=== PATIENT | female | born 1955 | race Caucasian/White ===

== ENCOUNTER 2017-07-13 14:01 | Emergency (ER) | payer MEDICARE, OTHER ==
[~2017-07-13] VITALS: Ht 157.5 cm; Wt 54.4 kg
[~2017-07-13 14:01] MED LIST: ALDACTAZIDE 251 EACH PO; AMITRIPTYLINE H10 MG PO; BUSPIRONE HCL15 MG PO; CLONAZEPAM0.25 MG PO; DIVALPROEX SOD250 MG PO; EVENING PRIMRO500 M1 PO; FISH OIL 1,2001 EACH PO; LANOXIN125 MCG PO; METHOCARBAMOL500 MG PO; MIRALAX119 GM PO; MIRALAX17 GM PO; MULTI VITAMIN1 EACH PO; NEURONTIN300 MG PO; NORCO 5-325 TA1 EACH PO; OMEPRAZOLE40 MG PO; PAXIL40 MG PO; POTASSIUM CHLO10 ME1 PO; PROMETHAZINE-COD5 ML PO; RITALIN5 MG PO; TIZANIDINE HCL4 M1 PO; TOVIAZ8 MG PO; TYSABRI300 MG/15 IV; ZOCOR40 MG PO; ZYRTEC10 MG PO
--- NOTE | 2017-07-13 17:22 | EKG ---
[facility] [address] [facility] [place] [address] Signed Normal sinus rhythm Normal ECG No previous ECGs available Confirmed by NELIA BEYER MD ([id number]) on 07/13/2017 5:22:38 PM Electronically Signed By: NELIA BEYER MD 07/13/17 1722 PATIENT NAME: KEEGAN CURRY Electrocardiogram DATE OF : 55 PHYSICIAN: NELIA BEYER MD REPORT #: [id number] REPORT IS CONFIDENTIAL AND NOT TO BE RELEASED WITHOUT AUTHORIZATION
== END 2017-07-13 17:12 | disposition home or self-care (01) ==
LOC: ED 14:01
DX: R00.2 Palpitations (principal); R07.9 Chest pain, unspecified; R79.89 Other specified abnormal findings of blood chemistry; G35 Multiple sclerosis; I48.91 Unspecified atrial fibrillation; Z90.710 Acquired absence of both cervix and uterus; Z90.6 Acquired absence of other parts of urinary tract; Z88.1 Allergy status to other antibiotic agents; Z88.8 Allergy status to other drugs, medicaments and biological substances; Z79.899 Other long term (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
CPT/HCPCS: 71010; 80053; 80162; 84484; 85025; 93005; 93010; 99284

== ENCOUNTER 2021-01-06 14:30 | Emergency (ER) | payer MEDICARE, OTHER ==
[~2021-01-06] VITALS: Ht 157.5 cm; Wt 56.7 kg
--- OUTSIDE RECORDS SUMMARY | 2021-01-06 14:32 | XMS ---
PreManage Notification: KEEGAN CURRY Security Complaint Manager Events No recent Security Events currently on file CRITERIA MET - [facility] CARE PROVIDERS There are no care providers on record at this time. Xiao has no Care Guidelines for this patient. Birgit VISIT COUNT (12 MO.) 1 [facility] TOTAL 1 NOTE: Visits indicate total known visits. ED/C VISIT TRACKING (12 MO.) 01/06/2021 14:30 [facility] [place] TYPE: Emergency COMPLAINT: - HEADACHE, SORE THROAT, FATIGUE INPATIENT VISIT TRACKING (12 MO.) No inpatient visits to display in this time frame [id number]
[2021-01-06] MEDS ORDERED: GABAPENTIN300 MG PO (15:02)
[2021-01-06] MEDS ORDERED: SUDOGEST30 MG PO (15:03)
[2021-01-06] MEDS ORDERED: DILTIAZEM ER120 MG PO (15:13)
[2021-01-06] MEDS ORDERED: TROSPIUM CHLORI20 MG PO (15:14)
[2021-01-06] MEDS ORDERED: ALLERGY RELIEF10 M1 PO (15:16)
[2021-01-06] MEDS ORDERED: CO Q-10200 MG PO (15:17)
[2021-01-06] MEDS ORDERED: COLACE100 MG PO (15:18)
[2021-01-06] MEDS ORDERED: TYSABRI300 MG/15 IV (15:21)
[2021-01-06] MEDS ORDERED: XALATAN2.5 ML OPTH (15:21)
[2021-01-06] MEDS ORDERED: ACETAMINOPHEN500 MG PO (15:22)
[2021-01-06] MEDS ORDERED: ACETAMINOPHEN-1 EAC1 PO (19:11)
[2021-01-06] MEDS ORDERED: AUGMENTIN 875-1 EACH PO (19:11)
== END 2021-01-06 19:22 | disposition home or self-care (01) ==
LOC: ED 14:30
DX: J32.1 Chronic frontal sinusitis (principal); J32.2 Chronic ethmoidal sinusitis; I48.91 Unspecified atrial fibrillation; Z88.8 Allergy status to other drugs, medicaments and biological substances; Z88.1 Allergy status to other antibiotic agents; Z79.899 Other long term (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
CPT/HCPCS: 70450; 80053; 81001; 85025; 96361; 96374; 99284-25; J1885; J7030

== ENCOUNTER → 2021-06-23 | Emergency (ER) | payer MEDICARE, OTHER ==
[~2021-06-23] VITALS: Ht 157.5 cm; Wt 56.7 kg
[~2021-06-23] MED LIST changes: +ACETAMINOPHEN-1 EAC1 PO; +ACETAMINOPHEN500 MG PO; +ALLERGY RELIEF10 M1 PO; +AUGMENTIN 875-1 EACH PO; +CO Q-10200 MG PO; +COLACE100 MG PO; +DILTIAZEM ER120 MG PO; +GABAPENTIN300 MG PO; +HYDROCODON-ACE1 EA10 PO; +KLONOPIN0.5 MG PO; +LIPITOR80 MG GT; +PROBIOTIC1 EAC1 PO; +SUDOGEST30 MG PO; +TROSPIUM CHLORI20 MG PO; +VITAMIN D350 MCG PO; +XALATAN2.5 ML OPTH
== END ==
LOC: ED 09:01
DX: S22.32XA Fracture of one rib, left side, initial encounter for closed fracture (principal); W18.39XA Other fall on same level, initial encounter; I48.91 Unspecified atrial fibrillation; Z88.8 Allergy status to other drugs, medicaments and biological substances; Z88.1 Allergy status to other antibiotic agents; Z88.5 Allergy status to narcotic agent; Z79.899 Other long term (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
CPT/HCPCS: 71101; 99283-25

== ENCOUNTER 2021-07-05 12:10 | Emergency (ER) | payer MEDICARE, OTHER ==
[~2021-07-05] VITALS: Ht 157.5 cm; Wt 56.7 kg
--- OUTSIDE RECORDS SUMMARY | 2021-07-05 12:14 | XMS ---
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 Birgit VISIT COUNT (12 MO.) [address] [place] [address] TOTAL 3 NOTE: Visits indicate total known visits. ED/UCC VISIT TRACKING (12 MO.) 07/05/2021 12:12 [facility] [place] TYPE: Emergency COMPLAINT: - FALL 06/23/2021 09:01 [facility] [place] TYPE: Emergency COMPLAINT: - FALL DIAGNOSES: - Allergy status to narcotic agent - Allergy status to other drugs, medicaments and biological substances - Pleurodynia - Allergy status to other antibiotic agents - Fracture of one rib, left side, initial encounter for closed fracture - Other iphone developer (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 - Unspecified atrial fibrillation - Other fall on same level, initial encounter 01/06/2021 14:30 [facility] [place] TYPE: Emergency COMPLAINT: - HEADACHE, SORE THROAT, FATIGUE DIAGNOSES: - Unspecified atrial fibrillation - Allergy status to other drugs, medicaments and biological substances - Chronic ethmoidal sinusitis - Chronic frontal sinusitis - Other senior care (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 - Allergy status to other antibiotic agents - Headache, unspecified INPATIENT VISIT TRACKING (12 MO.) No inpatient visits to display in this time frame [id number]
[2021-07-05] MEDS ORDERED: HYDROCODON-ACE1 EA10 PO (15:39)
== END 2021-07-05 15:50 | disposition home or self-care (01) ==
LOC: ED 12:10
DX: S22.31XA Fracture of one rib, right side, initial encounter for closed fracture (principal); W18.30XA Fall on same level, unspecified, initial encounter; I48.91 Unspecified atrial fibrillation; Z88.8 Allergy status to other drugs, medicaments and biological substances; Z88.5 Allergy status to narcotic agent; Z88.1 Allergy status to other antibiotic agents; Z79.899 Other long term (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
CPT/HCPCS: 71101; 99283-25

== ENCOUNTER 2021-09-21 11:32 | Emergency (ER) | payer MEDICARE, OTHER ==
[~2021-09-21] VITALS: Ht 157.5 cm; Wt 56.7 kg
--- OUTSIDE RECORDS SUMMARY | 2021-09-21 11:34 | XMS ---
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 EAylin VISIT COUNT (12 MO.) 4 [facility] Russell TOTAL 4 NOTE: Visits indicate total known visits. ED/UCC VISIT TRACKING (12 MO.) 09/21/2021 11:33 [facility] [place] TYPE: Emergency COMPLAINT: - FALL,BACK PAIN 07/05/2021 12:12 [facility] [place] TYPE: Emergency COMPLAINT: - FALL DIAGNOSES: - Fall on same level, unspecified, initial encounter - Allergy status to other drugs, medicaments and biological substances - Fracture of one rib, right side, initial encounter for closed fracture - Unspecified atrial fibrillation - Allergy status to narcotic agent - Allergy status to other antibiotic agents - Other [place] 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 - Other chest pain 06/23/2021 09:01 [facility] [place] TYPE: Emergency COMPLAINT: - FALL DIAGNOSES: - Allergy status to narcotic agent - Allergy status to other drugs, medicaments and biological substances - Pleurodynia - Allergy status to other antibiotic agents - Fracture of one rib, left side, initial encounter for closed fracture - Other [place] [facility] (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 - Unspecified atrial fibrillation - Other fall on same level, initial encounter 01/06/2021 14:[address] [facility] [place] TYPE: Emergency COMPLAINT: - HEADACHE, SORE THROAT, FATIGUE DIAGNOSES: - Unspecified atrial fibrillation - Allergy status to other drugs, medicaments and biological substances - Chronic ethmoidal sinusitis - Chronic frontal sinusitis - Other terminal operations manager (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 - Allergy status to other antibiotic agents - Headache, unspecified INPATIENT VISIT TRACKING (12 MO.) No inpatient visits to display in this time frame [id number]
== END 2021-09-21 13:10 | disposition home or self-care (01) ==
LOC: ED 11:32
DX: S20.222A Contusion of left back wall of thorax, initial encounter (principal); S20.219A Contusion of unspecified front wall of thorax, initial encounter; W18.30XA Fall on same level, unspecified, initial encounter; I48.91 Unspecified atrial fibrillation; Z88.8 Allergy status to other drugs, medicaments and biological substances; Z88.5 Allergy status to narcotic agent; Z88.1 Allergy status to other antibiotic agents; Z79.899 Other long term (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
CPT/HCPCS: 71046; 72100; 99283-25

== ENCOUNTER 2021-12-10 15:19 | Emergency (ER) | payer OTHER, MEDICARE ==
[~2021-12-10] VITALS: Ht 157.5 cm; Wt 59.0 kg
--- OUTSIDE RECORDS SUMMARY | 2021-12-10 15:22 | XMS ---
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 EAylin VISIT COUNT (12 MO.) 5 [facility] Russell TOTAL 5 NOTE: Visits indicate total known visits. ED/UCC VISIT TRACKING (12 MO.) 12/10/2021 15:19 [facility] [place] TYPE: Emergency COMPLAINT: - FALL 09/21/2021 11:33 [facility] [place] TYPE: Emergency COMPLAINT: - FALL,BACK PAIN DIAGNOSES: - Allergy status to other antibiotic agents - Contusion of left back wall of thorax, initial encounter - Unspecified atrial fibrillation - Other terminal supervisor (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 - LOW BACK PAIN, UNSPECIFIED - Allergy status to narcotic agent - Fall on same level, unspecified, initial encounter - Contusion of unspecified front wall of thorax, initial encounter - Allergy status to other drugs, medicaments and biological substances 07/05/2021 12:12 [facility] [place] TYPE: Emergency COMPLAINT: - FALL DIAGNOSES: - Fall on same level, unspecified, initial encounter - Allergy status to other drugs, medicaments and biological substances - Fracture of one rib, right side, initial encounter for closed fracture - Unspecified atrial fibrillation - Allergy status to narcotic agent - Allergy status to other antibiotic agents - Other [facility] (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 - Other chest pain 06/23/2021 09:01 [facility] [place] TYPE: Emergency COMPLAINT: - FALL DIAGNOSES: - Allergy status to narcotic agent - Allergy status to other drugs, medicaments and biological substances - Pleurodynia - Allergy status to other antibiotic agents - Fracture of one rib, left side, initial encounter for closed fracture - Other terminal supervisor (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 - Unspecified atrial fibrillation - Other fall on same level, initial encounter 01/06/2021 14:30 [facility] [place] TYPE: Emergency COMPLAINT: - HEADACHE, SORE THROAT, FATIGUE DIAGNOSES: - Unspecified atrial fibrillation - Allergy status to other drugs, medicaments and biological substances - Chronic ethmoidal sinusitis - Chronic frontal sinusitis - Other terminal supervisor (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 - Allergy status to other antibiotic agents - Headache, unspecified INPATIENT VISIT TRACKING (12 MO.) No inpatient visits to display in this time frame [id number]
[2021-12-10] MEDS ORDERED: NAPROSYN500 MG PO (15:51)
== END 2021-12-10 16:20 | disposition home or self-care (01) ==
LOC: ED 15:19
DX: S93.402A Sprain of unspecified ligament of left ankle, initial encounter (principal); G35 Multiple sclerosis; I48.91 Unspecified atrial fibrillation; Z88.5 Allergy status to narcotic agent; Z88.8 Allergy status to other drugs, medicaments and biological substances; Z88.1 Allergy status to other antibiotic agents; Z79.899 Other long term (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; W18.30XA Fall on same level, unspecified, initial encounter
CPT/HCPCS: 73610; 99283-25

== ENCOUNTER 2022-01-21 12:10 | Emergency (ER) | payer MEDICARE, OTHER ==
[~2022-01-21] VITALS: Ht 157.5 cm; Wt 59.0 kg
[~2022-01-21 12:10] MED LIST changes: +NAPROSYN500 MG PO
--- OUTSIDE RECORDS SUMMARY | 2022-01-21 12:12 | XMS ---
PreManage Notification: KEEGAN CURRY Security Feather Stitcher Events No recent Security Events currently on file CRITERIA MET - [facility] - 2 Visits in 30 Days CARE PROVIDERS GLORIA NEAL [facility] 01/07/2021-Current PHONE: [phone] Xiao has no Care Guidelines for this patient. Birgit VISIT COUNT (12 MO.) [address] [place] [address] TOTAL 6 NOTE: Visits indicate total known visits. 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 (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 - Allergy status to other antibiotic agents - Unspecified atrial fibrillation - Retention of urine, unspecified - Allergy status to narcotic agent - Multiple sclerosis - Allergy status to other drugs, medicaments and biological substances 12/10/2021 15:19 [facility] [place] TYPE: Emergency COMPLAINT: - FALL DIAGNOSES: - Other detention (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 - Pain in left ankle and joints of left foot - Sprain of unspecified ligament of left ankle, initial encounter - Allergy status to other drugs, medicaments and biological substances - Fall on same level, unspecified, initial encounter - Multiple sclerosis - Allergy status to other antibiotic agents - Allergy status to narcotic agent - Unspecified atrial fibrillation 09/21/2021 11:33 [facility] [place] TYPE: Emergency COMPLAINT: - FALL,BACK PAIN DIAGNOSES: - Allergy status to other antibiotic agents - Contusion of left back wall of thorax, initial encounter - Unspecified atrial fibrillation - Other dedicated intermodal truck driver (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 - LOW BACK PAIN, [...] status to other antibiotic agents - Other dedicated intermodal truck driver (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 - Other chest pain 06/23/2021 09:[address] [facility] [place] TYPE: Emergency COMPLAINT: - FALL DIAGNOSES: - Allergy status to narcotic agent - Allergy status to other drugs, medicaments and biological substances - Pleurodynia - Allergy status to other antibiotic agents - Fracture of one rib, left side, initial encounter for closed fracture - Other dedicated intermodal truck driver (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 - Unspecified atrial fibrillation - Other fall on same level, initial encounter INPATIENT VISIT TRACKING (12 MO.) No inpatient visits to display in this time frame [id number]
== END 2022-01-21 16:16 | disposition home or self-care (01) ==
LOC: ED 12:10
DX: R41.0 Disorientation, unspecified (principal); G35 Multiple sclerosis; I48.91 Unspecified atrial fibrillation; Z88.8 Allergy status to other drugs, medicaments and biological substances; Z88.5 Allergy status to narcotic agent; Z88.1 Allergy status to other antibiotic agents; Z79.899 Other long term (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
CPT/HCPCS: 36415; 80053; 80164; 81001; 85025; 99285

== ENCOUNTER 2022-05-02 17:35 | Emergency (ER) | payer MEDICARE, OTHER ==
[~2022-05-02] VITALS: Ht 157.5 cm; Wt 55.7 kg
--- OUTSIDE RECORDS SUMMARY | 2022-05-02 17:38 | XMS ---
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 EAylin VISIT COUNT (12 MO.) 8 [facility] Russell TOTAL 8 NOTE: Visits indicate total known visits. ED/UCC VISIT TRACKING (12 MO.) 05/02/2022 17:35 [facility] [place] TYPE: Emergency COMPLAINT: - FALL,HEAD INJ 02/06/2022 14:[address] [facility] [place] TYPE: Emergency COMPLAINT: - CATHETER REPLACEMENT 01/21/2022 12:[address] [facility] [place] TYPE: Emergency COMPLAINT: - POSS UTI DIAGNOSES: - Allergy status to other antibiotic agents - Allergy status to narcotic agent - Other terminal carman (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 - Disorientation, unspecified - Multiple sclerosis - Allergy status to other drugs, medicaments and biological substances - Unspecified atrial fibrillation 01/12/2022 14:29 [facility] [place] TYPE: Emergency COMPLAINT: - URINE PROBLEM DIAGNOSES: - Other longterm (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 - Allergy status to other antibiotic agents - Unspecified atrial fibrillation - Retention of urine, unspecified - Allergy status to narcotic agent - Multiple sclerosis - Allergy status to other drugs, medicaments and biological substances 12/10/2021 15:19 [facility] [place] TYPE: Emergency COMPLAINT: - FALL DIAGNOSES: - Other terminal carman (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 - Pain in left [...] Allergy status to other antibiotic agents - Low back pain, unspecified - Contusion of left back wall of thorax, initial encounter - Unspecified atrial fibrillation - Other terminal carman (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 - LOW BACK PAIN, [...] status to other antibiotic agents - Other longterm (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 - Other chest pain 06/23/2021 09:01 [facility] [place] TYPE: Emergency COMPLAINT: - FALL DIAGNOSES: - Allergy status to narcotic agent - Allergy status to other drugs, medicaments and biological substances - Pleurodynia - Allergy status to other antibiotic agents - Fracture of one rib, left side, initial encounter for closed fracture - Other terminal carman (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 - Unspecified atrial fibrillation - Other fall on same level, initial encounter INPATIENT VISIT TRACKING (12 MO.) No inpatient visits to display in this time frame [id number]
== END 2022-05-02 21:54 | disposition home or self-care (01) ==
LOC: ED 17:35
DX: S01.111A Laceration without foreign body of right eyelid and periocular area, initial encounter (principal); S16.1XXA Strain of muscle, fascia and tendon at neck level, initial encounter; S40.011A Contusion of right shoulder, initial encounter; W05.0XXA Fall from non-moving wheelchair, initial encounter; Z23 Encounter for immunization; I48.91 Unspecified atrial fibrillation; Z88.8 Allergy status to other drugs, medicaments and biological substances; Z88.5 Allergy status to narcotic agent; Z88.1 Allergy status to other antibiotic agents; Z79.899 Other long term (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
CPT/HCPCS: 12011; 70450; 72125; 73030; 90471; 90714; 99284-25; A9270

== ENCOUNTER 2022-05-15 05:45 | Day surgery (SDC) | payer MEDICARE, OTHER ==
[~2022-05-15] VITALS: Ht 157.5 cm; Wt 53.6 kg
[~2022-05-15 05:45] MED LIST changes: +MELATONIN5 M2 PO
--- NOTE | 2022-05-15 07:38 | NUR ---
PATIENT STATES SHE FELL WHILE PULLING WEEDS AND SPLIT HER UPPER RIGHT EYELID. SHE CURRENTLY HAS IT COVERED WITH STERI STRIPS. HER WHOLE RIGHT EYELID IS BRUISED.
--- NOTE | 2022-05-15 08:17 | NUR ---
05/15/22 0817 Tomasa Proctor 0805-PT TO PACU IN LL POSITION. REACTIVIE TO TACTILE AND VERBAL STIMULI BUT DOES NOT FOLLOW COMMANDS. BREATHING EASY AND UNLABORED. ORAL AIRWAY IN PLACE. SPO2 >95% ON 10L O2 VIA SIMPLE MASK. 0809-PT RESPOND TO VERBAL AND TACTILE SIMULI. DROWSY BUT FOLLOWS COMMANDS. ORAL AIRWAY REMOVED. PT ENCORUAGED TO COUGH AND TAKE DEEP BREATHS. COPIOUS ORAL SECRETIONS. PT SUCTIONED. O2 TITRATED DOWN TO 4 LPM VIA NC. 0815- PT DROWSY BUT AWAKE. VERBALIZING NEEDS OF TISSUE AND ABDOMINAL CRAMPING. PT ENCOURAGED TO PASS GAS. BREATHING EASY AND UNLABORED. SPO2 >95% O2 TITRATED DOWN TO 2LPM VIA NC.
--- NOTE | 2022-05-15 10:56 | OR ---
[facility] [address] [place], [place] [address] Signed DATE OF OPERATION: 05/15/2022 SURGEON: Evelia Vanegas MD PREOPERATIVE DIAGNOSES: 1. History of melanosis coli. 2. History of ischemic colon. 3. History of gastritis. 4. Progressing multiple sclerosis with proximal esophageal dysphagia. 5. Epigastric pain. 6. Melena. 7. Weight loss. 8. Gastroesophageal reflux disease. 9. History of GI bleeds, previously on NSAIDs. POSTOPERATIVE DIAGNOSES: 1. Mild diffuse gastritis. 2. 4 mm polyp proximal hepatic flexure. 3. 7 mm polyp proximal transverse colon (snare). 4. 3 mm polyps x2 at 8 cm. 5. Minimal internal hemorrhoid tissue. PROCEDURES: 1. EGD with CLOtest and biopsy of the antrum. 2. Colonoscopy with snare polypectomy and hot biopsy. ESTIMATED BLOOD LOSS: None. INDICATIONS: Valdez is a 66-year-old female, who unfortunately has progressive multiple sclerosis with proximal esophageal dysphagia. She is now in a wheelchair and had come to the office for upper and lower endoscopy. I helped her with colonoscopy in 2005. She had melanosis coli at that time. I helped with upper lower endoscopy in 2007. She had some gastritis with a negative CLOtest. The colonoscopy was negative at that time. She had done well with Versed and fentanyl but had significant postoperative nausea and vomiting. She went to our [facility] in 2016 and underwent colonoscopy with Dr. Brooke for significant ischemic colitis. This did not require surgery. Her anal sphincter tone continues to decrease as the multiple sclerosis has been advancing. Her swallowing has become progressively more difficult. She is losing weight and having Electronically Signed By: EVELIA VANEGAS MD 05/15/22 1056 PATIENT NAME: VALDEZ CURRY OPERATIVE REPORT DATE OF : 55 REPORT #: [id number] PHYSICIAN: EVELIA VANEGAS MD PCP: CHRISS NEAL MD REPORT IS CONFIDENTIAL AND NOT TO BE RELEASED WITHOUT AUTHORIZATION [facility] [address] [place], [place] [address] Signed epigastric abdominal pain. There is some concern about melena. However, her stool guaiac has been negative. Apparently, she has acid reflux in the past. She changed her and apparently the melanosis coli had resolved as well. In the office, I gave Valdez and her family pamphlets on both upper and lower endoscopy. We had reviewed the nature of the two tests. There is risk including, but not limited to gas bloating, crampy abdominal pain, bleeding, perforation requiring surgery, and missed diagnosis. In addition, because of her advancing multiple sclerosis and her very frail nature, we asked for monitored anesthesia care with propofol infusion. She had expressed understanding and wished to proceed. PROCEDURE NOTE: Valdez was taken into our endoscopy suite and placed in a supine semi-recumbent position. She has resolving ecchymoses around her right eye and some on the left eye which she fell out of her chair while she was trying to pull weeds outside. She is legally blind. The posterior oropharynx was anesthetized with lidocaine spray. A bite block was utilized for the case. She was given monitored anesthesia care with propofol per our nurse hall monitor. The adult gastroscope was introduced and advanced out the third portion of the duodenum without difficulty. The duodenum and pyloric channel were unremarkable. The stomach is the same. Very mild diffuse erythematous changes throughout the stomach. We took a biopsy from the antrum for CLOtest as well as pathologic review. Upon retroflexion of scope, she has the typical multiple benign-appearing polyps from using her proton pump inhibitor over the years. There was no evidence of hiatal hernia. The scope was withdrawn up through the area of the GE junction, which was compliant without stricture. There was no gastric or esophageal varices. Little or no disruption to the Z-line. There was no Stout's mucosa. There was no distal esophagitis. The middle and upper esophagus were unremarkable. What I can see around the vocal cords and her arytenoids, it is all fine as well. After this, the gas was suctioned out and the gastroscope removed. Valdez was rotated into the left lateral decubitus position. She was maintained on IV propofol per our nurse hall monitor. A digital rectal exam was performed and this was unremarkable. The adult colonoscope had been introduced and advanced under direct visualization of the camera. She has essentially no muscle mass in the muscle tone. We could easily see the scope has passed through the through her colon including the light underneath the right ribcage. With all due care and mild abdominal compression, we were able to advance the scope into the cecum itself. Her prep was good. We could easily see the appendiceal orifice and ileocecal valve. The scope was then slowly withdrawn. We removed the above mentioned polyps with the help of hot biopsy forceps. We did use the snare on the proximal transverse colon. That polyp had been suctioned through the scope. There was no diverticulosis. Once in the rectum, the scope had been retroflexed and she has very minimal internal hemorrhoid tissue. This tissue was not irritated whatsoever. After this, the gas was suctioned out and the colonoscope removed. Valdez Electronically Signed By: EVELIA VANEGAS MD 05/15/22 1056 PATIENT NAME: VALDEZ CURRY OPERATIVE REPORT DATE OF : 55 REPORT #: [id number] PHYSICIAN: EVELIA VANEGAS MD PCP: CHRISS NEAL MD REPORT IS CONFIDENTIAL AND NOT TO BE RELEASED WITHOUT AUTHORIZATION [address] [place], [place] [address] Signed tolerated the procedure quite well. RECOMMENDATIONS: Valdez will follow up in my office in 7 to 14 days to review her results. Unfortunately, it looks like her MS continues to progress. Evelia Vanegas MD ALB/MODL /[id number] cc: MD Dr. Chriss Contreras Copies: EVELIA VANEGAS MD ~ Electronically Signed By: EVELIA VANEGAS MD 05/15/22 1056 PATIENT NAME: VALDEZ CURRY OPERATIVE REPORT DATE OF : 55 REPORT #: [id number] PHYSICIAN: EVELIA VANEGAS MD PCP: CHRISS NEAL MD REPORT IS CONFIDENTIAL AND NOT TO BE RELEASED WITHOUT AUTHORIZATION
--- NOTE | 2022-05-18 10:26 | PATH ---
[facility] [address] [place], [place] [address] Signed SPECIMEN(S): A ANTRUM/PYLORUS BIOPSY SPECIMEN(S): B DISTAL HEPATIC FLEXURE COLON POLYP SPECIMEN(S): C PROXIMAL TRANSVERSE COLON POLYP SPECIMEN(S): D RECTAL POLYP AT 8 CM SPECIMEN SOURCE: A. ANTRUM/PYLORUS BIOPSY B. DISTAL HEPATIC FLEXURE COLON POLYP C. PROXIMAL TRANSVERSE COLON POLYP D. RECTAL POLYP AT 8 CM CLINICAL HISTORY: Esophagogastroduodenoscopy/colonoscopy. Epigastric pain, GERD, melena, MS. Postop: Gastritis, colon and rectal polyps. FINAL PATHOLOGIC DIAGNOSIS: A. Stomach, antrum/pylorus, biopsy: - Antral mucosa with reactive gastropathy. - Negative for Helicobacter organisms on HE stain. - Negative for dysplasia or malignancy. B. Colon, distal hepatic flexure, polyp, polypectomy: - Fragments of tubular adenoma. - Negative for high-grade dysplasia or malignancy. C. Colon, proximal transverse, polyp, polypectomy: - Fragments of tubular adenoma. - Negative for high-grade dysplasia or malignancy. D. Rectum, polyp, polypectomy: - Hyperplastic polyp. - Negative for dysplasia or malignancy. NAL:cml:C2NR MICROSCOPIC EXAMINATION: Histologic sections of all submitted blocks are examined by light microscopy. These findings, together with the gross examination, support the pathologic diagnosis. GROSS DESCRIPTION: Four specimens are received in four containers labeled with "LD." A. The specimen, labeled "LD, 1," and designated on the requisition "antrum/pylorus biopsy," is received in formalin and consists of one fragment of pink-brambila tissue (0.3 cm in greatest dimension). PATIENT NAME: KEEGAN CURRY PATHOLOGY DATE OF : 55 REPORT #: [id number] PHYSICIAN: BERNARDO CAPPS PCP: GLORIA NEAL MD REPORT IS CONFIDENTIAL AND NOT TO BE RELEASED WITHOUT AUTHORIZATION [facility] [address] [place], [place] [address] Signed The specimen is submitted entirely in cassette (A1). B. The specimen, labeled "LD, 2," and designated on the requisition "distal hepatic flexure polypectomy," is received in formalin and consists of two fragments of pink-brambila tissue (0.3 cm in greatest dimension). The specimen is submitted entirely in cassette (B1). C. The specimen, labeled "LD, 3," and designated on the requisition "proximal transverse polypectomy," is received in formalin and consists of four fragments of pink-brambila tissue (0.2-0.7 cm in greatest dimension). The specimen is submitted entirely in cassette (C1). D. The specimen, labeled "LD, 4," and designated on the requisition "8 cm rectum polypectomy," is received in formalin and consists of four fragments of pink-brambila tissue (0.2 cm in greatest dimension). The specimen is submitted entirely in cassette (D1). AC (under the direct supervision of a pathologist) The Gross Description was prepared using a voice recognition system. The report was reviewed for accuracy; however, sound-alike word errors, addition and/or deletions may occur. If there is any question about this report, please contact Client Services. PERFORMING LABORATORY: The technical component was performed by [facility], [address] [place] [id number] (CLIA# [id number]). Professional interpretation was performed by [facility], [facility], [address] [address] (CLIA# [id number]). Diagnostician: Lisa Ellis MD Pathologist Electronically Signed 05/18/2022 Copies: ~ PATIENT NAME: KEEGAN CURRY PATHOLOGY DATE OF : 55 REPORT #: [id number] PHYSICIAN: BERNARDO PATHOLOGY PCP: GLORIA NEAL MD REPORT IS CONFIDENTIAL AND NOT TO BE RELEASED WITHOUT AUTHORIZATION
== END 2022-05-15 09:00 | disposition home or self-care (01) ==
LOC: OPS 05:45 → DS 05:45 → OPS 06:00 → DS 08:15 → OPS 09:00
PROVIDERS: ATTEND Colon & Rectal Surgery
PROC: 0DBP8ZX Excision of Rectum, Via Natural or Artificial Opening Endoscopic, Diagnostic (ICD-10-PCS; 2022-05-15)
PROC: 0DBL8ZX Excision of Transverse Colon, Via Natural or Artificial Opening Endoscopic, Diagnostic (ICD-10-PCS; 2022-05-15)
PROC: 0DB78ZX Excision of Stomach, Pylorus, Via Natural or Artificial Opening Endoscopic, Diagnostic (ICD-10-PCS; principal; 2022-05-15 07:00)
PROC: 0DBL8ZX Excision of Transverse Colon, Via Natural or Artificial Opening Endoscopic, Diagnostic (ICD-10-PCS; 2022-05-15 07:00)
DX: K31.9 Disease of stomach and duodenum, unspecified (principal); D12.3 Benign neoplasm of transverse colon; K62.1 Rectal polyp; K29.70 Gastritis, unspecified, without bleeding; K64.8 Other hemorrhoids; G35 Multiple sclerosis; R13.14 Dysphagia, pharyngoesophageal phase; K21.9 Gastro-esophageal reflux disease without esophagitis; H54.8 Legal blindness, as defined in USA; M81.0 Age-related osteoporosis without current pathological fracture; E78.5 Hyperlipidemia, unspecified; I10 Essential (primary) hypertension; Z88.6 Allergy status to analgesic agent; Z88.5 Allergy status to narcotic agent; Z88.8 Allergy status to other drugs, medicaments and biological substances
CPT/HCPCS: 36415; 87077; J0690; J2704

== ENCOUNTER 2022-07-18 10:15 | Emergency (ER) | payer MEDICARE, OTHER ==
[~2022-07-18] VITALS: Ht 157.5 cm; Wt 53.9 kg
--- OUTSIDE RECORDS SUMMARY | 2022-07-18 10:18 | XMS ---
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 EAylin VISIT COUNT (12 MO.) 7 [facility] TOTAL 7 NOTE: Visits indicate total known visits. 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 - Allergy status to other drugs, medicaments and biological substances - Encounter for immunization - Laceration without foreign body of right eyelid and periocular area, initial encounter - Unspecified atrial fibrillation - Allergy status to narcotic agent - Allergy status to other antibiotic agents - Fall from non-moving wheelchair, initial encounter - Strain of muscle, fascia and tendon at neck level, initial encounter 02/06/2022 14:20 [facility] [place] TYPE: Emergency COMPLAINT: - CATHETER REPLACEMENT 01/21/2022 12:11 [facility] [place] TYPE: Emergency COMPLAINT: - POSS UTI DIAGNOSES: - Multiple sclerosis - Other long 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 care social worker (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 - Allergy status to other antibiotic agents - Allergy status to other drugs, medicaments and biological substances - Disorientation, unspecified - Allergy status to narcotic agent - Unspecified atrial fibrillation 01/12/2022 14:29 [facility] [place] TYPE: Emergency COMPLAINT: - URINE PROBLEM DIAGNOSES: - Allergy status to narcotic agent - Unspecified atrial fibrillation - Other long term care social worker (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 - Multiple sclerosis - Retention of urine, unspecified - Allergy status to other antibiotic agents - Allergy status to other drugs, medicaments and biological substances 12/10/2021 15:19 [facility] [place] TYPE: Emergency COMPLAINT: - FALL DIAGNOSES: - Fall on same level, unspecified, initial encounter - Sprain of unspecified ligament of left ankle, initial encounter - Other snf (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 - Allergy status to narcotic agent - Multiple sclerosis - Allergy status to other drugs, medicaments and biological substances - Pain in left ankle and joints of left foot - Unspecified atrial fibrillation - Allergy status to other antibiotic agents 09/21/2021 11:[address] [facility] [place] TYPE: Emergency COMPLAINT: - FALL,BACK PAIN DIAGNOSES: - Other long term care social worker (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 - Contusion of left back wall of thorax, initial encounter - Allergy status to other drugs, medicaments and biological substances - Allergy status to other antibiotic agents - Fall on same level, unspecified, initial encounter - LOW BACK PAIN, UNSPECIFIED - Unspecified atrial fibrillation - Low back pain, unspecified - Contusion of unspecified front wall of thorax, initial encounter - Allergy status to narcotic agent INPATIENT VISIT TRACKING (12 MO.) No inpatient visits to display in this time frame [email or web address]
[2022-07-18] MEDS ORDERED: HYDROCODON-ACE1 EA10 PO (15:50)
--- NOTE | 2022-07-19 16:21 | EKG ---
[facility] [address] [place] [address] Signed Normal sinus rhythm Normal ECG When compared with ECG of 13-MAY-2022 15:49, Nonspecific T wave abnormality has replaced inverted T waves in Inferior leads Confirmed by NELIA BEYER MD ([id number]) on 07/19/2022 4:21:41 PM Electronically Signed By: NELIA BEYER MD 07/19/22 1621 PATIENT NAME: LUIS CURRYINDIRA RICHTER Electrocardiogram DATE OF : 55 PHYSICIAN: NELIA BEYER MD REPORT #: [id number] REPORT IS CONFIDENTIAL AND NOT TO BE RELEASED WITHOUT AUTHORIZATION
== END 2022-07-18 16:33 | disposition home or self-care (01) ==
LOC: ED 10:15
DX: R07.89 Other chest pain (principal); I48.91 Unspecified atrial fibrillation; R00.0 Tachycardia, unspecified; Z88.6 Allergy status to analgesic agent; Z88.1 Allergy status to other antibiotic agents; Z88.5 Allergy status to narcotic agent; Z88.8 Allergy status to other drugs, medicaments and biological substances; Z79.899 Other long term (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
CPT/HCPCS: 36415; 71045; 71260; 80053; 83690; 84484; 85025; 85379; 93005; 93010; 96374; 96375; 99285-25; J2270; J2405; Q9967

== ENCOUNTER 2022-12-01 09:00 | Emergency (ER) | payer MEDICARE, OTHER ==
[~2022-12-01] VITALS: Ht 157.5 cm; Wt 53.9 kg
--- OUTSIDE RECORDS SUMMARY | 2022-12-01 09:03 | XMS ---
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 EAylin VISIT COUNT (12 MO.) 7 VENEC[facility] Russell TOTAL 7 NOTE: Visits indicate total known visits. ED/UCC VISIT TRACKING (12 MO.) 12/01/2022 09:00 [facility] [place] TYPE: Emergency COMPLAINT: - SYNCOPE EPISODE, HEAD INJURY 07/18/2022 10:16 [facility] [place] TYPE: Emergency COMPLAINT: - ABD PAIN DIAGNOSES: - Allergy status to other antibiotic agents - Other chest pain - Other long-term (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 - Unspecified atrial fibrillation - Allergy status to other drugs, medicaments and biological substances - Allergy status to analgesic agent - Tachycardia, unspecified - Allergy status to narcotic agent 05/02/2022 17:35 [facility] [place] TYPE: Emergency COMPLAINT: - FALL,HEAD INJ DIAGNOSES: - Encounter for immunization - Laceration without foreign body of right eyelid and periocular area, initial encounter - Unspecified atrial fibrillation - Allergy status to narcotic agent - Allergy status to other antibiotic agents - Fall from non-moving wheelchair, initial encounter - Strain of muscle, fascia and tendon at neck level, initial encounter - Contusion of right shoulder, initial encounter - Other long-term (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 - Allergy status to other drugs, medicaments and biological substances 02/06/2022 14:[address] [facility] [place] TYPE: Emergency COMPLAINT: - CATHETER REPLACEMENT 01/21/2022 12:[address] 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 [place] TYPE: Emergency COMPLAINT: - FALL DIAGNOSES: - Other long-term (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 - Allergy status to narcotic agent - Multiple sclerosis - Allergy status to other drugs, medicaments and biological substances - Pain in left ankle and joints of left foot - Unspecified atrial fibrillation - Allergy status to other antibiotic agents - Fall on same level, unspecified, initial encounter - Sprain of unspecified ligament of left ankle, initial encounter INPATIENT VISIT TRACKING (12 MO.) No inpatient visits to display in this time frame [id number]
--- NOTE | 2022-12-01 21:40 | EKG ---
[facility] [address] [place] [address] Signed Normal sinus rhythm Minimal voltage criteria for LVH, may be normal variant ( R in aVL ) Cannot rule out Anterior infarct , age undetermined Abnormal ECG When compared with ECG of 18-JUL-2022 10:57, Minimal criteria for Anterior infarct are now present Inverted T waves have replaced nonspecific T wave abnormality in Inferior leads Confirmed by Genesis Mena MD () on 12/01/2022 9:40:18 PM Electronically Signed By: GENESIS MENA MD 12/01/22 2140 PATIENT NAME: KEEGAN CURRY Electrocardiogram DATE OF : 55 PHYSICIAN: GENESIS MENA MD REPORT #: [id number] REPORT IS CONFIDENTIAL AND NOT TO BE RELEASED WITHOUT AUTHORIZATION
== END 2022-12-01 15:46 | disposition home or self-care (01) ==
LOC: ED 09:00
DX: G35 Multiple sclerosis (principal); Z20.822 Contact with and (suspected) exposure to COVID-19; W05.0XXA Fall from non-moving wheelchair, initial encounter; I48.91 Unspecified atrial fibrillation; Z88.8 Allergy status to other drugs, medicaments and biological substances; Z88.5 Allergy status to narcotic agent; Z88.1 Allergy status to other antibiotic agents; Z79.899 Other long term (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
CPT/HCPCS: 36415; 71045; 80053; 81001; 85025; 87502; 93005; 93010; 99284-25; C9803; J7040; U0003

== ENCOUNTER 2023-05-13 15:14 | Emergency (ER) | payer MEDICARE, OTHER ==
[~2023-05-13] VITALS: Ht 157.5 cm; Wt 53.4 kg
--- OUTSIDE RECORDS SUMMARY | 2023-05-13 15:15 | XMS ---
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 EAylin VISIT COUNT (12 MO.) 3 VENEC[facility] Russell TOTAL 3 NOTE: Visits indicate total known visits. ED/UCC VISIT TRACKING (12 MO.) 05/13/2023 15:14 [facility] [place] TYPE: Emergency COMPLAINT: - MUSCLE SPASMS 12/01/2022 09:00 [facility] [place] TYPE: Emergency COMPLAINT: - SYNCOPE EPISODE, HEAD INJURY DIAGNOSES: - Allergy status to narcotic agent - Allergy status to other antibiotic agents - Allergy status to other drugs, medicaments and biological substances - Contact with and (suspected) exposure to COVID-19 - Fall from non-moving wheelchair, initial encounter - Multiple sclerosis - Other longterm (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 - Unspecified atrial fibrillation - Weakness 07/18/2022 10:16 [facility] [place] TYPE: Emergency COMPLAINT: - ABD PAIN DIAGNOSES: - Allergy status to analgesic agent - Allergy status to narcotic agent - Allergy status to other antibiotic agents - Allergy status to other drugs, medicaments and biological substances - Other chest pain - 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
[2023-05-13 20:15] VITALS: BP 147/79
--- NOTE | 2023-05-14 06:44 | EKG ---
[facility] [address] [facility] [place], [place] [address] Signed Normal sinus rhythm When compared with ECG of 01-DEC-2022 09:17, No significant change was found Confirmed by MERE CARL MD ([id number]) on 05/14/2023 6:44:14 AM Electronically Signed By: MERE CARL 05/14/23 0644 PATIENT NAME: KEEGAN CURRY Electrocardiogram DATE OF : 55 PHYSICIAN: MERE CARL REPORT #: [id number] REPORT IS CONFIDENTIAL AND NOT TO BE RELEASED WITHOUT AUTHORIZATION
== END 2023-05-13 20:15 | disposition home or self-care (01) ==
LOC: ED 15:14
DX: M62.838 Other muscle spasm (principal); G35 Multiple sclerosis; I48.91 Unspecified atrial fibrillation; Z88.8 Allergy status to other drugs, medicaments and biological substances; Z88.1 Allergy status to other antibiotic agents; Z88.5 Allergy status to narcotic agent; Z79.899 Other long term (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
CPT/HCPCS: 93005; 93010; 99283-25

== ENCOUNTER 2023-06-16 19:12 | Emergency (ER) | payer MEDICARE, OTHER ==
[~2023-06-16] VITALS: Ht 157.5 cm; Wt 53.5 kg
--- OUTSIDE RECORDS SUMMARY | ~2023-06-16 | XMS | Continuity of Care Document ---
Demographics + + + | Address | [address] | | | [place] [address] | + + + | Preferred Language | Unknown | + + + | Marital Status | | + + + | Catholic Affiliation | Unknown | + + + | Race | White | + + + | Ethnic Group | Not or | + + + Author + + + | Author | [facility] | + + + | Organization | [facility] | + + + | Address | [address] | | | [place] [address] | + + + | Phone | | + + + Care Team Providers + + + + | Care Clinical Laboratory Service Teacher Name | Role | Phone | + + + + Unavailable | Unavailable | + + + + Unavailable | Unavailable | + + + + Unavailable | Unavailable | + + + + Unavailable | Unavailable | + + + + Unavailable | Unavailable | + + + + Allergies and Intolerances + + + + + + | date | description | facility | reaction | severity | + + + + + + | (no date) | Baclofen | [facility] | (no reaction) | (no severity) | | [facility] | | + + + + + + | (no date) | Pregabalin | [facility] | (no reaction) | (no severity) | | [facility] | | | + + + + + + | (no date) | Mild | [facility] | (no reaction) | (no severity) | | [facility] | | | + + + + + + | (no date) | Codeine | [facility] | (no reaction) | (no severity) | | [facility] | | | + + + + + + | (no date) | Erythromycin | [facility] | (no reaction) | (no severity) | | | base | [facility] | | | + + + + + + | (no date) | Ibuprofen | [facility] | (no reaction) | (no severity) | | [facility] | | | + + + + + + | (no date) | Baclofen | [facility] | (no reaction) | (no severity) | [facility] | | | + + + + + + | (no date) | Codeine | [facility] | (no reaction) | (no severity) | | [facility] | | | + + + + + + | (no date) | Pregabalin | [facility] | (no reaction) | (no severity) | | [facility] | | | + + + + + + | (no date) | Nausea alone | [facility] | (no reaction) | (no severity) | | [facility] | | | + + + + + + | (no date) | Pregabalin | [facility] | (no reaction) | (no severity) | | [facility] | | | + + + + + + | (no date) | Ibuprofen | [facility] | (no reaction) | (no severity) | | [facility] | | | + + + + + + | (no date) | Hallucinations | [facility] | (no reaction) | (no severity) | | [facility] | | | + + + + + + | (no date) | Pentazocine | [facility] | (no reaction) | (no severity) | | | Lactate | | | | + + + + + + | (no date) | codeine | [facility] | (no reaction) | (no severity) | + + + + + + | (no date) | baclofen | [facility] | (no reaction) | (no severity) | + + + + + + | (no date) | ibuprofen | [facility] | (no reaction) | (no severity) | + + + + + + | (no date) | erythromycin | [facility] | (no reaction) | (no severity) | | | base | | | | + + + + + + | (no date) | pregabalin | [facility] | (no reaction) | (no severity) | + + + + + + | (no date) | Baclofen | [facility] | (no reaction) | (no severity) | | [facility] | | | + + + + + + | (no date) | Erythromycin | [facility] | (no reaction) | (no severity) | | | base | [facility] | | | + + + + + + | (no date) | Codeine | [facility] | (no reaction) | (no severity) | | | [facility] | | | + + + + + + | (no date) | Ibuprofen | [facility] | (no reaction) | (no severity) | | | [facility] | | | + + + + + + Encounters No information. Functional Status No information. Immunizations + + + + | date | description | facility | + + + + | 2022-05-02 00:00 | Td (Adult) Preservative | [facility] | | | Free | | + + + + | 2022-05-02 00:00 | Td (Adult) Preservative | [facility] | | | Free | | + + + + | 2022-05-02 00:00 | Td (Adult) Preservative | [facility] | | | Free | | + + + + Medications + + + + | date | description | facility | + + + + | 2022-07-22 00:00 | CETIRIZINE HCL | [facility] | + + + + | 2022-12-01 00:00 | CETIRIZINE HCL | [facility] | + + + + | 2023-05-13 00:00 | CETIRIZINE HCL | [facility] | + + + + | 2023-05-17 00:00 | CETIRIZINE HCL | [facility] | + + + + | 2023-06-15 00:00 | CETIRIZINE HCL | [facility] | + + + + | 2022-07-22 00:00 | PSEUDOEPHEDRINE HCL | [facility] | + + + + | 2022-12-01 00:00 | PSEUDOEPHEDRINE HCL | [facility] | + + + + | 2023-05-13 00:00 | PSEUDOEPHEDRINE HCL | [facility] | + + + + | 2023-05-17 00:00 | PSEUDOEPHEDRINE HCL | [facility] | + + + + | 2023-06-15 00:00 | PSEUDOEPHEDRINE HCL | [facility] | + + + + | 2022-07-22 00:00 | GABAPENTIN | [facility] | + + + + | 2022-12-01 00:00 | GABAPENTIN | [facility] | + + + + | 2023-05-13 00:00 | GABAPENTIN | [facility] | + + + + | 2023-05-17 00:00 | GABAPENTIN | [facility] | + + + + | 2023-06-15 00:00 | GABAPENTIN | [facility] | + + + + | 2021-12-10 00:00 | NAPROXEN | [facility] | + + + + | 2021-12-10 00:00 | NAPROXEN | [facility] | + + + + | 2021-12-10 00:00 | NAPROXEN | [facility] | + + + + | 2022-07-22 00:00 | METHYLPHENIDATE HCL | [facility] | + + + + | 2022-12-01 00:00 | METHYLPHENIDATE HCL | [facility] | + + + + | 2023-05-13 00:00 | METHYLPHENIDATE HCL | [facility] | + + + + | 2023-05-17 00:00 | METHYLPHENIDATE HCL | [facility] | + + + + | 2023-06-15 00:00 | METHYLPHENIDATE HCL | [facility] | + + + + | 2022-07-22 00:00 | DIVALPROEX SODIUM | [facility] | + + + + | 2022-12-01 00:00 | DIVALPROEX SODIUM | [facility] | + + + + | 2023-05-13 00:00 | DIVALPROEX SODIUM | [facility] | + + + + | 2023-05-17 00:00 | DIVALPROEX SODIUM | [facility] | + + + + | 2023-06-15 00:00 | DIVALPROEX SODIUM | [facility] | + + + + | 2022-07-22 00:00 | DOCUSATE SODIUM | [facility] | + + + + | 2022-12-01 00:00 | DOCUSATE SODIUM | [facility] | + + + + | 2023-05-13 00:00 | DOCUSATE SODIUM | [facility] | + + + + | 2023-05-17 00:00 | DOCUSATE SODIUM | [facility] | + + + + | 2023-06-15 00:00 | DOCUSATE SODIUM | [facility] | + + + + | 2022-07-22 00:00 | LACTOBACILLUS ACIDOPHILUS | [facility] | + + + + | 2022-12-01 00:00 | LACTOBACILLUS ACIDOPHILUS | [facility] | + + + + | 2023-05-13 00:00 | LACTOBACILLUS ACIDOPHILUS | [facility] | + + + + | 2023-05-17 00:00 | LACTOBACILLUS ACIDOPHILUS | [facility] | + + + + | 2023-06-15 00:00 | LACTOBACILLUS ACIDOPHILUS | [facility] | + + + + | 2022-07-22 00:00 | SIMVASTATIN | [facility] | + + + + | 2022-12-01 00:00 | SIMVASTATIN | [facility] | + + + + | 2023-05-13 00:00 | SIMVASTATIN | [facility] | + + + + | 2023-05-17 00:00 | SIMVASTATIN | [facility] | + + + + | 2023-06-15 00:00 | SIMVASTATIN | [facility] | + + + + | 2023-06-15 00:00 | DIAZEPAM | [facility] | + + + + | 2014-05-01 00:00 | METHOCARBAMOL | [facility] | + + + + | 2014-05-01 00:00 | METHOCARBAMOL | [facility] | + + + + | 2014-05-01 00:00 | METHOCARBAMOL | [facility] | + + + + | 2023-06-15 00:00 | NORTRIPTYLINE HCL | [facility] | + + + + | 2022-07-22 00:00 | ACETAMINOPHEN | [facility] | + + + + | 2022-12-01 00:00 | ACETAMINOPHEN | [facility] | + + + + | 2023-05-13 00:00 | ACETAMINOPHEN | [facility] | + + + + | 2023-05-17 00:00 | ACETAMINOPHEN | [facility] | + + + + | 2023-06-15 00:00 | ACETAMINOPHEN | [facility] | + + + + | 2022-07-22 00:00 | EVENING PRIMROSE OIL | [facility] | + + + + | 2022-12-01 00:00 | EVENING PRIMROSE OIL | [facility] | + + + + | 2023-05-13 00:00 | EVENING PRIMROSE OIL | [facility] | + + + + | 2023-05-17 00:00 | EVENING PRIMROSE OIL | [facility] | + + + + | 2023-06-15 00:00 | EVENING PRIMROSE OIL | [facility] | + + + + | 2022-07-22 00:00 | OMEPRAZOLE | [facility] | + + + + | 2022-12-01 00:00 | OMEPRAZOLE | [facility] | + + + + | 2023-05-13 00:00 | OMEPRAZOLE | [facility] | + + + + | 2023-05-17 00:00 | OMEPRAZOLE | [facility] | + + + + | 2023-06-15 00:00 | OMEPRAZOLE | [facility] | + + + + | 2022-07-22 00:00 | CLONAZEPAM | [facility] | + + + + | 2022-12-01 00:00 | CLONAZEPAM | [facility] | + + + + | 2023-05-13 00:00 | CLONAZEPAM | [facility] | + + + + | 2023-05-17 00:00 | CLONAZEPAM | [facility] | + + + + | 2023-06-15 00:00 | CLONAZEPAM | [facility] | + + + + | 2022-07-22 00:00 | PAROXETINE HCL | [facility] | + + + + | 2022-12-01 00:00 | PAROXETINE HCL | [facility] | + + + + | 2023-05-13 00:00 | PAROXETINE HCL | [facility] | + + + + | 2023-05-17 00:00 | PAROXETINE HCL | [facility] | + + + + | 2023-06-15 00:00 | PAROXETINE HCL | [facility] | + + + + | 2022-07-22 00:00 | MELATONIN | [facility] | + + + + | 2022-12-01 00:00 | MELATONIN | [facility] | + + + + | 2023-05-13 00:00 | MELATONIN | [facility] | + + + + | 2023-05-17 00:00 | MELATONIN | [facility] | + + + + | 2023-06-15 00:00 | MELATONIN | [facility] | + + + + | 2022-07-22 00:00 | UBIDECARENONE | [facility] | + + + + | 2022-12-01 00:00 | UBIDECARENONE | [facility] | + + + + | 2023-05-13 00:00 | UBIDECARENONE | [facility] | + + + + | 2023-05-17 00:00 | UBIDECARENONE | [facility] | + + + + | 2023-06-15 00:00 | UBIDECARENONE | [facility] | + + + + | 2022-07-22 00:00 | ATORVASTATIN | [facility] | + + + + | 2022-12-01 00:00 | ATORVASTATIN | [facility] | + + + + | 2023-05-13 00:00 | ATORVASTATIN | [facility] | + + + + | 2023-05-17 00:00 | ATORVASTATIN | [facility] | + + + + | 2023-06-15 00:00 | ATORVASTATIN | [facility] | + + + + | 2022-07-22 00:00 | DIGOXIN | [facility] | + + + + | 2022-12-01 00:00 | DIGOXIN | [facility] | + + + + | 2023-05-13 00:00 | DIGOXIN | [facility] | + + + + | 2023-05-17 00:00 | DIGOXIN | [facility] | + + + + | 2023-06-15 00:00 | DIGOXIN | [facility] | + + + + | 2022-07-22 00:00 | GABAPENTIN | [facility] | + + + + | 2022-12-01 00:00 | GABAPENTIN | [facility] | + + + + | 2023-05-13 00:00 | GABAPENTIN | [facility] | + + + + | 2023-05-17 00:00 | GABAPENTIN | [facility] | + + + + | 2023-06-15 00:00 | GABAPENTIN | [facility] | + + + + | 2022-07-22 00:00 | LORATADINE | [facility] | + + + + | 2022-12-01 00:00 | LORATADINE | [facility] | + + + + | 2023-05-13 00:00 | LORATADINE | [facility] | + + + + | 2023-05-17 00:00 | LORATADINE | [facility] | + + + + | 2023-06-15 00:00 | LORATADINE | [facility] | + + + + | 2022-07-22 00:00 | CLONAZEPAM | [facility] | + + + + | 2022-12-01 00:00 | CLONAZEPAM | [facility] | + + + + | 2023-05-13 00:00 | CLONAZEPAM | [facility] | + + + + | 2023-05-17 00:00 | CLONAZEPAM | [facility] | + + + + | 2023-06-15 00:00 | CLONAZEPAM | [facility] | + + + + | 2022-07-22 00:00 | TIZANIDINE HCL | [facility] | + + + + | 2022-12-01 00:00 | TIZANIDINE HCL | [facility] | + + + + | 2023-05-13 00:00 | TIZANIDINE HCL | [facility] | + + + + | 2023-05-17 00:00 | TIZANIDINE HCL | [facility] | + + + + | 2023-06-15 00:00 | TIZANIDINE HCL | [facility] | + + + + | 2022-07-22 00:00 | LATANOPROST | [facility] | + + + + | 2022-12-01 00:00 | LATANOPROST | [facility] | + + + + | 2023-05-13 00:00 | LATANOPROST | [facility] | + + + + | 2023-05-17 00:00 | LATANOPROST | [facility] | + + + + | 2023-06-15 00:00 | LATANOPROST | [facility] | + + + + | 2022-07-22 00:00 | NATALIZUMAB | [facility] | + + + + | 2022-12-01 00:00 | NATALIZUMAB | [facility] | + + + + | 2023-05-13 00:00 | NATALIZUMAB | [facility] | + + + + | 2023-05-17 00:00 | NATALIZUMAB | [facility] | + + + + | 2023-06-15 00:00 | NATALIZUMAB | [facility] | + + + + | 2022-07-22 00:00 | POTASSIUM CHLORIDE | [facility] | + + + + | 2022-12-01 00:00 | POTASSIUM CHLORIDE | [facility] | + + + + | 2023-05-13 00:00 | POTASSIUM CHLORIDE | [facility] | + + + + | 2023-05-17 00:00 | POTASSIUM CHLORIDE | [facility] | + + + + | 2023-06-15 00:00 | POTASSIUM CHLORIDE | [facility] | + + + + | 2022-07-22 00:00 | Cholecalciferol (Vitamin | [facility] | | | D3) | | + + + + | 2022-12-01 00:00 | Cholecalciferol (Vitamin | [facility] | | | D3) | | + + + + | 2023-05-13 00:00 | Cholecalciferol (Vitamin | [facility] | | | D3) | | + + + + | 2023-05-17 00:00 | Cholecalciferol (Vitamin | [facility] | | | D3) | | + + + + | 2023-06-15 00:00 | Cholecalciferol (Vitamin | [facility] | | | D3) | | + + + + | 2022-07-22 00:00 | FESOTERODINE FUMARATE | [facility] | + + + + | 2022-12-01 00:00 | FESOTERODINE FUMARATE | [facility] | + + + + | 2023-05-13 00:00 | FESOTERODINE FUMARATE | [facility] | + + + + | 2023-05-17 00:00 | FESOTERODINE FUMARATE | [facility] | + + + + | 2023-06-15 00:00 | FESOTERODINE FUMARATE | [facility] | + + + + | 2021-01-06 00:00 | AMOXICILLIN/POTASSIUM CLAV | [facility] | | | | | + + + + | 2021-01-06 00:00 | AMOXICILLIN/POTASSIUM CLAV | [facility] | | | | | + + + + | 2021-01-06 00:00 | AMOXICILLIN/POTASSIUM CLAV | [facility] | | | | | + + + + | 2022-07-22 00:00 | DILTIAZEM HCL | [facility] | + + + + | 2022-12-01 00:00 | DILTIAZEM HCL | [facility] | + + + + | 2023-05-13 00:00 | DILTIAZEM HCL | [facility] | + + + + | 2023-05-17 00:00 | DILTIAZEM HCL | [facility] | + + + + | 2023-06-15 00:00 | DILTIAZEM HCL | [facility] | + + + + | 2023-06-15 00:00 | | [facility] | | | SULFAMETHOXAZOLE/TRIMETHOPR | | | | IM DS | | + + + + | 2022-07-22 00:00 | AMITRIPTYLINE HCL | [facility] | + + + + | 2022-12-01 00:00 | AMITRIPTYLINE HCL | [facility] | + + + + | 2023-05-13 00:00 | AMITRIPTYLINE HCL | [facility] | + + + + | 2023-05-17 00:00 | AMITRIPTYLINE HCL | [facility] | + + + + | 2023-06-15 00:00 | AMITRIPTYLINE HCL | [facility] | + + + + | 2021-06-23 00:00 | HYDROCODONE | [facility] | | | BIT/ACETAMINOPHEN | | + + + + | 2021-06-23 00:00 | HYDROCODONE | [facility] | | | BIT/ACETAMINOPHEN | | + + + + | 2021-06-23 00:00 | [facility]OCODONE | [facility] | | | BIT/ACETAMINOPHEN | | + + + + | 2021-07-05 00:00 | HYDROCODONE | [facility] | | | BIT/ACETAMINOPHEN | | + + + + | 2021-07-05 00:00 | HYDROCODONE | [facility] | | | BIT/ACETAMINOPHEN | | + + + + | 2021-07-05 00:00 | HYDROCODONE | [facility] | | | BIT/ACETAMINOPHEN | | + + + + | 2022-07-18 00:00 | HYDROCODONE | [facility] | | | BIT/ACETAMINOPHEN | | + + + + | 2022-07-18 00:00 | HYDROCODONE | [facility] | | | BIT/ACETAMINOPHEN | | + + + + | 2022-07-18 00:00 | HYDROCODONE | [facility] | | | BIT/ACETAMINOPHEN | | + + + + | 2013-11-28 00:00 | HYDROCODONE | [facility] | | | BIT/ACETAMINOPHEN | | + + + + | 2013-11-28 00:00 | HYDROCODONE | [facility] | | | BIT/ACETAMINOPHEN | | + + + + | 2013-11-28 00:00 | HYDROCODONE | [facility] | | | BIT/ACETAMINOPHEN | | + + + + | 2022-07-22 00:00 | BUSPIRONE HCL | [facility] | + + + + | 2022-12-01 00:00 | BUSPIRONE HCL | [facility] | + + + + | 2023-05-13 00:00 | BUSPIRONE HCL | [facility] | + + + + | 2023-05-17 00:00 | BUSPIRONE HCL | [facility] | + + + + | 2023-06-15 00:00 | BUSPIRONE HCL | [facility] | + + + + | 2022-07-22 00:00 | POLYETHYLENE GLYCOL 3350 | [facility] | + + + + | 2022-12-01 00:00 | POLYETHYLENE GLYCOL 3350 | [facility] | + + + + | 2023-05-13 00:00 | POLYETHYLENE GLYCOL 3350 | [facility] | + + + + | 2023-05-17 00:00 | POLYETHYLENE GLYCOL 3350 | [facility] | + + + + | 2023-06-15 00:00 | POLYETHYLENE GLYCOL 3350 | [facility] | + + + + | 2022-07-22 00:00 | PROMETHAZINE/CODEINE | [facility] | + + + + | 2022-12-01 00:00 | PROMETHAZINE/CODEINE | [facility] | + + + + | 2023-05-13 00:00 | PROMETHAZINE/CODEINE | [facility] | + + + + | 2023-05-17 00:00 | PROMETHAZINE/CODEINE | [facility] | + + + + | 2023-06-15 00:00 | PROMETHAZINE/CODEINE | [facility] | + + + + | 2021-01-06 00:00 | ACETAMINOPHEN WITH CODEINE | [facility] | | | | | + + + + | 2021-01-06 00:00 | ACETAMINOPHEN WITH CODEINE | [facility] | | | | | + + + + | 2021-01-06 00:00 | ACETAMINOPHEN WITH CODEINE | [facility] | | | | | + + + + Problems + + + + | date | description | facility | + + + + | 2014-12-03 00:00 | Right shoulder pain | [facility] | + + + + | 2014-12-03 00:00 | Right shoulder pain | [facility] | + + + + | 2014-12-03 00:00 | Right shoulder pain | [facility] | + + + + | 2014-12-03 00:00 | Right hip pain | [facility] | + + + + | 2014-12-03 00:00 | Right hip pain | [facility] | + + + + | 2014-12-03 00:00 | Right hip pain | [facility] | + + + + | 2017-07-13 00:00 | Palpitations | [facility] | + + + + | 2017-07-13 00:00 | Palpitations | [facility] | + + + + | 2017-07-13 00:00 | Palpitations | [facility] | + + + + | 2017-07-13 00:00 | Chest pain | [facility] | + + + + | 2017-07-13 00:00 | Chest pain | [facility] | + + + + | 2017-07-13 00:00 | Chest pain | [facility] | + + + + | 2017-07-13 00:00 | Elevated digoxin level | [facility] | + + + + | 2017-07-13 00:00 | Elevated digoxin level | [facility] | + + + + | 2017-07-13 00:00 | Elevated digoxin level | [facility] | + + + + | 2018-10-15 00:00 | Contusion of head | [facility] | + + + + | 2018-10-15 00:00 | Contusion of head | [facility] | + + + + | 2018-10-15 00:00 | Contusion of head | [facility] | + + + + | 2018-10-15 00:00 | Contusion of right hip | [facility] | + + + + | 2018-10-15 00:00 | Contusion of right hip | [facility] | + + + + | 2018-10-15 00:00 | Contusion of right hip | [facility] | + + + + | 2021-06-23 00:00 | Fracture of rib of left | [facility] | | | side | | + + + + | 2021-06-23 00:00 | Fracture of rib of left | [facility] | | | side | | + + + + | 2021-06-23 00:00 | Fracture of rib of left | [facility] | | | side | | + + + + | 2021-06-23 00:00 | Fall | [facility] | + + + + | 2021-06-23 00:00 | Fall | [facility] | + + + + | 2021-06-23 00:00 | Fall | [facility] | + + + + | 2021-07-05 00:00 | Fracture of rib | [facility] | + + + + | 2021-07-05 00:00 | Fracture of rib | [facility] | + + + + | 2021-07-05 00:00 | Fracture of rib | [facility] | + + + + | 2021-12-10 00:00 | Sprain of left ankle | [facility] | + + + + | 2021-12-10 00:00 | Sprain of left ankle | [facility] | + + + + | 2021-12-10 00:00 | Sprain of left ankle | [facility] | + + + + | 2022-01-12 00:00 | Acute retention of urine | [facility] | + + + + | 2022-01-12 00:00 | Acute retention of urine | [facility] | + + + + | 2022-01-12 00:00 | Acute retention of urine | [facility] | + + + + | 2022-01-21 00:00 | Confusion | [facility] | + + + + | 2022-01-21 00:00 | Confusion | [facility] | + + + + | 2022-01-21 00:00 | Confusion | [facility] | + + + + | 2022-02-06 00:00 | Encounter for medical | [facility] | | | screening examination | | + + + + | 2022-02-06 00:00 | Encounter for medical | [facility] | | | screening examination | | + + + + | 2022-02-06 00:00 | Encounter for medical | [facility] | | | screening examination | | + + + + | 2022-05-02 00:00 | Laceration of right | [facility] | | | eyebrow | | + + + + | 2022-05-02 00:00 | Laceration of right | [facility] | | | eyebrow | | + + + + | 2022-05-02 00:00 | Laceration of right | [facility] | | | eyebrow | | + + + + | 2022-05-02 00:00 | Strain of neck muscle | [facility] | + + + + | 2022-05-02 00:00 | Strain of neck muscle | [facility] | + + + + | 2022-05-02 00:00 | Strain of neck muscle | [facility] | + + + + | 2022-05-02 00:00 | Contusion of right | [facility] | | | shoulder | | + + + + | 2022-05-02 00:00 | Contusion of right | [facility] | | | shoulder | | + + + + | 2022-05-02 00:00 | Contusion of right | [facility] | | | shoulder | | + + + + | 2022-05-02 17:35 | Laceration without foreign | [facility] | | | body of right eyelid and | [facility] | | | periocular area, initial | | | | encounter | | + + + + | 2022-05-02 17:35 | Strain of muscle, fascia | [facility] | | | and tendon at neck level, | [facility] | | | initial encounter | | + + + + | 2022-05-02 17:35 | Contusion of right | [facility] | | | shoulder, initial encounter | [facility] | | | | | + + + + | 2022-05-02 17:35 | Fall from non-moving | [facility] | | | wheelchair, initial | [facility] | | | encounter | | + + + + | 2022-05-02 17:35 | Encounter for immunization | [facility] | | | | [facility] | + + + + | 2022-05-15 05:45 | 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 | | + + + + | 2022-05-15 05:45 | HYPERLIPIDEMIA, | [facility] | | | UNSPECIFIED | | + + + + | 2022-05-15 05:45 | 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 | | | | (G35-G37) | | + + + + | 2022-05-15 05:45 | LEGAL BLINDNESS, | [facility] | | | DEFINED IN [place] | | + + + + | 2022-05-15 05:45 | Essential (primary) | [facility] | | | hypertension | | + + + + | 2022-05-15 05:45 | GASTRO-ESOPHAGEAL REFLUX | [facility] | | | DISEASE WITHOUT | | + + + + | 2022-05-15 05:45 | GASTRITIS, UNSPECIFIED, | [facility] | | | WITHOUT BLEEDING | | + + + + | 2022-05-15 05:45 | DISEASE OF STOMACH AND | [facility] | | | DUODENUM, UNSPECIFIED | | + + + + | 2022-05-15 05:45 | RECTAL POLYP | [facility] | + + + + | 2022-05-15 05:45 | OTHER HEMORRHOIDS | [facility] | + + + + | 2022-05-15 05:45 | MELENA | [facility] | + + + + | 2022-05-15 05:45 | AGE-RELATED OSTEOPOROSIS | [facility] | | | W/O CURRENT PATHOLOGICAL | | + + + + | 2022-05-15 05:45 | EPIGASTRIC PAIN | [facility] | + + + + | 2022-05-15 05:45 | DYSPHAGIA, | [facility]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 | | + + + + | 2022-05-15 05:45 | ALLERGY STATUS TO NARCOTIC | [facility] | | | AGENT STATUS | | + + + + | 2022-05-15 05:45 | ALLERGY STATUS TO | [facility] | | | ANALGESIC AGENT STATUS | | + + + + | 2022-05-15 05:45 | ALLERGY STATUS TO OTH | [facility] | | | DRUG/MEDS/BIOL SUBST STATUS | | | | | | + + + + | 2022-07-13 16:31 | PLEURODYNIA | [facility] | + + + + | 2022-07-16 19:25 | RIGHT UPPER QUADRANT PAIN | [facility] | + + + + | 2022-07-18 10:16 | UNSPECIFIED ATRIAL | [facility] | | | FIBRILLATION | | + + + + | 2022-07-18 10:16 | TACHYCARDIA, UNSPECIFIED | [facility] | + + + + | 2022-07-18 10:16 | OTHER CHEST PAIN | [facility] | + + + + | 2022-07-18 10:16 | OTHER MOLDED GRID AND PARTS INSPECTOR (CURRENT) | [facility] | | | DRUG THERAPY | | + + + + | 2022-07-18 10:16 | ALLERGY STATUS TO OTHER | [facility] | | | ANTIBIOTIC AGENTS STATUS | | + + + + | 2022-07-18 10:16 | ALLERGY STATUS TO NARCOTIC | [facility] | | | AGENT STATUS | | + + + + | 2022-07-18 10:16 | ALLERGY STATUS TO | [facility] | | | ANALGESIC AGENT STATUS | | + + + + | 2022-07-18 10:16 | ALLERGY STATUS TO OTH | [facility] | | | DRUG/MEDS/BIOL SUBST STATUS | | | | | | + + + + | 2022-12-01 00:00 | Multiple sclerosis | [facility] | + + + + | 2022-12-01 00:00 | Multiple sclerosis | [facility] | + + + + | 2022-12-01 00:00 | Multiple sclerosis | [facility] | + + + + | 2022-12-01 00:00 | Weakness | [facility] | + + + + | 2022-12-01 00:00 | Weakness | [facility] | + + + + | 2022-12-01 00:00 | Weakness | [facility] | + + + + | 2022-12-01 09:00 | 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 | | | | (G35-G37) | | + + + + | 2022-12-01 09:00 | UNSPECIFIED ATRIAL | [facility] | | | FIBRILLATION | | + + + + | 2022-12-01 09:00 | WEAKNESS | [facility] | + + + + | 2022-12-01 09:00 | FALL FROM NON-MOVING | [facility] | | | WHEELCHAIR, INITIAL | | | | ENCOUNTER | | + + + + | 2022-12-01 09:00 | OTHER MOLDED GRID AND PARTS INSPECTOR (CURRENT) | [facility] | | | DRUG THERAPY | | + + + + | 2022-12-01 09:00 | ALLERGY STATUS TO OTHER | [facility] | | | ANTIBIOTIC AGENTS STATUS | | + + + + | 2022-12-01 09:00 | ALLERGY STATUS TO NARCOTIC | [facility] | | | AGENT STATUS | | + + + + | 2022-12-01 09:00 | ALLERGY STATUS TO OTH | [facility] | | | DRUG/MEDS/BIOL SUBST STATUS | | | | | | + + + + | 2023-02-04 10:48 | 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 | | | | (G35-G37) | | + + + + | 2023-02-04 10:48 | UNQUALIFIED VISUAL LOSS, | [facility] | | | RIGHT EYE, NORM | | + + + + | 2023-05-13 00:00 | Muscle spasms of neck | [facility] | + + + + | 2023-05-13 00:00 | Muscle spasms of neck | [facility] | + + + + | 2023-05-13 15:14 | 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 | | | | (G35-G37) | | + + + + | 2023-05-13 15:14 | UNSPECIFIED ATRIAL | [facility] | | | FIBRILLATION | | + + + + | 2023-05-13 15:14 | OTHER MUSCLE SPASM | [facility] | + + + + | 2023-05-13 15:14 | OTHER LONG-TERM (CURRENT) | [facility] | | | DRUG THERAPY | | + + + + | 2023-05-13 15:14 | ALLERGY STATUS TO OTHER | [facility] | | | ANTIBIOTIC AGENTS STATUS | | + + + + | 2023-05-13 15:14 | ALLERGY STATUS TO NARCOTIC | [facility] | | | AGENT STATUS | | + + + + | 2023-05-13 15:14 | ALLERGY STATUS TO OTH | [facility] | | | DRUG/MEDS/BIOL SUBST STATUS | | | | | | + + + + | 2023-05-17 00:00 | Acute back pain | [facility] | + + + + | 2023-05-17 19:54 | 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 | | | | (G35-G37) | | + + + + | 2023-05-17 19:54 | DORSALGIA, UNSPECIFIED | [facility] | + + + + | 2023-05-17 19:54 | OTHER MOLDED GRID AND PARTS INSPECTOR (CURRENT) | [facility] | | | DRUG THERAPY | | + + + + | 2023-05-17 19:54 | ALLERGY STATUS TO OTHER | [facility] | | | ANTIBIOTIC AGENTS STATUS | | + + + + | 2023-05-17 19:54 | ALLERGY STATUS TO NARCOTIC | [facility] | | | AGENT STATUS | | + + + + | 2023-05-17 19:54 | ALLERGY STATUS TO | [facility] | | | ANALGESIC AGENT STATUS | | + + + + | 2023-05-17 19:54 | ALLERGY STATUS TO OTH | [facility] | | | DRUG/MEDS/BIOL SUBST STATUS | | | | | | + + + + | 2023-05-17 19:54 | DEPENDENCE ON WHEELCHAIR | [facility] | + + + + | 2023-05-28 08:56 | 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 | | | | (G35-G37) | | + + + + | 2023-05-28 08:56 | SPONDYLOSIS W/O MYELOPATHY | [facility] | | | OR RADICULOPATHY, THORA | | + + + + | 2023-05-28 08:56 | LOW BACK PAIN, UNSPECIFIED | [facility] | | | | | + + + + | 2023-05-28 08:56 | PAIN IN THORACIC SPINE | [facility] | + + + + | 2023-05-28 08:56 | OTH DISRD OF BONE DENSITY | [facility] | | | AND STRUCTURE, OTHER SIT | | + + + + | 2023-05-28 08:56 | ENCOUNTER FOR THERAPEUTIC | [facility] | | | DRUG LEVEL MON | | + + + + | 2023-06-15 00:00 | Cellulitis | [facility] | + + + + | 2023-06-15 10:45 | 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 | | | | (G35-G37) | | + + + + | 2023-06-15 11:00 | 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 | | | | (G35-G37) | | + + + + Procedures + + + + | date | description | facility | + + + + | 2022-05-15 00:00 | EXCISION OF STOMACH, | [facility] | | | PYLORUS, ENDO, DIAGN | | + + + + | 2022-05-15 00:00 | EXCISION OF TRANSVERSE | [facility] | | | COLON, ENDO, DIAGN | | + + + + | 2022-05-15 00:00 | EXCISION OF RECTUM, ENDO, | [facility] | | | DIAGN | | + + + + | 2022-05-15 00:00 | EGD BIOPSY SINGLE/MULTIPLE | [facility] | | | | | + + + + | 2022-05-15 00:00 | COLONOSCOPY W/LESION | [facility] | | | REMOVAL | | + + + + | 2022-05-15 00:00 | COLONOSCOPY W/LESION | [facility] | | | REMOVAL | | + + + + Results/Labs +--------+--------+ +---------+--------+---------+ | test | date | facility | value | unit | notes | +--------+--------+ +---------+--------+---------+ + + | Result panel 1 | + + + + + + + + + | | 2022-05-15 | [facility] | NEGATIVE | (missing) | (missing) | | (unavailable | 07:35 | [facility] | | | + + + + + + + + + | Result panel 2 | + + + + + +-------+ + + | | 2022-07-18 | [facility] | 9.5 | (missing) | (missing) | | (unavailable | 10:25 | [facility] | | | | + + + +-------+ + + + + | Result panel 3 | + + + + + +--------+ + + | | 2022-07-18 | [facility] | 4.51 | (missing) | (missing) | | (unavailable | 10:25 | [facility] | | | | + + + +--------+ + + + + | Result panel 4 | + + + + + +--------+ + + | | 2022-07-18 | [facility] | 12.7 | (missing) | (missing) | | (unavailable | 10:25 | [facility] | | | | + + + +--------+ + + + + | Result panel 5 | + + + + + +--------+ + + | | 2022-07-18 | [facility] | 38.3 | (missing) | (missing) | | (unavailable | 10:25 | [facility] | | | | + + + +--------+ + + + + | Result panel 6 | + + + + + +--------+ + + | | 2022-07-18 | [facility] | 85.0 | (missing) | (missing) | | (unavailable | 10:25 | [facility] | | | | + + + +--------+ + + + + | Result panel 7 | + + + + + +--------+ + + | | 2022-07-18 | [facility] | 28.3 | (missing) | (missing) | | (unavailable | 10:25 [facility] | | | | + + + +--------+ + + + + | Result panel 8 | + + + + + +--------+ + + | | 2022-07-18 | [facility] | 33.3 | (missing) | (missing) | | (unavailable | 10:25 [facility] | | | | + + + +--------+ + + + + | Result panel 9 | + + + + + +--------+ + + | | 2022-07-18 | [facility] | 15.3 | (missing) | (missing) | | (unavailable | 10:25 [facility] | | | | + + + +--------+ + + + + | Result panel 10 | + + + + + +-------+ + + | | 2022-07-18 | [facility] | 394 | (missing) | (missing) | | (unavailable | 10:25 | [facility] | | | | + + + +-------+ + + + + | Result panel 11 | + + + + + +--------+ + + | | 2022-07-18 | [facility] | 52.3 | (missing) | (missing) | | (unavailable | 10:25 [facility] | | | | + + + +--------+ + + + + | Result panel 12 | + + + + + +--------+ + + | | 2022-07-18 | [facility] | 41.5 | (missing) | (missing) | | (unavailable | 10:25 [facility] | | | | + + + +--------+ + + + + | Result panel 13 | + + + + + +-------+ + + | | 2022-07-18 | [facility] | 5.2 | (missing) | (missing) | | (unavailable | 10:25 [facility] | | | | + + + +-------+ + + + + | Result panel 14 | + + + + + +-------+ + + | | 2022-07-18 | [facility] | 0.5 | (missing) | (missing) | | (unavailable | 10:25 [facility] | | | | + + + +-------+ + + + + | Result panel 15 | + + + + + +-------+ + + | | 2022-07-18 | [facility] | 0.5 | (missing) | (missing) | | (unavailable | 10:25 [facility] | | | | + + + +-------+ + + + + | Result panel 16 | + + + + + +--------+ + + | | 2022-07-18 | [facility] | 0.40 | (missing) | (missing) | | (unavailable | 10:25 [facility] | | | + + + +--------+ + + + + | Result panel 17 | + + + + + +------+---------+ + | | 2022-07-18 | [facility] | 91 | mg/dL | (missing) | | (unavailable | 10:25 | [facility] | | | | + + + +------+---------+ + + + | Result panel 18 | + + + + + +------+---------+ + | | 2022-07-18 | [facility] | 14 | mg/dL | (missing) | | (unavailable | 10:25 | [facility] | | | | + + + +------+---------+ + + + | Result panel 19 | + + + + + +--------+---------+ + | | 2022-07-18 | [facility] | 0.71 | mg/dL | (missing) | | (unavailable | 10:25 [facility] | | | | + + + +--------+---------+ + + + | Result panel 20 | + + + + + +------+ + + | | 2022-07-18 | [facility] | 93 | (missing) | (missing) | | (unavailable | 10:25 [facility] | | | + + + +------+ + + + + | Result panel 21 | + + + + + +---------+ + + | | 2022-07-18 | [facility] | 19.71 | (missing) | (missing) | | (unavailable | 10:25 [facility] | | | | + + + +---------+ + + + + | Result panel 22 | + + + + + +-------+ + + | | 2022-07-18 | [facility] | 139 | (missing) | (missing) | | (unavailable | 10:25 [facility] | | | + + + +-------+ + + + + | Result panel 23 | + + + + + +-------+ + + | | 2022-07-18 | [facility] | 3.7 | (missing) | (missing) | | (unavailable | 10:25 [facility] | | | + + + +-------+ + + + + | Result panel 24 | + + + + + +-------+ + + | | 2022-07-18 | [facility] | 103 | (missing) | (missing) | | (unavailable | 10:25 [facility] | | | + + + +-------+ + + + + | Result panel 25 | + + + + + +------+ + + | | 2022-07-18 | [facility] | 29 | (missing) | (missing) | | (unavailable | 10:25 [facility] | | | + + + +------+ + + + + | Result panel 26 | + + + + + +--------+ + + | | 2022-07-18 | [facility] | 10.7 | (missing) | (missing) | | (unavailable | 10:25 [facility] | | | + + + +--------+ + + + + | Result panel 27 | + + + + + +-------+---------+ + | | 2022-07-18 | [facility] | 9.4 | mg/dL | (missing) | | (unavailable | 10:25 [facility] | | | | + + + +-------+---------+ + + + | Result panel 28 | + + + + + +-------+ + + | | 2022-07-18 | [facility] | 7.6 | (missing) | (missing) | | (unavailable | 10:25 [facility] | | | | + + + +-------+ + + + + | Result panel 29 | + + + + + +-------+ + + | | 2022-07-18 | [facility] | 3.4 | (missing) | (missing) | | (unavailable | 10:25 [facility] | | | + + + +-------+ + + + + | Result panel 30 | + + + + + +-------+ + + | | 2022-07-18 | [facility] | 4.2 | (missing) | (missing) | | (unavailable | 10:25 [facility] | | | + + + +-------+ + + + + | Result panel 31 | + + + + + +--------+ + + | | 2022-07-18 | [facility] | 0.81 | (missing) | (missing) | | (unavailable | 10:25 [facility] | | | + + + +--------+ + + + + | Result panel 32 | + + + + + +-------+ + + | | 2022-07-18 | [facility] | 0.3 | (missing) | (missing) | | (unavailable | 10:25 [facility] | | | + + + +-------+ + + + + | Result panel 33 | + + + + + +------+ + + | | 2022-07-18 | [facility] | 21 | (missing) | (missing) | | (unavailable | 10:25 [facility] | | | + + + +------+ + + + + | Result panel 34 | + + + + + +------+ + + | | 2022-07-18 | [facility] | 28 | (missing) | (missing) | | (unavailable | 10:25 [facility] | | | + + + +------+ + + + + | Result panel 35 | + + + + + +-------+ + + | | 2022-07-18 | [facility] | 102 | (missing) | (missing) | | (unavailable | 10:25 [facility] | | | + + + +-------+ + + + + | Result panel 36 | + + + + + +-------+ + + | | 2022-07-18 | [facility] | 115 | (missing) | (missing) | | (unavailable | 10:25 [facility] | | | + + + +-------+ + + + + | Result panel 37 | + + + + + +--------+ + + | | 2022-07-18 | [facility] | <4.0 | (missing) | (missing) | | (unavailable | 10:25 [facility] | | | + + + +--------+ + + + + | Result panel 38 | + + + + + +-------+ + + | | 2022-12-01 | [facility] | 3.6 | (missing) | (missing) | | (unavailable | 09:15:08 | [facility] | | | + + + +-------+ + + + + | Result panel 39 | + + + + + +-------+ + + | | 2022-12-01 | [facility] | 4.2 | (missing) | (missing) | | (unavailable | 09:15:08 [facility] | | | + + + +-------+ + + + + | Result panel 40 | + + + + + +--------+ + + | | 2022-12-01 | [facility] | 0.86 | (missing) | (missing) | | (unavailable | 09:15:08 [facility] | | | + + + +--------+ + + + + | Result panel 41 | + + + + + +-------+ + + | | 2022-12-01 | [facility] | 0.2 | (missing) | (missing) | | (unavailable | 09:15:08 [facility] | | | + + + +-------+ + + + + | Result panel 42 | + + + + + +------+ + + | | 2022-12-01 | [facility] | 15 | (missing) | (missing) | | (unavailable | 09:15:08 [facility] | | | + + + +------+ + + + + | Result panel 43 | + + + + + +------+ + + | | 2022-12-01 | [facility] | 29 | (missing) | (missing) | | (unavailable | 09:15:08 [facility] | | | + + + +------+ + + + + | Result panel 44 | + + + + + +-------+ + + | | 2022-12-01 | [facility] | 137 | (missing) | (missing) | | (unavailable | 09:15:08 [facility] | | | + + + +-------+ + + + + | Result panel 45 | + + + + + + + + + | | 2022-12-01 | [facility] | NEGATIVE | (missing) | (missing) | | (unavailable | 09:15:08 [facility] | | | + + + + + + + + + | Result panel 46 | + + + + + + + + + | | 2022-12-01 | [facility] | NEGATIVE | (missing) | (missing) | | (unavailable | 09:15:08 [facility] | | | + + + + + + + + + | Result panel 47 | + + + + + + + + + | | 2022-12-01 | [facility] | NEGATIVE | (missing) | (missing) | | (unavailable | 09:15:08 [facility] | | | + + + + + + + + + | Result panel 48 | + + + + + + + + + | | 2022-12-01 | [facility] | NEGATIVE | (missing) | (missing) | | (unavailable | 09:15:08 [facility] | | | + + + + + + + + + | Result panel 49 | + + + + + +--------+ + + | | 2022-12-01 | [facility] | 10.9 | (missing) | (missing) | | (unavailable | 09:15:08 [facility] | | | + + + +--------+ + + + + | Result panel 50 | + + + + + +--------+ + + | | 2022-12-01 | [facility] | 4.54 | (missing) | (missing) | | (unavailable | 09:15:08 [facility] | | | + + + +--------+ + + + + | Result panel 51 | + + + + + +--------+ + + | | 2022-12-01 | [facility] | 12.9 | (missing) | (missing) | | (unavailable | 09:15:08 [facility] | | | + + + +--------+ + + + + | Result panel 52 | + + + + + +--------+ + + | | 2022-12-01 | [facility] | 38.9 | (missing) | (missing) | | (unavailable | 09:15:08 [facility] | | | + + + +--------+ + + + + | Result panel 53 | + + + + + +--------+ + + | | 2022-12-01 | [facility] | 85.6 | (missing) | (missing) | | (unavailable | 09:15:08 [facility] | | | + + + +--------+ + + + + | Result panel 54 | + + + + + +--------+ + + | | 2022-12-01 | [facility] | 28.4 | (missing) | (missing) | | (unavailable | 09:15:08 [facility] | | | + + + +--------+ + + + + | Result panel 55 | + + + + + +--------+ + + | | 2022-12-01 | [facility] | 33.2 | (missing) | (missing) | | (unavailable | 09:15:08 [facility] | | | + + + +--------+ + + + + | Result panel 56 | + + + + + +--------+ + + | | 2022-12-01 | [facility] | 16.2 | (missing) | (missing) | | (unavailable | 09:15:08 [facility] | | | + + + +--------+ + + + + | Result panel 57 | + + + + + +-------+ + + | | 2022-12-01 | [facility] | 421 | (missing) | (missing) | | (unavailable | 09:15:08 [facility] | | | + + + +-------+ + + + + | Result panel 58 | + + + + + +--------+ + + | | 2022-12-01 | [facility] | 60.0 | (missing) | (missing) | | (unavailable | 09:15:08 [facility] | | | + + + +--------+ + + + + | Result panel 59 | + + + + + +--------+ + + | | 2022-12-01 | [facility] | 32.3 | (missing) | (missing) | | (unavailable | 09:15:08 [facility] | | | + + + +--------+ + + + + | Result panel 60 | + + + + + +-------+ + + | | 2022-12-01 | [facility] | 6.3 | (missing) | (missing) | | (unavailable | 09:15:08 [facility] | | | + + + +-------+ + + + + | Result panel 61 | + + + + + +-------+ + + | | 2022-12-01 | [facility] | 0.6 | (missing) | (missing) | | (unavailable | 09:15:08 [facility] | | | + + + +-------+ + + + + | Result panel 62 | + + + + + +-------+ + + | | 2022-12-01 | [facility] | 0.8 | (missing) | (missing) | | (unavailable | 09:15:08 [facility] | | | + + + +-------+ + + + + | Result panel 63 | + + + + + +-------+---------+ + | | 2022-12-01 | [facility] | 101 | mg/dL | (missing) | | (unavailable | 09:15:08 [facility] | | | | + + + +-------+---------+ + + + | Result panel 64 | + + + + + +------+---------+ + | | 2022-12-01 | [facility] | 13 | mg/dL | (missing) | | (unavailable | 09:15:08 [facility] | | | | + + + +------+---------+ + + + | Result panel 65 | + + + + + +--------+---------+ + | | 2022-12-01 | [facility] | 0.61 | mg/dL | (missing) | | (unavailable | 09:15:08 | [facility] | | | | + + + +--------+---------+ + + + | Result panel 66 | + + + + + +------+ + + | | 2022-12-01 | [facility] | 98 | (missing) | (missing) | | (unavailable | 09:15:08 [facility] | | | | + + + +------+ + + + + | Result panel 67 | + + + + + +---------+ + + | | 2022-12-01 | [facility] | 21.31 | (missing) | (missing) | | (unavailable | 09:15:08 [facility] | | | | + + + +---------+ + + + + | Result panel 68 | + + + + + +-------+ + + | | 2022-12-01 | [facility] | 137 | (missing) | (missing) | | (unavailable | 09:15:08 [facility] | | | | + + + +-------+ + + + + | Result panel 69 | + + + + + +-------+ + + | | 2022-12-01 | [facility] | 3.7 | (missing) | (missing) | | (unavailable | 09:15:08 [facility] | | | | + + + +-------+ + + + + | Result panel 70 | + + + + + +-------+ + + | | 2022-12-01 | [facility] | 100 | (missing) | (missing) | | (unavailable | 09:15:08 [facility] | | | | + + + +-------+ + + + + | Result panel 71 | + + + + + +------+ + + | | 2022-12-01 | [facility] | 29 | (missing) | (missing) | | (unavailable | 09:15:08 [facility] | | | | + + + +------+ + + + + | Result panel 72 | + + + + + +--------+ + + | | 2022-12-01 | [facility] | 11.7 | (missing) | (missing) | | (unavailable | 09:15:08 [facility] | | | | + + + +--------+ + + + + | Result panel 73 | + + + + + +-------+---------+ + | | 2022-12-01 | [facility] | 9.5 | mg/dL | (missing) | | (unavailable | 09:15:08 | [facility] | | | | + + + +-------+---------+ + + + | Result panel 74 | + + + + + +-------+ + + | | 2022-12-01 | [facility] | 7.8 | (missing) | (missing) | | (unavailable | 09:15:08 [facility] | | | | + + + +-------+ + + + + | Result panel 75 | + + + + + + + + + | | 2022-12-01 | [facility] | YELLOW | (missing) | (missing) | | (unavailable | 14:37:08 [facility] | | | | + + + + + + + + + | Result panel 76 | + + + + + +---------+ + + | | 2022-12-01 | [facility] | CLEAR | (missing) | (missing) | | (unavailable | 14:37:08 [facility] | | | | + + + +---------+ + + + + | Result panel 77 | + + + + + + + + + | | 2022-12-01 | [facility] | NEGATIVE | (missing) | (missing) | | (unavailable | 14:37:08 [facility] | | | | + + + + + + + + + | Result panel 78 | + + + + + + + + + | | 2022-12-01 | [facility] | NEGATIVE | (missing) | (missing) | | (unavailable | 14:37:08 [facility] | | | | + + + + + + + + + | Result panel 79 | + + + + + + + + + | | 2022-12-01 | [facility] | NEGATIVE | (missing) | (missing) | | (unavailable | 14:37:08 [facility] | | | | + + + + + + + + + | Result panel 80 | + + + + + + + + + | | 2022-12-01 | [facility] | <=1.005 | (missing) | (missing) | | (unavailable | 14:37:08 [facility] | | | | + + + + + + + + + | Result panel 81 | + + + + + + + + + | | 2022-12-01 | [facility] | TRACE-I | (missing) | (missing) | | (unavailable | 14:37:08 | [facility] | | | | + + + + + + + + + | Result panel 82 | + + + + + +-------+ + + | | 2022-12-01 | [facility] | 7.0 | (missing) | (missing) | | (unavailable | 14:37:08 | [facility] | | | | + + + +-------+ + + + + | Result panel 83 | + + + + + + + + + | | 2022-12-01 | [facility] | NEGATIVE | (missing) | (missing) | | (unavailable | 14:37:08 | [facility] | | | | + + + + + + + + + | Result panel 84 | + + + + + + + + + | | 2022-12-01 | [facility] | NORMAL | (missing) | (missing) | | (unavailable | 14:37:08 | [facility] | | | | + + + + + + + + + | Result panel 85 | + + + + + + + + + | | 2022-12-01 | [facility] | NEGATIVE | (missing) | (missing) | | (unavailable | 14:37:08 | [facility] | | | | + + + + + + + + + | Result panel 86 | + + + + + +---------+ + + | | 2022-12-01 | [facility] | SMALL | (missing) | (missing) | | (unavailable | 14:37:08 [facility] | | | | + + + +---------+ + + + + | Result panel 87 | + + + + + +-------+ + + | | 2022-12-01 | [facility] | 0-1 | (missing) | (missing) | | (unavailable | 14:37:08 [facility] | | | | + + + +-------+ + + + + | Result panel 88 | + + + + + +-------+ + + | | 2022-12-01 | [facility] | 4-6 | (missing) | (missing) | | (unavailable | 14:37:08 [facility] | | | + + + +-------+ + + + + | Result panel 89 | + + + + + +-----+ + + | | 2022-12-01 | [facility] | 0 | (missing) | (missing) | | (unavailable | 14:37:08 [facility] | | | + + + +-----+ + + + + | Result panel 90 | + + + + + +------+ + + | | 2022-12-01 | [facility] | 1+ | (missing) | (missing) | | (unavailable | 14:37:08 [facility] | | | + + + +------+ + + + + | Result panel 91 | + + + + + +-------+ + + | | 2022-12-01 | [facility] | Yes | (missing) | (missing) | | (unavailable | 14:37:08 [facility] | | | + + + +-------+ + + + + | Result panel 92 | + + + + + +--------+ + + | | 2022-12-01 | [facility] | CATH | (missing) | (missing) | | (unavailable | 14:37:08 [facility] | | | + + + +--------+ + + + + | Result panel 93 | + + + + + +------+---------+ + | | 2023-05-28 | [facility] | 16 | mg/dL | (missing) | | (unavailable | 09:10:07 | [facility] | | | + + + +------+---------+ + + + | Result panel 94 | + + + + + +--------+---------+ + | | 2023-05-28 | [facility] | 0.69 | mg/dL | (missing) | | (unavailable | 09:10:07 [facility] | | | + + + +--------+---------+ + + + | Result panel 95 | + + + + + +------+ + + | | 2023-05-28 | [facility] | 94 | (missing) | (missing) | | (unavailable | 09:10:07 [facility] | | | + + + +------+ + + + + | Result panel 96 | + + + + + +---------+ + + | | 2023-05-28 | [facility] | 23.18 | (missing) | (missing) | | (unavailable | 09:10:07 [facility] | | | + + + +---------+ + + + + | Result panel 97 | + + + + + +--------+ + + | | 2023-06-15 | [facility] | 27.2 | (missing) | (missing) | | (unavailable | 14:33:07 [facility] | | | + + + +--------+ + + + + | Result panel 98 | + + + + + +--------+ + + | | 2023-06-15 | [facility] | 31.7 | (missing) | (missing) | | (unavailable | 14:33:07 [facility] | | | + + + +--------+ + + + + | Result panel 99 | + + + + + +--------+ + + | | 2023-06-15 | [facility] | 15.6 | (missing) | (missing) | | (unavailable | 14:33:07 [facility] | | | + + + +--------+ + + + + | Result panel 100 | + + + + + +-------+ + + | | 2023-06-15 | [facility] | 384 | (missing) | (missing) | | (unavailable | 14:33:07 [facility] | | | + + + +-------+ + + + + | Result panel 101 | + + + + + +--------+ + + | | 2023-06-15 | [facility] | 67.0 | (missing) | (missing) | | (unavailable | 14:33:07 [facility] | | | + + + +--------+ + + + + | Result panel 102 | + + + + + +--------+ + + | | 2023-06-15 | [facility] | 26.2 | (missing) | (missing) | | (unavailable | 14:33:07 [facility] | | | + + + +--------+ + + + + | Result panel 103 | + + + + + +-------+ + + | | 2023-06-15 | [facility] | 5.6 | (missing) | (missing) | | (unavailable | 14:33:07 [facility] | | | + + + +-------+ + + + + | Result panel 104 | + + + + + +-------+ + + | | 2023-06-15 | [facility] | 0.6 | (missing) | (missing) | | (unavailable | 14:33:07 [facility] | | | + + + +-------+ + + + + | Result panel 105 | + + + + + +-------+ + + | | 2023-06-15 | [facility] | 0.6 | (missing) | (missing) | | (unavailable | 14:33:07 [facility] | | | + + + +-------+ + + + + | Result panel 106 | + + + + + +-------+ + + | | 2023-06-15 | [facility] | 9.7 | (missing) | (missing) | | (unavailable | 14:33:07 [facility] | | | + + + +-------+ + + + + | Result panel 107 | + + + + + +--------+ + + | | 2023-06-15 | [facility] | 4.58 | (missing) | (missing) | | (unavailable | 14:33:07 [facility] | | | + + + +--------+ + + + + | Result panel 108 | + + + + + +--------+ + + | | 2023-06-15 | [facility] | 12.5 | (missing) | (missing) | | (unavailable | 14:33:07 [facility] | | | + + + +--------+ + + + + | Result panel 109 | + + + + + +--------+ + + | | 2023-06-15 | [facility] | 39.3 | (missing) | (missing) | | (unavailable | 14:33:07 [facility] | | | + + + +--------+ + + + + | Result panel 110 | + + + + + +--------+ + + | | 2023-06-15 | [facility] | 85.9 | (missing) | (missing) | | (unavailable | 14:33:07 [facility] | | | + + + +--------+ + + Social History No information. Vital Signs + + + +---------+ | date | measurement | value | units | + + + +---------+ | 2022-02-06 00:00 | BMI | 22.5 | kg/m2 | + + + +---------+ | 2022-02-06 00:00 | BP_diastolic | 62 | mmHg | + + + +---------+ | 2022-02-06 00:00 | BP_systolic | 123 | mmHg | + + + +---------+ | 2022-02-06 00:00 | heart_rate | 80 | /min | + + + +---------+ | 2022-02-06 00:00 | height_metric | 157.48 | cm | + + + +---------+ | 2022-02-06 00:00 | height_standard | 62 | in | + + + +---------+ | 2022-02-06 00:00 | o2_saturation | 97 | % | + + + +---------+ | 2022-02-06 00:00 | respiration_rate | 16 | /min | + + + +---------+ | 2022-02-06 00:00 | temperature_metric | 36.78 | C | | | | | | + + + +---------+ | 2022-02-06 00:00 | | 98.2 | F | | | temperature_standar | | | | | d | | | + + + +---------+ | 2022-02-06 00:00 | weight_metric | 55.7 | kg | + + + +---------+ | 2022-02-06 00:00 | weight_standard | 122.8 | lb | + + + +---------+ | 2022-05-02 00:00 | BMI | 22.5 | kg/m2 | + + + +---------+ | 2022-05-02 00:00 | BP_diastolic | 60 | mmHg | + + + +---------+ | 2022-05-02 00:00 | BP_systolic | 128 | mmHg | + + + +---------+ | 2022-05-02 00:00 | heart_rate | 72 | /min | + + + +---------+ | 2022-05-02 00:00 | height_metric | 157.48 | cm | + + + +---------+ | 2022-05-02 00:00 | height_standard | 62 | in | + + + +---------+ | 2022-05-02 00:00 | o2_saturation | 98 | % | + + + +---------+ | 2022-05-02 00:00 | respiration_rate | 18 | /min | + + + +---------+ | 2022-05-02 00:00 | temperature_metric | 36.72 | C | | | | | | + + + +---------+ | 2022-05-02 00:00 | | 98.1 | F | | | temperature_standar | | | | | d | | | + + + +---------+ | 2022-05-02 00:00 | weight_metric | 55.68 | kg | + + + +---------+ | 2022-05-02 00:00 | weight_standard | 122.75 | lb | + + + +---------+ | 2022-05-13 00:00 | BMI | 21.6 | kg/m2 | + + + +---------+ | 2022-05-13 00:00 | height_metric | 157.48 | cm | + + + +---------+ | 2022-05-13 00:00 | height_standard | 62 | in | + + + +---------+ | 2022-05-13 00:00 | weight_metric | 53.63 | kg | + + + +---------+ | 2022-05-13 00:00 | weight_standard | 118.23 | lb | + + + +---------+ | 2022-05-15 00:00 | BP_diastolic | 69 | mmHg | + + + +---------+ | 2022-05-15 00:00 | BP_systolic | 156 | mmHg | + + + +---------+ | 2022-05-15 00:00 | heart_rate | 68 | /min | + + + +---------+ | 2022-05-15 00:00 | o2_saturation | 99 | % | + + + +---------+ | 2022-05-15 00:00 | respiration_rate | 16 | /min | + + + +---------+ | 2022-05-15 00:00 | temperature_metric | 36.28 | C | | | | | | + + + +---------+ | 2022-05-15 00:00 | | 97.3 | F | | | temperature_standar | | | | | d | | | + + + +---------+ | 2022-07-18 00:00 | BMI | 21.7 | kg/m2 | + + + +---------+ | 2022-07-18 00:00 | BP_diastolic | 82 | mmHg | + + + +---------+ | 2022-07-18 00:00 | BP_systolic | 135 | mmHg | + + + +---------+ | 2022-07-18 00:00 | heart_rate | 70 | /min | + + + +---------+ | 2022-07-18 00:00 | height_metric | 157.48 | cm | + + + +---------+ | 2022-07-18 00:00 | height_standard | 62 | in | + + + +---------+ | 2022-07-18 00:00 | o2_saturation | 96 | % | + + + +---------+ | 2022-07-18 00:00 | respiration_rate | 16 | /min | + + + +---------+ | 2022-07-18 00:00 | temperature_metric | 36.5 | C | | | | | | + + + +---------+ | 2022-07-18 00:00 | | 97.7 | F | | | temperature_standar | | | | | d | | | + + + +---------+ | 2022-07-18 00:00 | weight_metric | 53.86 | kg | + + + +---------+ | 2022-07-18 00:00 | weight_standard | 118.74 | lb | + + + +---------+ | 2022-07-18 00:00 | weight_standard | 118.75 | lb | + + + +---------+ | 2022-12-01 00:00 | BMI | 21.7 | kg/m2 | + + + +---------+ | 2022-12-01 00:00 | BP_diastolic | 75 | mmHg | + + + +---------+ | 2022-12-01 00:00 | BP_systolic | 138 | mmHg | + + + +---------+ | 2022-12-01 00:00 | heart_rate | 67 | /min | + + + +---------+ | 2022-12-01 00:00 | height_metric | 157.48 | cm | + + + +---------+ | 2022-12-01 00:00 | height_standard | 62 | in | + + + +---------+ | 2022-12-01 00:00 | o2_saturation | 97 | % | + + + +---------+ | 2022-12-01 00:00 | respiration_rate | 15 | /min | + + + +---------+ | 2022-12-01 00:00 | temperature_metric | 36.61 | C | | | | | | + + + +---------+ | 2022-12-01 00:00 | | 97.9 | F | | | temperature_standar | | | | | d | | | + + + +---------+ | 2022-12-01 00:00 | weight_metric | 53.86 | kg | + + + +---------+ | 2022-12-01 00:00 | weight_standard | 118.74 | lb | + + + +---------+ | 2022-12-01 00:00 | weight_standard | 118.75 | lb | + + + +---------+ | 2023-05-13 00:00 | BMI | 21.5 | kg/m2 | + + + +---------+ | 2023-05-13 00:00 | BP_diastolic | 79 | mmHg | + + + +---------+ | 2023-05-13 00:00 | BP_systolic | 147 | mmHg | + + + +---------+ | 2023-05-13 00:00 | heart_rate | 88 | /min | + + + +---------+ | 2023-05-13 00:00 | height_metric | 157.48 | cm | + + + +---------+ | 2023-05-13 00:00 | height_standard | 62 | in | + + + +---------+ | 2023-05-13 00:00 | o2_saturation | 99 | % | + + + +---------+ | 2023-05-13 00:00 | respiration_rate | 16 | /min | + + + +---------+ | 2023-05-13 00:00 | temperature_metric | 36.61 | C | | | | | | + + + +---------+ | 2023-05-13 00:00 | | 97.9 | F | | | temperature_standar | | | | | d | | | + + + +---------+ | 2023-05-13 00:00 | weight_metric | 53.41 | kg | + + + +---------+ | 2023-05-13 00:00 | weight_standard | 117.75 | lb | + + + +---------+ | 2023-05-17 00:00 | BMI | 22.2 | kg/m2 | + + + +---------+ | 2023-05-17 00:00 | BP_diastolic | 71 | mmHg | + + + +---------+ | 2023-05-17 00:00 | BP_systolic | 148 | mmHg | + + + +---------+ | 2023-05-17 00:00 | heart_rate | 70 | /min | + + + +---------+ | 2023-05-17 00:00 | height_metric | 157.48 | cm | + + + +---------+ | 2023-05-17 00:00 | height_standard | 62 | in | + + + +---------+ | 2023-05-17 00:00 | o2_saturation | 100 | % | + + + +---------+ | 2023-05-17 00:00 | respiration_rate | 16 | /min | + + + +---------+ | 2023-05-17 00:00 | temperature_metric | 36.44 | C | | | | | | + + + +---------+ | 2023-05-17 00:00 | | 97.6 | F | | | temperature_standar | | | | | d | | | + + + +---------+ | 2023-05-17 00:00 | weight_metric | 55 | kg | + + + +---------+ | 2023-05-17 00:00 | weight_standard | 121.25 | lb | + + + +---------+ | 2023-05-17 00:00 | weight_standard | 121.26 | lb | + + + +---------+ | 2023-06-15 00:00 | BMI | 21.6 | kg/m2 | + + + +---------+ | 2023-06-15 00:00 | BP_diastolic | 73 | mmHg | + + + +---------+ | 2023-06-15 00:00 | BP_systolic | 162 | mmHg | + + + +---------+ | 2023-06-15 00:00 | heart_rate | 69 | /min | + + + +---------+ | 2023-06-15 00:00 | height_metric | 157.48 | cm | + + + +---------+ | 2023-06-15 00:00 | height_standard | 62 | in | + + + +---------+ | 2023-06-15 00:00 | o2_saturation | 100 | % | + + + +---------+ | 2023-06-15 00:00 | respiration_rate | 16 | /min | + + + +---------+ | 2023-06-15 00:00 | temperature_metric | 36.17 | C | | | | | | + + + +---------+ | 2023-06-15 00:00 | | 97.1 | F | | | temperature_standar | | | | | d | | | + + + +---------+ | 2023-06-15 00:00 | weight_metric | 53.52 | kg | + + + +---------+ | 2023-06-15 00:00 | weight_standard | 117.99 | lb | + + + +---------+ | 2023-06-15 00:00 | weight_standard | 118 | lb | + + + +---------+"
--- OUTSIDE RECORDS SUMMARY | ~2023-06-16 | XMS | Continuity of Care Document ---
Demographics + + + | Address | [address] | | | [place] [address] | + + + | Preferred Language | Unknown | + + + | Marital Status | | + + + | Yazidi Affiliation | Unknown | + + + | Race | White | + + + | Ethnic Group | Not or | + + + Author + + + | Author | [facility] | + + + | Organization | [facility] | + + + | Address | [address] | | | [place] [address] | + + + | Phone | | + + + Care Team Providers + + + + | Care Spouter Name | Role | Phone | + [...] 2022-05-02 00:00 | Td (Adult) Preservative | [facility] | | | Free | | + + + + | 2022-05-02 00:00 | Td (Adult) Preservative | [facility] | | | Free | | + + + + | 2022-05-02 00:00 | Td (Adult) Preservative | [facility] | | | Free | | + + + + Medications + + + + | date | description | facility | + + + + | 2022-07-22 00:00 | CETIRIZINE HCL | [facility] | + + + + | 2022-12-01 00:00 | CETIRIZINE HCL | [facility] | + + + + | 2023-05-13 00:00 | CETIRIZINE HCL | [facility] | + + + + | 2023-05-17 00:00 | CETIRIZINE HCL | [facility] | + + + + | 2023-06-15 00:00 | CETIRIZINE HCL | [facility] | + + + + | 2022-07-22 00:00 | PSEUDOEPHEDRINE HCL | [facility] | + + + + | 2022-12-01 00:00 | PSEUDOEPHEDRINE HCL | [facility] | + + + + | 2023-05-13 00:00 | PSEUDOEPHEDRINE HCL | [facility] | + + + + | 2023-05-17 00:00 | PSEUDOEPHEDRINE HCL | [facility] | + + + + | 2023-06-15 00:00 | PSEUDOEPHEDRINE HCL | [facility] | + + + + | 2022-07-22 00:00 | GABAPENTIN | [facility] | + + + + | 2022-12-01 00:00 | GABAPENTIN | [facility] | + + + + | 2023-05-13 00:00 | GABAPENTIN | [facility] | + + + + | 2023-05-17 00:00 | GABAPENTIN | [facility] | + + + + | 2023-06-15 00:00 | GABAPENTIN | [facility] | + + + + | 2021-12-10 00:00 | NAPROXEN | [facility] | + + + + | 2021-12-10 00:00 | NAPROXEN | [facility] | + + + + | 2021-12-10 00:00 | NAPROXEN | [facility] | + + + + | 2022-07-22 00:00 | METHYLPHENIDATE HCL | [facility] | + + + + | 2022-12-01 00:00 | METHYLPHENIDATE HCL | [facility] | + + + + | 2023-05-13 00:00 | METHYLPHENIDATE HCL | [facility] | + + + + | 2023-05-17 00:00 | METHYLPHENIDATE HCL | [facility] | + + + + | 2023-06-15 00:00 | METHYLPHENIDATE HCL | [facility] | + + + + | 2022-07-22 00:00 | DIVALPROEX SODIUM | [facility] | + + + + | 2022-12-01 00:00 | DIVALPROEX SODIUM | [facility] | + + + + | 2023-05-13 00:00 | DIVALPROEX SODIUM | [facility] | + + + + | 2023-05-17 00:00 | DIVALPROEX SODIUM | [facility] | + + + + | 2023-06-15 00:00 | DIVALPROEX SODIUM | [facility] | + + + + | 2022-07-22 00:00 | DOCUSATE SODIUM | [facility] | + + + + | 2022-12-01 00:00 | DOCUSATE SODIUM | [facility] | + + + + | 2023-05-13 00:00 | DOCUSATE SODIUM | [facility] | + + + + | 2023-05-17 00:00 | DOCUSATE SODIUM | [facility] | + + + + | 2023-06-15 00:00 | DOCUSATE SODIUM | [facility] | + + + + | 2022-07-22 00:00 | LACTOBACILLUS ACIDOPHILUS | [facility] | + + + + | 2022-12-01 00:00 | LACTOBACILLUS ACIDOPHILUS | [facility] | + + + + | 2023-05-13 00:00 | LACTOBACILLUS ACIDOPHILUS | [facility] | + + + + | 2023-05-17 00:00 | LACTOBACILLUS ACIDOPHILUS | [facility] | + + + + | 2023-06-15 00:00 | LACTOBACILLUS ACIDOPHILUS | [facility] | + + + + | 2022-07-22 00:00 | SIMVASTATIN | [facility] | + + + + | 2022-12-01 00:00 | SIMVASTATIN | [facility] | + + + + | 2023-05-13 00:00 | SIMVASTATIN | [facility] | + + + + | 2023-05-17 00:00 | SIMVASTATIN | [facility] | + + + + | 2023-06-15 00:00 | SIMVASTATIN | [facility] | + + + + | 2023-06-15 00:00 | DIAZEPAM | [facility] | + + + + | 2014-05-01 00:00 | METHOCARBAMOL | [facility] | + + + + | 2014-05-01 00:00 | METHOCARBAMOL | [facility] | + + + + | 2014-05-01 00:00 | METHOCARBAMOL | [facility] | + + + + | 2023-06-15 00:00 | NORTRIPTYLINE HCL | [facility] | + + + + | 2022-07-22 00:00 | ACETAMINOPHEN | [facility] | + + + + | 2022-12-01 00:00 | ACETAMINOPHEN | [facility] | + + + + | 2023-05-13 00:00 | ACETAMINOPHEN | [facility] | + + + + | 2023-05-17 00:00 | ACETAMINOPHEN | [facility] | + + + + | 2023-06-15 00:00 | ACETAMINOPHEN | [facility] | + + + + | 2022-07-22 00:00 | EVENING PRIMROSE OIL | [facility] | + + + + | 2022-12-01 00:00 | EVENING PRIMROSE OIL | [facility] | + + + + | 2023-05-13 00:00 | EVENING PRIMROSE OIL | [facility] | + + + + | 2023-05-17 00:00 | EVENING PRIMROSE OIL | [facility] | + + + + | 2023-06-15 00:00 | EVENING PRIMROSE OIL | [facility] | + + + + | 2022-07-22 00:00 | OMEPRAZOLE | [facility] | + + + + | 2022-12-01 00:00 | OMEPRAZOLE | [facility] | + + + + | 2023-05-13 00:00 | OMEPRAZOLE | [facility] | + + + + | 2023-05-17 00:00 | OMEPRAZOLE | [facility] | + + + + | 2023-06-15 00:00 | OMEPRAZOLE | [facility] | + + + + | 2022-07-22 00:00 | CLONAZEPAM | [facility] | + + + + | 2022-12-01 00:00 | CLONAZEPAM | [facility] | + + + + | 2023-05-13 00:00 | CLONAZEPAM | [facility] | + + + + | 2023-05-17 00:00 | CLONAZEPAM | [facility] | + + + + | 2023-06-15 00:00 | CLONAZEPAM | [facility] | + + + + | 2022-07-22 00:00 | PAROXETINE HCL | [facility] | + + + + | 2022-12-01 00:00 | PAROXETINE HCL | [facility] | + + + + | 2023-05-13 00:00 | PAROXETINE HCL | [facility] | + + + + | 2023-05-17 00:00 | PAROXETINE HCL | [facility] | + + + + | 2023-06-15 00:00 | PAROXETINE HCL | [facility] | + + + + | 2022-07-22 00:00 | MELATONIN | [facility] | + + + + | 2022-12-01 00:00 | MELATONIN | [facility] | + + + + | 2023-05-13 00:00 | MELATONIN | [facility] | + + + + | 2023-05-17 00:00 | MELATONIN | [facility] | + + + + | 2023-06-15 00:00 | MELATONIN | [facility] | + + + + | 2022-07-22 00:00 | UBIDECARENONE | [facility] | + + + + | 2022-12-01 00:00 | UBIDECARENONE | [facility] | + + + + | 2023-05-13 00:00 | UBIDECARENONE | [facility] | + + + + | 2023-05-17 00:00 | UBIDECARENONE | [facility] | + + + + | 2023-06-15 00:00 | UBIDECARENONE | [facility] | + + + + | 2022-07-22 00:00 | ATORVASTATIN | [facility] | + + + + | 2022-12-01 00:00 | ATORVASTATIN | [facility] | + + + + | 2023-05-13 00:00 | ATORVASTATIN | [facility] | + + + + | 2023-05-17 00:00 | ATORVASTATIN | [facility] | + + + + | 2023-06-15 00:00 | ATORVASTATIN | [facility] | + + + + | 2022-07-22 00:00 | DIGOXIN | [facility] | + + + + | 2022-12-01 00:00 | DIGOXIN | [facility] | + + + + | 2023-05-13 00:00 | DIGOXIN | [facility] | + + + + | 2023-05-17 00:00 | DIGOXIN | [facility] | + + + + | 2023-06-15 00:00 | DIGOXIN | [facility] | + + + + | 2022-07-22 00:00 | GABAPENTIN | [facility] | + + + + | 2022-12-01 00:00 | GABAPENTIN | [facility] | + + + + | 2023-05-13 00:00 | GABAPENTIN | [facility] | + + + + | 2023-05-17 00:00 | GABAPENTIN | [facility] | + + + + | 2023-06-15 00:00 | GABAPENTIN | [facility] | + + + + | 2022-07-22 00:00 | LORATADINE | [facility] | + + + + | 2022-12-01 00:00 | LORATADINE | [facility] | + + + + | 2023-05-13 00:00 | LORATADINE | [facility] | + + + + | 2023-05-17 00:00 | LORATADINE | [facility] | + + + + | 2023-06-15 00:00 | LORATADINE | [facility] | + + + + | 2022-07-22 00:00 | CLONAZEPAM | [facility] | + + + + | 2022-12-01 00:00 | CLONAZEPAM | [facility] | + + + + | 2023-05-13 00:00 | CLONAZEPAM | [facility] | + + + + | 2023-05-17 00:00 | CLONAZEPAM | [facility] | + + + + | 2023-06-15 00:00 | CLONAZEPAM | [facility] | + + + + | 2022-07-22 00:00 | TIZANIDINE HCL | [facility] | + + + + | 2022-12-01 00:00 | TIZANIDINE HCL | [facility] | + + + + | 2023-05-13 00:00 | TIZANIDINE HCL | [facility] | + + + + | 2023-05-17 00:00 | TIZANIDINE HCL | [facility] | + + + + | 2023-06-15 00:00 | TIZANIDINE HCL | [facility] | + + + + | 2022-07-22 00:00 | LATANOPROST | [facility] | + + + + | 2022-12-01 00:00 | LATANOPROST | [facility] | + + + + | 2023-05-13 00:00 | LATANOPROST | [facility] | + + + + | 2023-05-17 00:00 | LATANOPROST | [facility] | + + + + | 2023-06-15 00:00 | LATANOPROST | [facility] | + + + + | 2022-07-22 00:00 | NATALIZUMAB | [facility] | + + + + | 2022-12-01 00:00 | NATALIZUMAB | [facility] | + + + + | 2023-05-13 00:00 | NATALIZUMAB | [facility] | + + + + | 2023-05-17 00:00 | NATALIZUMAB | [facility] | + + + + | 2023-06-15 00:00 | NATALIZUMAB | [facility] | + + + + | 2022-07-22 00:00 | POTASSIUM CHLORIDE | [facility] | + + + + | 2022-12-01 00:00 | POTASSIUM CHLORIDE | [facility] | + + + + | 2023-05-13 00:00 | POTASSIUM CHLORIDE | [facility] | + + + + | 2023-05-17 00:00 | POTASSIUM CHLORIDE | [facility] | + + + + | 2023-06-15 00:00 | POTASSIUM CHLORIDE | [facility] | + + + + | 2022-07-22 00:00 | Cholecalciferol (Vitamin | [facility] | | | D3) | | + + + + | 2022-12-01 00:00 | Cholecalciferol (Vitamin | [facility] | | | D3) | | + + + + | 2023-05-13 00:00 | Cholecalciferol (Vitamin | [facility] | | | D3) | | + + + + | 2023-05-17 00:00 | Cholecalciferol (Vitamin | [facility] | | | D3) | | + + + + | 2023-06-15 00:00 | Cholecalciferol (Vitamin | [facility] | | | D3) | | + + + + | 2022-07-22 00:00 | FESOTERODINE FUMARATE | [facility] | + + + + | 2022-12-01 00:00 | FESOTERODINE FUMARATE | [facility] | + + + + | 2023-05-13 00:00 | FESOTERODINE FUMARATE | [facility] | + + + + | 2023-05-17 00:00 | FESOTERODINE FUMARATE | [facility] | + + + + | 2023-06-15 00:00 | FESOTERODINE FUMARATE | [facility] | + + + + | 2021-01-06 00:00 | AMOXICILLIN/POTASSIUM CLAV | [facility] | | | | | + + + + | 2021-01-06 00:00 | AMOXICILLIN/POTASSIUM CLAV | [facility] | | | | | + + + + | 2021-01-06 00:00 | AMOXICILLIN/POTASSIUM CLAV | [facility] | | | | | + + + + | 2022-07-22 00:00 | DILTIAZEM HCL | [facility] | + + + + | 2022-12-01 00:00 | DILTIAZEM HCL | [facility] | + + + + | 2023-05-13 00:00 | DILTIAZEM HCL | [facility] | + + + + | 2023-05-17 00:00 | DILTIAZEM HCL | [facility] | + + + + | 2023-06-15 00:00 | DILTIAZEM HCL | [facility] | + + + + | 2023-06-15 00:00 | | [facility] | | | SULFAMETHOXAZOLE/TRIMETHOPR | | | | IM DS | | + + + + | 2022-07-22 00:00 | AMITRIPTYLINE HCL | [facility] | + + + + | 2022-12-01 00:00 | AMITRIPTYLINE HCL | [facility] | + + + + | 2023-05-13 00:00 | AMITRIPTYLINE HCL | [facility] | + + + + | 2023-05-17 00:00 | AMITRIPTYLINE HCL | [facility] | + + + + | 2023-06-15 00:00 | AMITRIPTYLINE HCL | [facility] | + + + + | 2021-06-23 00:00 | HYDROCODONE | [facility] | | | BIT/ACETAMINOPHEN | | + + + + | 2021-06-23 00:00 | HYDROCODONE | [facility] | | | BIT/ACETAMINOPHEN | | + + + + | 2021-06-23 00:00 | HY[facility]OCODONE | [facility] | | | BIT/ACETAMINOPHEN | | + + + + | 2021-07-05 00:00 | HYDROCODONE | [facility] | | | BIT/ACETAMINOPHEN | | + + + + | 2021-07-05 00:00 | HYDROCODONE | [facility] | | | BIT/ACETAMINOPHEN | | + + + + | 2021-07-05 00:00 | HYDROCODONE | [facility] | | | BIT/ACETAMINOPHEN | | + + + + | 2022-07-18 00:00 | HYDROCODONE | [facility] | | | BIT/ACETAMINOPHEN | | + + + + | 2022-07-18 00:00 | HYDROCODONE | [facility] | | | BIT/ACETAMINOPHEN | | + + + + | 2022-07-18 00:00 | HYDROCODONE | [facility] | | | BIT/ACETAMINOPHEN | | + + + + | 2013-11-28 00:00 | HYDROCODONE | [facility] | | | BIT/ACETAMINOPHEN | | + + + + | 2013-11-28 00:00 | HYDROCODONE | [facility] | | | BIT/ACETAMINOPHEN | | + + + + | 2013-11-28 00:00 | HYDROCODONE | [facility] | | | BIT/ACETAMINOPHEN | | + + + + | 2022-07-22 00:00 | BUSPIRONE HCL | [facility] | + + + + | 2022-12-01 00:00 | BUSPIRONE HCL | [facility] | + + + + | 2023-05-13 00:00 | BUSPIRONE HCL | [facility] | + + + + | 2023-05-17 00:00 | BUSPIRONE HCL | [facility] | + + + + | 2023-06-15 00:00 | BUSPIRONE HCL | [facility] | + + + + | 2022-07-22 00:00 | POLYETHYLENE GLYCOL 3350 | [facility] | + + + + | 2022-12-01 00:00 | POLYETHYLENE GLYCOL 3350 | [facility] | + + + + | 2023-05-13 00:00 | POLYETHYLENE GLYCOL 3350 | [facility] | + + + + | 2023-05-17 00:00 | POLYETHYLENE GLYCOL 3350 | [facility] | + + + + | 2023-06-15 00:00 | POLYETHYLENE GLYCOL 3350 | [facility] | + + + + | 2022-07-22 00:00 | PROMETHAZINE/CODEINE | [facility] | + + + + | 2022-12-01 00:00 | PROMETHAZINE/CODEINE | [facility] | + + + + | 2023-05-13 00:00 | PROMETHAZINE/CODEINE | [facility] | + + + + | 2023-05-17 00:00 | PROMETHAZINE/CODEINE | [facility] | + + + + | 2023-06-15 00:00 | PROMETHAZINE/CODEINE | [facility] | + + + + | 2021-01-06 00:00 | ACETAMINOPHEN WITH CODEINE | [facility] | | | | | + + + + | 2021-01-06 00:00 | ACETAMINOPHEN WITH CODEINE | [facility] | | | | | + + + + | 2021-01-06 00:00 | ACETAMINOPHEN WITH CODEINE | [facility] | | | | | + + + + Problems + + + + | date | description | facility | + + + + | 2014-12-03 00:00 | Right shoulder pain | [facility] | + + + + | 2014-12-03 00:00 | Right shoulder pain | [facility] | + + + + | 2014-12-03 00:00 | Right shoulder pain | [facility] | + + + + | 2014-12-03 00:00 | Right hip pain | [facility] | + + + + | 2014-12-03 00:00 | Right hip pain | [facility] | + + + + | 2014-12-03 00:00 | Right hip pain | [facility] | + + + + | 2017-07-13 00:00 | Palpitations | [facility] | + + + + | 2017-07-13 00:00 | Palpitations | [facility] | + + + + | 2017-07-13 00:00 | Palpitations | [facility] | + + + + | 2017-07-13 00:00 | Chest pain | [facility] | + + + + | 2017-07-13 00:00 | Chest pain | [facility] | + + + + | 2017-07-13 00:00 | Chest pain | [facility] | + + + + | 2017-07-13 00:00 | Elevated digoxin level | [facility] | + + + + | 2017-07-13 00:00 | Elevated digoxin level | [facility] | + + + + | 2017-07-13 00:00 | Elevated digoxin level | [facility] | + + + + | 2018-10-15 00:00 | Contusion of head | [facility] | + + + + | 2018-10-15 00:00 | Contusion of head | [facility] | + + + + | 2018-10-15 00:00 | Contusion of head | [facility] | + + + + | 2018-10-15 00:00 | Contusion of right hip | [facility] | + + + + | 2018-10-15 00:00 | Contusion of right hip | [facility] | + + + + | 2018-10-15 00:00 | Contusion of right hip | [facility] | + + + + | 2021-06-23 00:00 | Fracture of rib of left | [facility] | | | side | | + + + + | 2021-06-23 00:00 | Fracture of rib of left | [facility] | | | side | | + + + + | 2021-06-23 00:00 | Fracture of rib of left | [facility] | | | side | | + + + + | 2021-06-23 00:00 | Fall | [facility] | + + + + | 2021-06-23 00:00 | Fall | [facility] | + + + + | 2021-06-23 00:00 | Fall | [facility] | + + + + | 2021-07-05 00:00 | Fracture of rib | [facility] | + + + + | 2021-07-05 00:00 | Fracture of rib | [facility] | + + + + | 2021-07-05 00:00 | Fracture of rib | [facility] | + + + + | 2021-12-10 00:00 | Sprain of left ankle | [facility] | + + + + | 2021-12-10 00:00 | Sprain of left ankle | [facility] | + + + + | 2021-12-10 00:00 | Sprain of left ankle | [facility] | + + + + | 2022-01-12 00:00 | Acute retention of urine | [facility] | + + + + | 2022-01-12 00:00 | Acute retention of urine | [facility] | + + + + | 2022-01-12 00:00 | Acute retention of urine | [facility] | + + + + | 2022-01-21 00:00 | Confusion | [facility] | + + + + | 2022-01-21 00:00 | Confusion | [facility] | + + + + | 2022-01-21 00:00 | Confusion | [facility] | + + + + | 2022-02-06 00:00 | Encounter for medical | [facility] | | | screening examination | | + + + + | 2022-02-06 00:00 | Encounter for medical | [facility] | | | screening examination | | + + + + | 2022-02-06 00:00 | Encounter for medical | [facility] | | | screening examination | | + + + + | 2022-05-02 00:00 | Laceration of right | [facility] | | | eyebrow | | + + + + | 2022-05-02 00:00 | Laceration of right | [facility] | | | eyebrow | | + + + + | 2022-05-02 00:00 | Laceration of right | [facility] | | | eyebrow | | + + + + | 2022-05-02 00:00 | Strain of neck muscle | [facility] | + + + + | 2022-05-02 00:00 | Strain of neck muscle | [facility] | + + + + | 2022-05-02 00:00 | Strain of neck muscle | [facility] | + + + + | 2022-05-02 00:00 | Contusion of right | [facility] | | | shoulder | | + + + + | 2022-05-02 00:00 | Contusion of right | [facility] | | | shoulder | | + + + + | 2022-05-02 00:00 | Contusion of right | 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 | + + + + | 2022-12-01 00:00 | Multiple sclerosis | [facility] | + + + + | 2022-12-01 00:00 | Multiple sclerosis | [facility] | + + + + | 2022-12-01 00:00 | Weakness | [facility] | + + + + | 2022-12-01 00:00 | Weakness | [facility] | + + + + | 2022-12-01 00:00 | Weakness | [facility] | + + + + | 2022-12-01 [...] + + | 2022-12-01 09:00 | OTHER ENGINE EMISSION TECHNICIAN (CURRENT) | [facility] | | | DRUG [...] 00:00 | Muscle spasms of neck | [facility] | + + + + | 2023-05-13 00:00 | Muscle spasms of neck | [facility] | + + + + | 2023-05-13 [...] + + | 2023-05-13 15:14 | OTHER NURSING HOME (CURRENT) | [facility] | | | DRUG [...] 2023-05-17 00:00 | Acute back pain | 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 | + + + + | 2023-06-15 [...] 2022-05-15 00:00 | EXCISION OF STOMACH, | [facility] | | | PYLORUS, ENDO, DIAGN | | + + + + | 2022-05-15 00:00 | EXCISION OF TRANSVERSE | [facility] | | | COLON, ENDO, DIAGN | | + + + + | 2022-05-15 00:00 | EXCISION OF RECTUM, ENDO, | [facility] | | | DIAGN | | + + + + | 2022-05-15 00:00 | EGD BIOPSY SINGLE/MULTIPLE | [facility] | | | | | + + + + | 2022-05-15 00:00 | COLONOSCOPY W/LESION | [facility] | | | REMOVAL | | + + + + | 2022-05-15 00:00 | COLONOSCOPY W/LESION | [facility] | | | REMOVAL | | + [...]
[~2023-06-16 19:12] MED LIST changes: +BACTRIM DS TAB1 EACH PO; +DIAZEPAM5 MG PO; +NORTRIPTYLINE H10 MG PO
[2023-06-16] MEDS ORDERED: SULFAMETHOXAZO1 EAC1 PO (19:23)
[2023-06-16 21:04] VITALS: BP 151/87
--- NOTE | 2023-06-18 00:08 | EKG ---
[facility] [address] [place], [place] [address] Signed Normal sinus rhythm Inferior infarct , age undetermined Cannot rule out Anterior infarct (cited on or before 16-JUN-2023) Abnormal ECG When compared with ECG of 13-MAY-2023 15:28, No significant change was found Confirmed by Genesis Mena MD () on 06/18/2023 12:08:21 AM Electronically Signed By: GENESIS MENA MD 06/18/23 0008 PATIENT NAME: KEEGAN CURRY Electrocardiogram DATE OF : 55 PHYSICIAN: GENESIS MENA MD REPORT #: [id number] REPORT IS CONFIDENTIAL AND NOT TO BE RELEASED WITHOUT AUTHORIZATION
== END 2023-06-16 21:04 | disposition home or self-care (01) ==
LOC: ED 19:12
DX: R07.89 Other chest pain (principal); G35 Multiple sclerosis; Z79.899 Other long term (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; Z88.1 Allergy status to other antibiotic agents; Z88.5 Allergy status to narcotic agent
CPT/HCPCS: 36415; 71045; 80053; 83735; 84484; 85025; 85379; 93005; 93010; 96374; 99285 25; A9270; J1885

== ENCOUNTER 2023-11-19 19:09 | Emergency (ER) | payer MEDICARE, OTHER ==
[~2023-11-19] VITALS: Ht 157.5 cm; Wt 56.6 kg
[~2023-11-19 19:09] MED LIST changes: +SULFAMETHOXAZO1 EAC1 PO
[2023-11-19 19:36] LABS: BASOPHILS 0.8 % (0-2); HEMATOCRIT 32.8 % (35.0-50.0); HEMOGLOBIN 10.9 g/dL (12.0-18.0); LYMPHOCYTES 35.1 % (24-44); MCH 28.2 (27-36); MCHC 33.1 g/dl (30-36); MCV 85.2 fl (81-99); MONOCYTES 6.9 % (0-12); NEUTROPHILS 56.2 % (39-80); PLATELET COUNT 431 K/uL (140-440); RBC 3.85 M/ul (4.3-5.7); RDW 15.2 (10.5-15.0)
[2023-11-19 19:53] LABS: ALBUMIN 3.6 g/dL (3.4-5.0); ALCOHOL, MEDICAL <3 ng/dL (<3); ALKALINE PHOSPHATASE 103 U/L (46-116); ALT (SGPT) 23 U/L (14-59); ANION GAP 12.9 (7-21); AST (SGOT) 14 U/L (15-37); BILIRUBIN, TOTAL 0.1 ng/dL (0.2-1.0); BUN/CREATININE RATIO 24.71 (6.0-28.6); CARBON DIOXIDE 26 mmol/L (21-32); CHLORIDE 102 mmol/L (98-107); CREATINE KINASE 109 U/L (26-192); CREATININE, SERUM 0.89 mg/dL (0.55-1.02); GLOMERULAR FILTRATION RATE,EST 71 mL/min (>60); POTASSIUM 3.9 mmol/L (3.5-5.1); PROTEIN, TOTAL 7.6 g/dL (6.4-8.2); UREA NITROGEN 22 mg/dL (7-18)
[2023-11-19 20:39] LABS: BILIRUBIN, URINE NEGATIVE (negative); BLOOD/HGB, URINE NEGATIVE (Negative); KETONE, URINE NEGATIVE (Negative); LEUK ESTERASE, URINE NEGATIVE (negative); NITRITE, URINE NEGATIVE (negative); PH, URINE 5.5 (5-7)
[2023-11-19 20:52] LABS: AMPHETAMINES, URINE POSITIVE (NEGATIVE); BARBITURATES, URINE NEGATIVE (NEGATIVE); BENZODIAZEPINE, URINE NEGATIVE (NEGATIVE); BUPRENORPHINE, URINE NEGATIVE (NEGATIVE); CANNABINOID, URINE NEGATIVE (NEGATIVE); COCAINE, URINE NEGATIVE (NEGATIVE); ECSTASY, URINE NEGATIVE (NEGATIVE); FENTANYL, URINE POSITIVE (NEGATIVE); METHADONE, URINE NEGATIVE (NEGATIVE); OPIATES, URINE NEGATIVE (NEGATIVE); OXYCODONE, URINE NEGATIVE (NEGATIVE); PHENCYCLIDINE, URINE NEGATIVE (NEGATIVE)
[2023-11-19 21:05] VITALS: BP 138/72
--- NOTE | 2023-11-21 05:55 | EKG ---
[facility] [address] [facility] [place], [place] [address] Signed Normal sinus rhythm Normal ECG When compared with ECG of 16-JUN-2023 19:17, No significant change was found Confirmed by MAGUI WILLIS MD ([id number]) on 11/21/2023 5:55:21 AM Electronically Signed By: MAGUI WILLIS 11/21/23 0555 PATIENT NAME: KEEGAN CURRY Electrocardiogram DATE OF : 55 PHYSICIAN: MAGUI WILLIS REPORT #: [id number] REPORT IS CONFIDENTIAL AND NOT TO BE RELEASED WITHOUT AUTHORIZATION
== END 2023-11-19 21:05 | disposition home or self-care (01) ==
LOC: ED 19:09
PROVIDERS: Internal Medicine
DX: S00.03XA Contusion of scalp, initial encounter (principal); G35 Multiple sclerosis; W05.0XXA Fall from non-moving wheelchair, initial encounter; Z96.641 Presence of right artificial hip joint; Z88.5 Allergy status to narcotic agent; Z88.8 Allergy status to other drugs, medicaments and biological substances; Z79.899 Other long term (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; Z91.81 History of falling
CPT/HCPCS: 36415; 70450; 71045; 72125; 80053; 80307; 81003; 82553; 85025; 93005; 93010; 99284-25; G0480

== ENCOUNTER 2024-04-28 17:22 | Emergency (ER) | payer MEDICARE, OTHER ==
[~2024-04-28] VITALS: Ht 157.5 cm; Wt 59.0 kg
[2024-04-28] MEDS ORDERED: KETOROLAC TROMETHAMINE 15 MG/ML VIAL IV ONE (17:45)
[2024-04-28 17:52] LABS: BASOPHILS 0.9 % (0-2); EOSINOPHILS 0.5 % (0-6); HEMOGLOBIN 11.1 g/dL (12.0-18.0); LYMPHOCYTES 22.5 % (24-44); MCH 26.4 (27-36); MCHC 32.6 g/dl (30-36); MCV 81.2 fl (81-99); MONOCYTES 4.5 % (0-12); NEUTROPHILS 71.6 % (39-80); PLATELET COUNT 460 K/uL (140-440); RBC 4.18 M/ul (4.3-5.7)
[2024-04-28 18:07] LABS: ALBUMIN 3.2 g/dL (3.4-5.0); ALBUMIN/GLOBULIN RATIO 0.74 (1.1-2.4); ANION GAP 14.7 (7-21); BILIRUBIN, TOTAL 0.2 ng/dL (0.2-1.0); BUN/CREATININE RATIO 22.5 (6.0-28.6); CALCIUM 8.9 mg/dL (8.5-10.1); CREATININE, SERUM 0.8 mg/dL (0.55-1.02); POTASSIUM 3.7 mmol/L (3.5-5.1); PROTEIN, TOTAL 7.5 g/dL (6.4-8.2)
[2024-04-28] MEDS ORDERED: CEFTRIAXONE/SODIUM CHLORIDE 1 GM/100 ML PIGGYBACK IV ONE (18:15)
[2024-04-28] MEDS ORDERED: CEPHALEXIN500 M1 PO (18:19)
[2024-04-28 19:25] VITALS: BP 172/84
== END 2024-04-28 19:25 | disposition home or self-care (01) ==
LOC: ED 17:22
PROVIDERS: Internal Medicine
DX: L03.116 Cellulitis of left lower limb (principal); G35 Multiple sclerosis; Z88.1 Allergy status to other antibiotic agents; Z88.5 Allergy status to narcotic agent; Z88.8 Allergy status to other drugs, medicaments and biological substances; Z79.899 Other long term (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; M25.572 Pain in left ankle and joints of left foot; R60.0 Localized edema
CPT/HCPCS: 36415; 73630; 80053; 84550; 85025; 93971; 96365; 96375; 99284-25; J0696; J1885

== ENCOUNTER 2024-10-23 05:55 | Day surgery (SDC) | payer MEDICARE, OTHER ==
[2024-10-19 14:23] VITALS: BP 140/79
[~2024-10-23] VITALS: Ht 157.5 cm; Wt 59.1 kg
[~2024-10-23 05:55] MED LIST changes: +AMANTADINE100 MG PO; +ATORVASTATIN CA40 MG PO; +CEPHALEXIN500 M1 PO; +CEPHALEXIN500 MG PO; +CLARITIN10 MG PO; +DONEPEZIL HCL10 MG PO; +FLONASE ALLERG9.9 ML NAS; +LACTATED RINGER'S 1,000 ML IV SCH; +LASIX20 MG PO; +PAMELOR10 MG PO; +SPIRONOLACTONE25 MG PO; +ZOLEDRONIC5 MG/100 M IV
--- NOTE | 2024-10-23 06:08 | NUR ---
PT UNABLE TO PRODUCE URINE SAMPLE FOR CLEAN CATCH UA D/T INCONTINENCE. DR. PAL NOTIFIED. VERBAL ORDER RECEIVED TO ME UA. UPDATED ORDERS.
[2024-10-23 06:15] VITALS: BP 150/72
[2024-10-23] MEDS ORDERED: LIDOCAINE HCL 1% 5 ML SDV INJ ONE (07:00)
[2024-10-23] MEDS ORDERED: CEFAZOLIN SODIUM 2 GM/20 ML SYR IV SCH (07:00)
[2024-10-23] MEDS ORDERED: IBLOOD GLUCOSE TEST STRIP 1 EA TEST VI PRN ×2 (07:00→10:15)
[2024-10-23] MEDS ORDERED: HYDROCODONE/ACETA 5/325 TAB PO PRN (07:00)
[2024-10-23] MEDS ORDERED: MORPHINE SULFATE 4 MG/ML VIAL IV PRN (07:00)
[2024-10-23] MEDS ORDERED: ondansetron HCL 4 MG/2 ML VIAL IV PRN ×2 (07:00→10:15)
[2024-10-23] MEDS ORDERED: dexmedeTOMIDine HCl 200 MCG/2 ML VIAL ONE (07:30)
[2024-10-23] MEDS ORDERED: propofoL 200 MG/20 ML VIAL ONE ×4 (07:30→09:38)
[2024-10-23] MEDS ORDERED: ondansetron HCL 4 MG/2 ML VIAL ONE (07:30)
[2024-10-23] MEDS ORDERED: DEXAMETHASONE SOD PHOS 4 MG/ML VIAL ONE (07:30)
[2024-10-23] MEDS ORDERED: fentaNYL citrate 100 MCG/2 ML VIAL ONE (07:31)
[2024-10-23] MEDS ORDERED: KETAMINE in NS 50 MG/5 ML SYR ONE (07:38)
[2024-10-23] MEDS ORDERED: LABETALOL HCL 20 MG/4 ML VIAL ONE (09:21)
[2024-10-23] MEDS ORDERED: GLYCOPYRROLATE 1 MG/5 ML MDV ONE (09:33)
[2024-10-23] MEDS ORDERED: NALOXONE HCL 0.4 MG SYR IV PRN (10:15)
[2024-10-23] MEDS ORDERED: fentaNYL citrate 50 MCG/ML SDV IV PRN (10:15)
--- NOTE | 2024-10-23 10:57 | NUR ---
VERBAL ORDER RECEIVED FROM DR. PAL TO CANCEL PT CHEST CT WITH AND W/O CONTRAST D/T INSURANCE REQUIRING PA TO SCHEDULE. DR. PAL WILL SEND NEW ORDER FROM HER OFFICE AND IMAGING WILL CONTACT PT TO SCHEDULE ONCE PA IS RECEIVED FROM PTS INSURANCE. UPDATED ORDERS.
[2024-10-23 11:45] VITALS: BP 128/66
--- NOTE | 2024-10-23 12:12 | NUR ---
10/23/24 1212 RuizKarla walls 1045- PT ARRIVES TO THE PACU WITH A NATURAL AIRWAY AND ON 6L OF O2 VIA MASK. BREATHING IS EVEN AND UNLABORED. LR INFUSING IN R FOREARM. PT IS IN SEMIFOWLERS POSITION. ALL MONITORS PUT IN PLACE. PT IS REACTIVE TO VERBAL STIMULI BUT DIFFICULT TO UNDERSTAND AT THIS TIME. PT NODS HEAD NO TO NAUSEA AND YES TO PAIN AND POINTING TOWARD HER RIGHT HIP WHEN ASKED TO DO SO. 1053- O2 SATS CONTINUE TO BE IN THE HIGH 90S. O2 TURNED OFF AND REMOVED. PT REPORTS 5/10 PAIN AND CALLS THE PAIN "UNCOMFORTABLE". PT REPORTS DIFFICULTY BREATHING. PT HOB INCREASED. WHEN LISTENING TO THE LUNGS THEY ARE CLEAR THROUGHOUT AND BILATERALLY. PT REPORTS FEELING SHE NEEDS TO COUGH. 1057- O2 SATS BEGIN TO DECREASE TO THE HIGH 80S. PT IS PUT ON 4L OF O2 VIA NC. O2 SATS INCREASE TO MID 90S. PT IS ENCOURAGED TO COUGH AND DEEP BREATHE. 1101- HOB INCREASED PER PT REQUEST AND ICE CHIPS. PT TOLERATING WELL. PAIN IS REPORTED AT 5/10. PT EDUCATION ON PAIN MEDS GIVEN, PT AGREEING TO ADMINISTRATION OF PAIN MEDICATION. 1105- FENTANYL GIVEN, SEE EMAR. PT ENCOURAGED TO COUGH AND DEEP BREATHE. 1110-PT REPORTS PAIN IS BETTER AT 4/10 AND MORE TOLERABLE. 1119- O2 IS TURNED DOWN TO 2L VIA NC. SATURATIONS CONTINUE TO BE IN THE MID 90S. 1125- O2 TURNED OFF TO TRIAL ON ROOM AIR. PT O2 SATURATION DECREASES TO 89%. PT REMINDED TO COUGH AND DEEP BREATHE, O2 SATURATION INCREASE BEFORE DECREASING BACK TO 89%. 1126- PT REPORTS 4/10 PAIN THAT IS TOLERABLE. PT IS ABLE TO SAY THAT PAIN IS AT THE SURGICAL SITE, AND IS "UNCOMFORTABLE". 1131- PT O2 TURNED ON TO 2L VIA NC. PT O2 SATURATION GOES BACK TO THE MID 90S. 1145-PT BROUGHT BACK TO DS. BEDSIDE REPORT GIVEN TO MARCELO COLMENARES WITH BROTHER AT THE BEDSIDE. VSS. SURGICAL SITE IS ASSESSED WITH DAY SURGERY NURSE AND SITE IS CLEAN, DRY AND INTACT. NO QUESTIONS OR CONCERNS. CARE TURNED OVER AT THIS TIME.
--- NOTE | 2024-10-23 12:19 | NUR ---
1145-PT ARRIVED BACK TO ON 2L/NC WITH SATS OF 99-100% OBSERVED. REPORT RECEIVED FROM SUGAR REFINERY SUPERVISOR AND SURGICAL SITE WAS VISUALIZED. DRESSING APPEARS CDI TO R UPPER BUTTOCK/LOWER BACK AREA WHERE [employer] NSM DEVICE STAGE 1 DEVICE LEAD WAS PLACED. PT DENIES NAUSEA WHEN ASKED AND REPORTS PAIN IN SURGICAL SITE TO BE 3/10. PT REPORTS PAIN TO BE TOLERABLE. VS TAKEN. IV SITE ASSESSED, PATENT, AND INFUSING LR PER ORDERS. PTS BROTHER IN ROOM UPON PTS RETURN AND REMAINS AT BEDSIDE. PT PROVIDED WITH ICE CHIPS, PUDDING AND ICE WATER. BED IN LOW POSITION, WHEELS LOCKED, BILAT RAILS IN PLACE. CALL LIGHT WITHIN PT REACH. ALL QUESTIONS ANSWERED. PT REMAINS DROWSY, BUT ANSWERS QUESTIONS APPROPRIATELY. PT AAOX3 AND IS ABLE TO MAKE HER NEEDS KNOWN. 1150-O2 TIRATED DOWN TO 1L. PT MAINTAINING SATS OF 98% OR GREATER. 1203-PT REPORTS URGE TO VOID, BUT DOES NOT FEEL STRONG ENOUGH TO TRANSFER TO BS AT THIS TIME. PT OFFERED BEDPAN. ASSIST PT IN TURNING FOR PLACEMENT OF BEDPAN. PT ABLE TO VOID APPROX 50 ML OF PALE, CLR, YELLOW URINE. UG PLACED AFTER BEDPAN USE. 1208-O2 TITRATED TO RA. PT MAINTAINING SATS OF 92% OR GREATER ON RA.
--- NOTE | 2024-10-23 12:35 | NUR ---
1225-PT REPORTS URGE TO VOID. PT ASSISTED WITH USE OF BEDPAN. SKYLAR-CARE PROVIDED AND UG REPLACED. 1235-PT NOTED TO BE RESTING WITH EYES CLOSED, APPEARS TO HAVE FALLEN ASLEEP. SATS DECREASED TO 89% ON RA. PT AROUSES TO VERBAL STIMULATION AND IS INSTRUCTED TO DEEP BREATH AND COUGH. PT FOLLOWS COMMAND AND SATS IMPROVE TO 95-98% ON RA. OXIMETER LEFT IN PLACE TO CONT TO MONITOR. PTS BROTHER REMAINS AT HER SIDE. CALL LIGHT WITHIN REACH. BED INLOW POSITION, WHEELS LOCKED, BILAT RAILS UP FOR SAFETY. HEELS FLOATED D/T BOGGINESS NOTED. HEELS APPEAR RED, BUT REMAIN BLANCHABLE.
[2024-10-23] MEDS ORDERED: OXYCODONE HCL5 MG PO ×2 (12:41)
[2024-10-23] MEDS ORDERED: CEPHALEXIN500 M1 PO ×2 (12:42)
[2024-10-23 12:45] VITALS: BP 140/70
--- NOTE | 2024-10-23 12:50 | NUR ---
1245-INTO PTS ROOM FOR ROUTINE REASSESSMENT. VS TAKEN. SURGICAL SITE VISUALIZED. NO ACUTE CHANGES NOTED FROM PREVIOUS ASSESSMENT. IV SITE ASSESSED. BROTHER REMAINS IN ROOM AT PTS BEDSIDE. PT DENIES NAUSEA WHEN ASKED AND TOLERATE ORAL FOOD/FLUIDS. PT REPORTS NO INCREASES IN PAIN AND CONT TO RATE HER PAIN AT 3/10. PT REPORTS THIS PAIN TO BE TOLERABLE FOR HER AND DECLINES ANY PAIN MEDICATIONS. PT IS MORE AWAKE. CONTINUES TO ANSWER QUESTIONS APPROPRIATELY, AND IS ABLE TO MAKE HER NEEDS KNOWN. ALL QUESTIONS ANSWERED. BED IN LOW POSITION, WHEELS LOCKED, BILAT RAILS IN PLACE FOR SAFETY. CALL LIGHT WITHIN PT REACH. 1250-[employer] REP INTO PTS ROOM TO TURN ON SNM AND SETUP PTS SETTINGS. [employer] REP PROVIDED EDUCATION TO BOTH PT AND HER BROTHER ON REMOTE CONTROL AND PROVIDED EDUCATIONAL HANDOUTS.
[2024-10-23 13:45] VITALS: BP 138/68
--- NOTE | 2024-10-23 13:45 | NUR ---
1325-INTO PTS ROOM FOR DISCHARGE EDUCATION. PTS BROTHER AT BEDSIDE AND PRESENT FOR DC EDUCATION WELL. PT ALSO PROVIDED STAGE 2 APPT DATE FOR 10/30/24. PT AND HER BROTHER WERE INFORMED THEY WOULD BE RECEIVING FURTHER INSTRUCTIONS AND TIME OF ARRIVAL CLOSER TO DAY OF PROCEDURE. PT REMINDED OF NEED TO SPONGE BATH DURING SNM TRIAL AND THAT DEVICE CAN NOT GET WET OR SUBMERGED IN LIQUID. PT RX'S PROVIDED. PT AND BROTHER VERBALIZED UNDERSTANDING OF DC EDUCATION. ALL QUESTIONS ANSWERED. PT UG CHANGED D/T REPORTS OF VOIDING WITH COUGHING. UG REMOVED WAS HEAVY WITH URINE. SKYLAR-CARE PROVIDED AND FRESH UG APPLIED. 1335-IV REMOVED, TIP OBSERVED TO BE INTACT. PRESSURE DRESSING APPLIED WITH GAUZE AND COBAN. ASSITED PT WITH DRESSING AND TRANSFERRING FROM BED TO PERSONAL WC. 1345-ROUTINE REASSESSMENT COMPLETED. VS TAKEN. PT DENIES NAUSEA. SURGICAL SITE OBSERVED. NO CHANGES FROM INITIAL ASSESSMENT NOTED. PT REPORTS NO CHANGES IN PAIN AND CONT TO RATE AT 3/10 WITH THAT BEING TOLERABLE FOR HER. PT BROTHER LEFT TO TAKE PERSONAL BELONGINGS TO CAR AND PULL CAR AROUND FRONT FOR PTS DISCHARGE. SATS STABLE ON RA WITH SATS 93% OR GREARTER. PT ENCOURAGED TO CONT WITH DEEP BREATHING AND COUGHING EXERCISES. PT VERBALIZED UNDERSTANDING.
--- NOTE | 2024-10-23 13:50 | NUR ---
PT DISCHARGED FROM DS VIA PERSONAL WC TO PASSENGER SIDE OF HER BROTHERS VEHICLE. ALL PERSONAL BELONGINGS TAKEN WITH PT.
== END 2024-10-23 13:50 | disposition home or self-care (01) ==
LOC: DS 05:55 → OPS 05:55 → DS 07:30 → OPS 07:30
PROVIDERS: ATTEND Urology
PROC: 0TH Urinary System, Insertion (ICD-10-PCS; principal; 2024-10-23 07:30)
DX: N32.81 Overactive bladder (principal); N39.41 Urge incontinence; G35 Multiple sclerosis; E78.5 Hyperlipidemia, unspecified; I10 Essential (primary) hypertension; F33.0 Major depressive disorder, recurrent, mild; K21.9 Gastro-esophageal reflux disease without esophagitis; Z79.899 Other long term (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; Z88.6 Allergy status to analgesic agent; Z88.5 Allergy status to narcotic agent; Z88.8 Allergy status to other drugs, medicaments and biological substances; Z90.710 Acquired absence of both cervix and uterus
CPT/HCPCS: 00300; 72220; C1778; C1889; C1897; J0690; J1100; J2405; J2704; J3010; J3490; J7121

== ENCOUNTER 2024-10-30 06:15 | Day surgery (SDC) | payer MEDICARE, OTHER ==
[2024-10-19 14:50] VITALS: BP 140/79
[~2024-10-30] VITALS: Ht 157.5 cm; Wt 59.1 kg
[~2024-10-30 06:15] MED LIST changes: +OXYCODONE HCL5 MG PO
[2024-10-30 06:33] VITALS: BP 144/68
[2024-10-30] MEDS ORDERED: CEFAZOLIN SODIUM 2 GM/20 ML SYR IV SCH (07:00)
[2024-10-30] MEDS ORDERED: IBLOOD GLUCOSE TEST STRIP 1 EA TEST VI PRN (07:00)
[2024-10-30] MEDS ORDERED: LIDOCAINE HCL 1% 5 ML SDV INJ ONE (07:00)
[2024-10-30] MEDS ORDERED: KETAMINE in NS 50 MG/5 ML SYR ONE (07:24)
[2024-10-30] MEDS ORDERED: propofoL 200 MG/20 ML VIAL ONE (07:27)
[2024-10-30] MEDS ORDERED: ondansetron HCL 4 MG/2 ML VIAL ONE (07:27)
[2024-10-30] MEDS ORDERED: ACETAMINOPHEN 1,000 MG/100 ML VIAL ONE (07:27)
[2024-10-30] MEDS ORDERED: dexmedeTOMIDine HCl 200 MCG/2 ML VIAL ONE (07:27)
[2024-10-30] MEDS ORDERED: DEXAMETHASONE SOD PHOS 4 MG/ML VIAL ONE (07:27)
[2024-10-30] MEDS ORDERED: GLYCOPYRROLATE 1 MG/5 ML MDV ONE (07:28)
[2024-10-30] MEDS ORDERED: METOCLOPRAMIDE HCL 10 MG/2 ML SDV ONE (07:28)
[2024-10-30] MEDS ORDERED: MORPHINE SULFATE 4 MG/ML VIAL IV PRN (07:45)
[2024-10-30] MEDS ORDERED: ondansetron HCL 4 MG/2 ML VIAL IV PRN (07:45)
[2024-10-30] MEDS ORDERED: OXYCODONE/APAP 5/325 TAB PO PRN (07:45)
--- NOTE | 2024-10-30 08:53 | NUR ---
10/30/24 0853 Tonie Engle 0841-PT ARRIVES TO PACU RESTING SEMI FOWLERS, PT AWAKE AND DENIES PAIN OR NAUSEA. VSS ON RA, RR EVEN AND UNLABORED. 0850-PT TALKING TO [employer] REP AT BEDSIDE. VSS ON RA.
[2024-10-30 09:03] VITALS: BP 131/69
== END 2024-10-30 09:20 | disposition home or self-care (01) ==
LOC: OPS 06:15 → DS 06:15 → OPS 07:30
PROVIDERS: ATTEND Urology
PROC: 0JH70MZ Insertion of Stimulator Generator into Back Subcutaneous Tissue and Fascia, Open Approach (ICD-10-PCS; principal; 2024-10-30 07:30)
DX: N32.81 Overactive bladder (principal); G35 Multiple sclerosis; E78.5 Hyperlipidemia, unspecified; Z79.899 Other long term (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; Z88.5 Allergy status to narcotic agent; Z88.8 Allergy status to other drugs, medicaments and biological substances
CPT/HCPCS: 00300; 72220; C1767; C1787; J0131; J0690; J1100; J2405; J2704; J2765; J3490; J7121

== ENCOUNTER 2024-12-05 14:20 | Inpatient (IN) | payer MEDICARE, OTHER ==
[~2024-12-05] VITALS: Ht 157.5 cm; Wt 55.5 kg
[~2024-12-05 14:20] MED LIST changes: -LACTATED RINGER'S 1,000 ML IV SCH; +XALATAN2.5 ML OU
[2024-12-05 14:51] LABS: BILIRUBIN, URINE NEGATIVE (negative); BLOOD/HGB, URINE NEGATIVE (Negative); KETONE, URINE NEGATIVE (Negative); LEUK ESTERASE, URINE NEGATIVE (negative); NITRITE, URINE NEGATIVE (negative)
[2024-12-05 15:05] LABS: AMPHETAMINES, URINE NEGATIVE (NEGATIVE); BARBITURATES, URINE NEGATIVE (NEGATIVE); BENZODIAZEPINE, URINE NEGATIVE (NEGATIVE); BUPRENORPHINE, URINE NEGATIVE (NEGATIVE); CANNABINOID, URINE NEGATIVE (NEGATIVE); COCAINE, URINE NEGATIVE (NEGATIVE); ECSTASY, URINE NEGATIVE (NEGATIVE); FENTANYL, URINE NEGATIVE (NEGATIVE); METHADONE, URINE NEGATIVE (NEGATIVE); OPIATES, URINE NEGATIVE (NEGATIVE); OXYCODONE, URINE NEGATIVE (NEGATIVE); PHENCYCLIDINE, URINE NEGATIVE (NEGATIVE)
[2024-12-05 15:09] LABS: BASOPHILS 1.1 % (0-2); EOSINOPHILS 1.8 % (0-6); HEMATOCRIT 33.9 % (35.0-50.0); HEMOGLOBIN 11.1 g/dL (12.0-18.0); LYMPHOCYTES 25.7 % (24-44); MCH 26.1 (27-36); MCHC 32.8 g/dl (30-36); MCV 79.5 fl (81-99); MONOCYTES 5.9 % (0-12); NEUTROPHILS 65.5 % (39-80); PLATELET COUNT 530 K/uL (140-440); RBC 4.26 M/ul (4.3-5.7); RDW 16.4 (10.5-15.0)
[2024-12-05 15:28] LABS: ALBUMIN 2.7 g/dL (3.4-5.0); ALBUMIN/GLOBULIN RATIO 0.61 (1.1-2.4); ALCOHOL, MEDICAL <3 ng/dL (<3); ALKALINE PHOSPHATASE 151 U/L (46-116); ALT (SGPT) 31 U/L (14-59); AST (SGOT) 26 U/L (15-37); BILIRUBIN, TOTAL 0.3 ng/dL (0.2-1.0); BUN/CREATININE RATIO 22.72 (6.0-28.6); CALCIUM 9.3 mg/dL (8.5-10.1); CARBON DIOXIDE 27 mmol/L (21-32); CHLORIDE 103 mmol/L (98-107); CREATININE, SERUM 0.66 mg/dL (0.55-1.02); GLOMERULAR FILTRATION RATE,EST 95 mL/min (>60); PROTEIN, TOTAL 7.1 g/dL (6.4-8.2); UREA NITROGEN 15 mg/dL (7-18)
[2024-12-05] MEDS ORDERED: SODIUM CHLORIDE 0.9% 1,000 ML IV PRN (16:30)
[2024-12-05 16:46] LABS: MAGNESIUM 1.9 mg/dL (1.8-2.4); TSH, 3RD GENERATION 1.467 uIU/mL (0.358-3.740)
[2024-12-05] MEDS ORDERED: POTASSIUM CHLORIDE 10 MEQ/100 ML BAG IV ONE ×2 (19:00→21:30)
[2024-12-05] MEDS ORDERED: ACETAMINOPHEN 325 MG TAB PO PRN (19:15)
[2024-12-05] MEDS ORDERED: ondansetron HCL 4 MG/2 ML VIAL IV PRN (19:15)
[2024-12-05] MEDS ORDERED: LACTATED RINGER'S 1,000 ML IV SCH (19:15)
--- NOTE | 2024-12-05 20:18 | NUR ---
pt ARRIVED FROM ED TO MS FLOOR VIA ED STRETCHER. pt TRANSFERED VIA TRANSFER SHEET, 2PA. pt SLOW TO RESPOND AT TIMES, BUT INTERACTS AND ANSWERS QUESTIONS. ADMISSION COMPLETED, IV FLUIDS HUNG AND INFUSING DIRECTED. IV SITE WNL, POC DISUSSED. CALL LIGHT IN REACH. pt ON RA, RR EVEN AND UNLABORED. NO ADDITIONAL NEEDS OR CONCERNS VERBALIZED.
[2024-12-05 20:25] VITALS: BP 109/68; BP 111/58
--- NOTE | 2024-12-05 20:32 | NUR ---
PATIENT ARRIVED TO THE FLOOR VIA STRETCHER. PATIENT MOVED FROM STRETCHER TO BED BY STAFF. PATIENT INCONT OF URINE. PUREWICK AND ATTTEND PLACED. PATIENT IS AAOX4 BUT SLOW TO ANSWER QUESTIONS IV INFUSING PER ORDER. PATIENTS IV INFUSING PER ORDER. PLACED CALL TO MOTOR BUS DRIVER TO MIX MEDICATION. ASSESMENT COMPLETED. BED ALARM PLACED ON FOR SAFETY. PATIENT DENIES ANY NEEDS. RN REMAINS IN ROOM TO COMPLETE ADMISSION
[2024-12-05] MEDS ORDERED: methylPREDNISolone SOD SUCC 125 MG/2 ML VIAL ONE (20:45)
[2024-12-05] MEDS ORDERED: clonazePAM 0.5 MG TAB PO SCH (21:00)
[2024-12-05] MEDS ORDERED: methylPREDNISolone SOD SUCC 125 MG/2 ML VIAL IV SCH (21:00)
[2024-12-05] MEDS ORDERED: MELATONIN 3 MG TAB PO PRN (21:00)
--- NOTE | 2024-12-05 21:11 | EKG ---
[facility] [address] [place] [address] Signed Normal sinus rhythm Abnormal ECG When compared with ECG of 19-OCT-2024 14:32, Minimal criteria for Anterior infarct are no longer present Nonspecific T wave abnormality no longer evident in Anterior leads Confirmed by Genesis Mena MD () on 12/05/2024 9:10:52 PM Electronically Signed By: GENESIS MENA MD 12/05/242110 PATIENT NAME: KEEGAN CURRY Electrocardiogram DATE OF : 55 PHYSICIAN: GENESIS MENA MD REPORT #: [id number] REPORT IS CONFIDENTIAL AND NOT TO BE RELEASED WITHOUT AUTHORIZATION
[2024-12-05] MEDS ORDERED: POTASSIUM CHLORIDE 10 MEQ/100 ML BAG IV SCH (22:00)
--- NOTE | 2024-12-05 22:30 | NUR ---
PATIENT IS RESTING IN BED. IV INFUSING PER ORDER. NEW IV PLACED DUE TO IV MEDICATION NOT COMPATIBLE. PATIENT TOLERATED ACTIVITY WELL. PATIENT REPOSITIONED IN BED. PATIENT DENIES ANY NEEDS. CALL LIGHT IN REACH.
--- NOTE | 2024-12-05 23:15 | NUR ---
IV PUMP ALARMING, IV STERIOD INFUSION COMPLETE. IV SITE TO LEFT AC WNL AND SALINE LOCKED WITH 10MLS NS. NO ADDITIONAL NEEDS OR CONCERNS VERBALIZED. PRIMARY RN UPDATED AND AWARE.
--- NOTE | 2024-12-05 23:30 | NUR ---
PATIENT IS RESTING IN BED. FIRST BAG OF POTASSIUM COMPLETED INFUSING. SECOND BAG OF POTASSIUM STARTED PER ORDER. PATIENT DENIES ANY NEEDS. CALL LIGHT IN REACH.
[2024-12-06] VITALS (9 sets, daily range): BP systolic 129–147; BP diastolic 61–73
--- NOTE | 2024-12-06 00:18 | NUR ---
PATIENT IS RESTING IN BED WITH EYES CLSOED, RR 16. CALL LIGHT IN REACH. IV INFUSING PER ORDER. NAD NOTED. BED ALARM ON FOR SAFETY.
--- NOTE | 2024-12-06 02:02 | NUR ---
PATIENTS VITALS TAKEN AND RECORDED. PATIENT INCONT OF URINE. SKYLAR CARE COMPLETED AND NEW ATTEND IN PLACE. PUREWICK IN USE. PATIENT REPOSITIONED IN BED. PATIENT DENIES ANY PAIN. MRI SHEET COMPLETED AND SIGNED BY PATIENT. VITALS TAKEN AND RECORDED. IV INFUSING PER ORDER. PATIENT PROVIDED SIPS OF WATER. PATIENT DENIES ANY FURTHER NEEDS. CALL LIGHT IN REACH. PATIENT IS AAOX4.
[2024-12-06 05:39] LABS: BASOPHILS 0.2 % (0-2); HEMATOCRIT 32.3 % (35.0-50.0); HEMOGLOBIN 10.4 g/dL (12.0-18.0); LYMPHOCYTES 4.9 % (24-44); MCH 26.1 (27-36); MCHC 32.4 g/dl (30-36); MCV 80.8 fl (81-99); MONOCYTES 0.5 % (0-12); NEUTROPHILS 94.4 % (39-80); PLATELET COUNT 463 K/uL (140-440); RBC 3.99 M/ul (4.3-5.7); RDW 16.6 (10.5-15.0)
[2024-12-06 05:57] LABS: ALBUMIN 2.4 g/dL (3.4-5.0); ALBUMIN/GLOBULIN RATIO 0.57 (1.1-2.4); ANION GAP 14.2 (7-21); BILIRUBIN, TOTAL 0.2 ng/dL (0.2-1.0); BUN/CREATININE RATIO 17.54 (6.0-28.6); CALCIUM 8.6 mg/dL (8.5-10.1); CREATININE, SERUM 0.57 mg/dL (0.55-1.02); MAGNESIUM 1.7 mg/dL (1.8-2.4); PHOSPHORUS, INORGANIC 2.5 mg/dL (2.5-4.9); POTASSIUM 4.2 mmol/L (3.5-5.1); PROTEIN, TOTAL 6.6 g/dL (6.4-8.2)
--- NOTE | 2024-12-06 06:15 | NUR ---
PATIENT REPOSITIONED IN BED. PATIENTS VITALS TAKEN AND RECORDED. PATIENT INCONT OF URINE. SKYLAR CARE COMPLETED AND NEW ATTEND IN PLACE. NEW PUREWICK IN PLACE. PATIENT POSITIONED ON RIGHT SIDE. PATIENTS INTAKE AND OUTPUT RECORDED. PATIENT PROVIDED SIPS OF WATER. PATIENT PROVIDED WARM BLANKET. PATIENT DENIES ANY NEEDS. CALL LIGHT IN REACH IV INFUSING PER ORDER.
--- NOTE | 2024-12-06 08:04 | NUR ---
PT RESTING WITH EYES CLOSED, DID NOT AWAKEN PATIENT AFTER RECEIVING REPORT. ALLOWED TO REST AT THIS TIME, CALL LIGHT WAS WITHIN REACH. ALL PT CARE NEEDS MET AT THIS TIME.
[2024-12-06] MEDS ORDERED: MAGNESIUM SULFATE 2 GM/50 ML BAG IV ONE (08:15)
--- NOTE | 2024-12-06 08:15 | NUR ---
PT AWAKENED AT THIS TIME, ASSISTED UPRIGHT IN BED, PILLOWS UNDER THE SIDE FOR COMFORT, MEAL TRAY SETUP THIS MORNING AND PT ABLE TO FEED SELF. SHE IS SHAKY WHICH SHE STATES IS BASELINE FROM HER MS. PT PUREWICK REMAINS IN PLACE AT THIS TIME. PT WAS ABLE TO TAKE MEDICATIONS WITHOUT ANY ISSUES. CALL LIGHT WITHIN REACH, DENIES ANY FURTHER NEEDS, ALLOWED TO EAT BREAKFAST.
[2024-12-06] MEDS ORDERED: ENOXAPARIN SODIUM 40 MG/0.4 ML SYR SUB-Q SCH (09:00)
--- NOTE | 2024-12-06 10:20 | NUR ---
PT NOT AVAILABLE FOR VISIT. PROVIDED PRAYER.
--- NOTE | 2024-12-06 11:08 | NUR ---
SPOKE WITH PATIENT AND BROTHER, LEONORA. PATIENT LIVES WITH LEONORA AND JESSY. HER BROTHER AND [id number]. THEY LIVE IN A DOUBLE WIDE MOBILE HOME BUT DO NOT HAVE STAIRS. WHEELCHAIR AND SHOWER CHAIR AT HOME. PATIENT DOES NOT DRIVE. FAMILY ASSISTS WITH TRANSPORTATION. PATIENT AND BROTHER BOTH DENY FINANCIAL ISSUES. THEY STATE THEY CAN AFFORD FOOD AND MEDICATIONS AND HAVE NO DIFFICULTY PAYING FOR UTILITIES. BOTH DENY CASE MANAGEMENT NEEDS AT THIS TIME. WILL REVISIT WITH THEM DURING STAY TO ENSURE NOTHING CHANGES.
[2024-12-06] MEDS ORDERED: PHARMACY RENAL DOSE ADJUSTMENT 1 DOSE MISC PO SCH (12:00)
--- NOTE | 2024-12-06 12:05 | NUR ---
PT LEFT THE FLOOR FOR MRI. RN AWARE. BLADDER STIMULATOR REMOTE WAS BROUGHT IN BY BROTHER AND PRESENT IN THE ROOM, DOCUMENTED IN PATIENT BELONGINGS.
--- NOTE | 2024-12-06 15:02 | NUR ---
UR CLINICAL REVIEW: 2 MN FOR VERSALUS-MEETS INPT CRITERIA MEDICARE INPT 12/05/24 @ 1942 ORDER MATCHES REG NO AUTH REQUIRED PER MEDICARE GUIDELINES DISCHARGE TO HOME WITH FAMILY WHEN STABLE
--- NOTE | 2024-12-06 15:57 | NUR ---
PATIENT IN BED AT THIS TIME. 2 CNAS IN ROOM AT THIS TIME, CNAS CHANGED BRIEF, CHUX, AND DRAW SHEET. PATIENT HAD 1 LARGE BOWEL MOVEMENT, PILOT CONTROL OPERATOR CHARTED VOIDINGS ON BOARD IN ROOM. NEW PUREWICK PLACED AT 1530. CALL LIGHT WITHIN REACH, NO FURTHER NEEDS AT THIS TIME.
--- NOTE | 2024-12-06 17:06 | NUR ---
PT RESTING IN BED, TV TURNED ON FOR PATIENT. IV FLUIDS RESTARTED FROM WHEN PT ARRIVED BACK TO FLOOR FROM MRI. VERIFIED THAT PATIENT BLADDER STIMULATOR IS ON, REMOTE IS IN THE BOX ON THE COUNTER. I HAVE PLACED THAT IN THE PATIENT LOCK BOX IN THE ROOM FOR SAFE KEEPING. PT C/O PAIN 03/08 AT THIS TIME. CALL LIGHT WITHIN REACH, WOULD LIKE TO EAT DINNER BEFORE SHE TAKES ANYTHING FOR PAIN. DENIES ANY FURTHER NEEDS AT THIS TIME.
--- NOTE | 2024-12-06 18:21 | NUR ---
PT IN BED, FAMILY PRESENT AT BEDSIDE. PT TURNED AND BOOSTED IN BED, CONTINUES TO FINISH DESSERT FOR DINNER. PRN TYLENOL GIVE FOR 5/10 PAIN TO (L), PT STATE IT HAS BEEN BOTHER ING HER SINCE ADMISSION, DO NOT SEE ANY SIGNIFICANT BRUISING/SOURCE OF PAIN BUT SHE DOES REPORT SHE SLIDE OUT OF BED. PUREWICK REMAINS IN PLACE AT THIS TIME, FAMILY ASSISTING HER WITH FOOD. CALL LIGHT WITHIN REACH ALL PT CARE NEEDS MET.
--- NOTE | 2024-12-06 19:15 | NUR ---
REPORT RECEIVED FROM GLENN ROBERTSON. pt RESTING IN THE BED. pt DENIES ANY OTHER NEEDS AT THIS TIME. CALL LIGHT WITHIN REACH.
--- NOTE | 2024-12-06 20:45 | NUR ---
LEAD TECHNOLOGIST IN CYTOGENETICS OBTAINED VITALS AND I&O. LYNETTE CANNISTER EMPTIED. PT STATES NO NEEDS AT THIS TIME. CALL LIGHT WITHIN REACH.
--- NOTE | 2024-12-06 22:10 | NUR ---
ASSESSMENT DONE. SCHEDULED MEDS ADMINISTERED. IV'S ASSESSED, WNL. IVF INFUSING PER ORDER. pt DENIES ANY OTHER NEEDS AT THIS TIME. CALL LIGHT WITHIN REACH. BRIEF CHANGED. NEW [place] PLACED.
--- NOTE | 2024-12-06 23:15 | NUR ---
pt RESTING IN THE BED IV BEEPING. IV MEDS COMPLETE. pt DENIES ANY OTHER NEEDS AT THIS TIME. CALL LIGHT WITHIN REACH.
[2024-12-07] VITALS (8 sets, daily range): BP systolic 142–150; BP diastolic 58–71
--- NOTE | 2024-12-07 02:06 | NUR ---
pt RESTING IN THE BED WITH EYES CLOSED. RR EVEN AND UNLABORED. CALL LIGHT WITHIN REACH.
--- NOTE | 2024-12-07 03:36 | NUR ---
pt RESTING IN THE BED WITH EYES CLOSED. RR EVEN AND UNLABORED. CALL LIGHT WITHIN REACH.
[2024-12-07 05:29] LABS: BASOPHILS 0.5 % (0-2); EOSINOPHILS 0.1 % (0-6); HEMATOCRIT 28.8 % (35.0-50.0); HEMOGLOBIN 9.6 g/dL (12.0-18.0); LYMPHOCYTES 5.4 % (24-44); MCH 26.4 (27-36); MCHC 33.3 g/dl (30-36); MCV 79.3 fl (81-99); MONOCYTES 0.8 % (0-12); NEUTROPHILS 93.2 % (39-80); PLATELET COUNT 513 K/uL (140-440); RBC 3.63 M/ul (4.3-5.7); RDW 16.8 (10.5-15.0)
--- NOTE | 2024-12-07 05:35 | NUR ---
pt NEW PURE WICK PLACED. VS DONE. ASSESSMENT DONE. pt DENIES ANY OTHER NEEDS AT THIS TIME. CALL LIGHT WITHIN REACH.
[2024-12-07 05:44] LABS: ALBUMIN 2.3 g/dL (3.4-5.0); ALBUMIN/GLOBULIN RATIO 0.53 (1.1-2.4); ANION GAP 12.8 (7-21); BILIRUBIN, TOTAL 0.1 ng/dL (0.2-1.0); BUN/CREATININE RATIO 22.85 (6.0-28.6); CALCIUM 8.7 mg/dL (8.5-10.1); CREATININE, SERUM 0.7 mg/dL (0.55-1.02); MAGNESIUM 1.9 mg/dL (1.8-2.4); POTASSIUM 3.8 mmol/L (3.5-5.1); PROTEIN, TOTAL 6.6 g/dL (6.4-8.2)
--- NOTE | 2024-12-07 07:12 | NUR ---
REPORT RECEIVED FROM MARCELO OSORIO. PT RESTING ON L SIDE IN BED, EYES CLOSED, RR EVEN AND UNLABORED. IVF INFUSING WNL. CALL LIGHT IN REACH.
--- NOTE | 2024-12-07 08:02 | NUR ---
MORNING MEDICATIONS ADMINISTERED, SEE MAR. ASSESSMENT COMPLETE. PT IS RESTING IN BED AT THIS TIME WATCHING TELEVISION. PT HAS COMPLAINTS OF L EYE PAIN SHE STATES IS CHRONIC. A WARM, WET WASHCLOTH IS PROVIDED AND SHE REPORTS THIS HELPS QUITE A BIT. PT ALSO WASHES HER FACE AT THIS TIME. PT IS ALERT AND ORIENTED, REPORTS THAT SHE IS ANXIOUS TO GET HOME SHE MISSES HER CATS. IVF INFUSING WNL INTO R AC IV. PTs PUREWICK NOTED TO BE DRAINING DILUTE, YELLOW URINE INTO CANNISTER AT THIS TIME. PT HAS NO OTHER REQUESTS OR COMPLAINTS AT THIS TIME, CALL LIGHT IS IN REACH.
--- NOTE | 2024-12-07 08:58 | NUR ---
PT ALMOST FINISHED WITH BREAKFAST AT THIS TIME, CONTINUES WATCHING TELEVISION AND HAS NO COMPLAINTS OR REQUESTS. CALL LIGHT IN REACH.
[2024-12-07] MEDS ORDERED: NORTRIPTYLINE H10 MG PO (09:22)
--- NOTE | 2024-12-07 09:22 | NUR ---
MED REC COMPLETE
[2024-12-07] MEDS ORDERED: dilTIAZem HCL 120 MG CAPCR PO SCH (10:15)
--- NOTE | 2024-12-07 10:20 | NUR ---
PTs SON UPDATED ON PT PLAN OF CARE AND POSSIBLE DISCHARGE PER PTs REQUEST. PT RESTING IN BED SORTING THROUGH HER CLOTHES IN HER PT BELONGINGS BAG. NO OTHER REQUESTS AT THIS TIME, CALL LIGHT IN REACH.
--- NOTE | 2024-12-07 10:38 | NUR ---
MEDICATION ADMINISTERED, SEE MAR. PT SUPPLIED WITH TWO WARM BLANKETS AND FRESH TOP SHEET AND COMFORTER. PT EXPRESSES AGAIN THAT SHE WOULD LIKE TO GO HOME. PT RESTING IN BED WITH HOB ELEVATED, IVF INFUSING WNL, NO OTHER REQUESTS AT THIS TIME. CALL LIGHT IN REACH.
--- NOTE | 2024-12-07 10:53 | NUR ---
VISITED DURING SPIRITUAL CARE ROUNDS. PT IN OVERALL GOOD SPIRITS, EXPRESSED HOPE FOR TIMELY DISCHARGE. PLASTICS FABRICATOR AND ASSEMBLER PROVIDED SUPPORTIVE PRESENCE, HOSPTIALITY, PRAYER, FACILITATED INTERACTION WITH THERAPY ANIMAL. PT EXPRESSED GRATITUDE, HOPE.
--- NOTE | 2024-12-07 12:03 | NUR ---
PT IVF INTAKE CLEARED AND RECORDED AT THIS TIME. FRESH ICE WATER PROVIDED. NO OTHER REQUESTS, CALL LIGHT IN REACH.
--- NOTE | 2024-12-07 12:45 | NUR ---
INTO SEE PATIENT. IMM FORM COMPLETED. PATIENT DOES NOT NEED ANY OTHER CASE MANAGEMENT AT THIS TIME. PLAN FOR D/C TODAY.
--- NOTE | 2024-12-07 13:44 | NUR ---
LUNCH TRAY REMOVED. PT REQUESTING USE OF PHONE, PROVIDED. NO OTHER REQUESTS AT THIS TIME, CALL LIGHT IN REACH.
--- NOTE | 2024-12-07 14:08 | NUR ---
MD PRESENT TO SPEAK WITH PT AND ASSESS. ALL PT QUESTIONS ANSWERED, PT EXPRESSES TO MD THAT SHE IS LOOKING FORWARD TO GOING HOME. NO OTHER REQUESTS AT THIS TIME, CALL LIGHT IN REACH.
[2024-12-07] MEDS ORDERED: PREDNISONE20 MG PO (14:27)
[2024-12-07] MEDS ORDERED: GABAPENTIN 300 MG CAP PO SCH (15:00)
--- NOTE | 2024-12-07 15:00 | NUR ---
HOME HEALTH REFFERAL SENT TO [facility]
--- NOTE | 2024-12-07 15:21 | NUR ---
PT ASSISTED IN GETTING READY FOR DISCHARGE BY SIERRA SANTIZO. PT CHANGED WITH SKYLAR-CARE PROVIDED AND FRESH BRIEF APPLIED. IVs REMOVED WNL BY SIERRA SANTIZO. PT HAS BED ALARM IN PLACE, REPORTS SHE WANTS TO WAIT FOR HER SON TO GET DISCHARGE INSTRUCTIONS. NO OTHER REQUESTS AT THIS TIME, CALL LIGHT IN REACH.
[2024-12-07] MEDS ORDERED: GABAPENTIN 600 MG TAB PO SCH (21:00)
== END 2024-12-07 16:04 | disposition home health service (06) | DRG 60 ==
LOC: ED 14:20 → MS 19:42
PROVIDERS: Emergency Medicine; ADMIT Family Medicine; ATTEND Family Medicine
DX: G35 Multiple sclerosis (principal); E87.6 Hypokalemia; E83.42 Hypomagnesemia; F41.9 Anxiety disorder, unspecified; F32.A Depression, unspecified; I48.91 Unspecified atrial fibrillation; K21.9 Gastro-esophageal reflux disease without esophagitis; Z96.641 Presence of right artificial hip joint; Z79.899 Other long term (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; Z88.8 Allergy status to other drugs, medicaments and biological substances; Z88.5 Allergy status to narcotic agent; Z88.6 Allergy status to analgesic agent; Z88.1 Allergy status to other antibiotic agents
CPT/HCPCS: 36415; 51701; 70450; 70553; 71045; 80053; 80307; 81003; 83735; 84100; 84443; 84484; 85025; 93005; 93010; 97161; 97165; 99285-25; A9270; A9579; G0480; J1650; J2919; J3475; J3480; J7030; J7050; J7121

== ENCOUNTER 2025-03-12 19:15 | Emergency (ER) | payer MEDICARE, OTHER ==
[~2025-03-12] VITALS: Ht 157.5 cm; Wt 58.2 kg
[~2025-03-12 19:15] MED LIST changes: +PREDNISONE20 MG PO
[2025-03-12] MEDS ORDERED: ondansetron HCL 4 MG/2 ML VIAL IV ONE (19:30)
[2025-03-12 19:35] LABS: BASOPHILS 1.1 % (0-2); EOSINOPHILS 0.9 % (0-6); HEMATOCRIT 33.6 % (35.0-50.0); LYMPHOCYTES 25.5 % (24-44); MCH 25.1 (27-36); MCHC 32.8 g/dl (30-36); MCV 76.6 fl (81-99); MONOCYTES 6.1 % (0-12); NEUTROPHILS 66.4 % (39-80); PLATELET COUNT 478 K/uL (140-440); RBC 4.39 M/ul (4.3-5.7); RDW 19.3 (10.5-15.0)
[2025-03-12 19:50] LABS: ALBUMIN 3.2 g/dL (3.4-5.0); ALCOHOL, MEDICAL <3 ng/dL (<3); ALKALINE PHOSPHATASE 176 U/L (46-116); ALT (SGPT) 30 U/L (14-59); ANION GAP 11.5 (7-21); AST (SGOT) 14 U/L (15-37); BILIRUBIN, TOTAL 0.2 mg/dL (0.2-1.0); BUN/CREATININE RATIO 31.08 (6.0-28.6); CALCIUM 9.8 mg/dL (8.5-10.1); CARBON DIOXIDE 29 mmol/L (21-32); CHLORIDE 101 mmol/L (98-107); CREATININE, SERUM 0.74 mg/dL (0.55-1.02); GLOMERULAR FILTRATION RATE,EST 88 mL/min (>60); POTASSIUM 3.5 mmol/L (3.5-5.1); PROTEIN, TOTAL 7.8 g/dL (6.4-8.2); UREA NITROGEN 23 mg/dL (7-18)
[2025-03-12 20:19] LABS: ABO A; ANTIBODY SCREEN NEGATIVE; RH POSITIVE
[2025-03-12 20:37] LABS: BILIRUBIN, URINE NEGATIVE (negative); BLOOD/HGB, URINE NEGATIVE (Negative); KETONE, URINE NEGATIVE (Negative); LEUK ESTERASE, URINE NEGATIVE (negative); NITRITE, URINE NEGATIVE (negative)
[2025-03-12 20:52] LABS: AMPHETAMINES, URINE POSITIVE (NEGATIVE); BARBITURATES, URINE NEGATIVE (NEGATIVE); BENZODIAZEPINE, URINE NEGATIVE (NEGATIVE); BUPRENORPHINE, URINE NEGATIVE (NEGATIVE); CANNABINOID, URINE NEGATIVE (NEGATIVE); COCAINE, URINE NEGATIVE (NEGATIVE); ECSTASY, URINE NEGATIVE (NEGATIVE); FENTANYL, URINE NEGATIVE (NEGATIVE); METHADONE, URINE NEGATIVE (NEGATIVE); OPIATES, URINE NEGATIVE (NEGATIVE); OXYCODONE, URINE NEGATIVE (NEGATIVE); PHENCYCLIDINE, URINE NEGATIVE (NEGATIVE)
[2025-03-12] MEDS ORDERED: ACETAMINOPHEN 325 MG TAB PO ONE (21:15)
[2025-03-12] MEDS ORDERED: ONDANSETRON 4 MG HOME.PACK SL ONE (21:15)
[2025-03-12 21:36] VITALS: BP 122/70
== END 2025-03-12 21:35 | disposition home or self-care (01) ==
LOC: ED 19:15
PROVIDERS: Internal Medicine
DX: S00.03XA Contusion of scalp, initial encounter (principal); G35 Multiple sclerosis; W18.30XA Fall on same level, unspecified, initial encounter; Z96.641 Presence of right artificial hip joint; Z88.5 Allergy status to narcotic agent; Z88.8 Allergy status to other drugs, medicaments and biological substances; Z79.52 Long term (current) use of systemic steroids; Z79.899 Other long term (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
CPT/HCPCS: 36415; 70450; 71045; 71046; 72125; 72170; 80053; 80307; 81003; 83690; 85025; 86850; 86900; 86901; 96374; 99285-25; A9270; G0480; J2405

== ENCOUNTER 2025-08-05 09:25 | Inpatient (IN) | payer MEDICARE, OTHER ==
[~2025-08-05] VITALS: Ht 157.5 cm; Wt 54.0 kg
[2025-08-05 09:43] LABS: BLOOD/HGB, URINE LARGE (Negative); KETONE, URINE SMALL (Negative); LEUK ESTERASE, URINE NEGATIVE (negative); NITRITE, URINE POSITIVE (negative)
[2025-08-05 09:47] LABS: BASOPHILS 0.3 % (0.1-1.2); EOSINOPHILS 0.1 % (0.7-5.8); LYMPHOCYTES 8.0 % (19.3-51.7); MCH 28.7 PG (25.6-32.2); MCHC 33.3 g/dL (32.2-35.5); MCV 86.1 fL (79.4-94.8); MONOCYTES 6.2 % (4.7-12.5); NEUTROPHILS 84.6 % (34.0-71.1); RBC 5.34 M/uL (3.93-5.22)
[2025-08-05 09:48] LABS: EPITHELIAL CELLS, URINE SQUAMOUS 1+ /lpf (0-1+)
[2025-08-05 09:49] LABS: BACTERIA, URINE 3+ /hpf (negative); CASTS, URINE NONE SEEN \\lpf; CRYSTALS, URINE NONE SEEN (0-1+); REFLEX CULTURE, URINE Yes (No)
[2025-08-05] MEDS ORDERED: ACETAMINOPHEN 650 MG SUPP PR ONE (10:00)
[2025-08-05 10:01] LABS: INR 1.02 (0.80-1.30); PROTIME 12.7 Sec (11.2-14.2)
[2025-08-05 10:05] LABS: ALT (SGPT) 23.0 U/L (14-59); AST (SGOT) 25.0 U/L (15-37); GLOMERULAR FILTRATION RATE,EST 95.0 mL/min (>60); PROTEIN, TOTAL 8.8 g/dL (6.4-8.2); UREA NITROGEN 27.0 mg/dL (7-18)
[2025-08-05 10:10] LABS: LACTIC ACID, BLOOD 1.7 mmol/L (0.4-2.0)
[2025-08-05] MEDS ORDERED: ELIQUIS5 MG PO (10:48)
[2025-08-05] MEDS ORDERED: SODIUM CHLORIDE 0.9% 1,000 ML IV PRN (11:00)
[2025-08-05] MEDS ORDERED: ACETAMINOPHEN 325 MG TAB PO PRN (12:30)
[2025-08-05] MEDS ORDERED: SODIUM CHLORIDE 0.9% 1,000 ML IV SCH (12:30)
[2025-08-05] MEDS ORDERED: HYDROCORTISONE SOD SUCCINATE 100 MG/2 ML VIAL IV ONE (12:45)
--- NOTE | 2025-08-05 13:33 | NUR ---
REPORT RECEIVED FROM MARCELO SALINAS. ADMISSION STARTED AT THIS TIME. VITAL SIGNS TAKEN AND DOCUMENTED IN THE CHART. PATIENT IS LYING IN BED WITH EYES OPEN AND RESPIRATIONS ARE EVEN AND UNLABORED. PATIENT RESPONDS TO NAME BY MOANING. CALL LIGHT AND PERSONAL BELONGINGS ARE WITHIN REACH.
[2025-08-05 13:42] VITALS: BP 160/80
[2025-08-05] MEDS ORDERED: MORPHINE SULFATE 4 MG/ML VIAL IV PRN (13:45)
--- NOTE | 2025-08-05 13:55 | NUR ---
AWARE OF PATIENT STATUS AND PUTTING IN NEW ORDERS.
[2025-08-05 14:02] VITALS: BP 160/80
--- NOTE | 2025-08-05 14:37 | NUR ---
PATIENT IS LYING IN BED WITH EYES CLOSED AND RESPIRATIONS ARE EVEN AND UNLABORED. PATIENT IS ON ROOM AIR AND CPOX IS AT BEDSIDE. CALL LIGHT AND PERSONAL BELONGINGS ARE WITHIN REACH.
--- NOTE | 2025-08-05 15:11 | NUR ---
PATIENT IS LYING IN BED WITH KNEES BENT. PATIENT WITH EYES CLOSED AND RESPIRATIONS ARE EVEN AND UNLABORED. NS CONTINUES TO INFUSE AT 125 ML/HR. CALL LIGHT AND PERSONAL BELONGINGS ARE WITHIN REACH.
--- NOTE | 2025-08-05 16:00 | NUR ---
JESSY, THE PATIENTS POA GIVEN AN UPDATE AT THIS TIME. ALL QUESTIONS AND CONCERNS ADDRESSED. JESSY STATED SHE WOULD COME UP TOMORROW TO VISIT THE PATIENT. CALL ENDED.
--- NOTE | 2025-08-05 16:12 | NUR ---
PATIENT IS LYING IN BED WITH WITH EYES CLOSED AND RESPIRATIONS ARE EVEN AND UNLABORED. ADMISSION COMPLETE AT THIS TIME. PATIENT REMAINS UNABLE TO RESPOND TO THIS RN. CARDIAC WITH NORMAL S1/S2 ON AUCULTATION. NO EDEMA NOTED. CAP REFILL IS LESS THAN 3 SECONDS BILATERALLY IN THE UPPER AND LOWER EXTREMITIES BILATERALLY. RADIAL AND PEDAL PULSES ARE STRONG BILATERALLY. NS IS INFUSING AT 125 ML/HR IN THE RAC. BRINK CATHETER IN PLACE. BOWEL TONES ARE ACTIVE IN ALL FOUR QUADRANTS. PATIENT IS ON ROOM AIR WITH CLEAR UPPER LOBES AND DIMINISHED IN THE BASES BILATERALLY. SKIN ASSESSMENT WITH BRAD SHOWED THE FOLLOWING: - MARIA DE JESUS BILATERAL SHINS - SCATERED SCABS AND SCARS - BRUISES SCATTERED AND LARGE BRUISE NOTED TO THE RIGHT HIP - ABRASION NOTED TO THE RIGHT MARTINEZ THAT IS OPEN TO AIR CALL LIGHT AND PERSONAL BELONGINGS ARE WITHIN REACH.
[2025-08-05] MEDS ORDERED: POTASSIUM CHLORIDE 40 MEQ,LIDOCAINE HCL 1% 40 MG in DEXTROSE 5% 250 ML IV ONE (17:00)
[2025-08-05 17:31] VITALS: BP 178/85
--- NOTE | 2025-08-05 17:40 | NUR ---
VITAL SIGNS AND INTAKE AND OUTPUT VALUES TAKEN AND DOCUMENTED IN THE CHART. PATIENT WITH NO COMPLAINTS OF PAIN WHEN ASKED BY THIS RN AND . AT BEDSIDE AND AWARE OF MOST RECENT VITAL SIGNS AND IMPROVED COGNITION. MD STATED NO FURTHER ORDERS AT THIS TIME.
[2025-08-05 17:44] VITALS: BP 178/85
--- NOTE | 2025-08-05 17:55 | NUR ---
WAFFLE MATTRESS OVERLAY PLACED AT THIS TIME. PATIENT STATED YES WHEN ASKED ABOUT GETTING PICTURES OF HER WOUNDS. PICTURES ARE IN THE CHART. ALEVYN PLACED TO THE RIGHT MARTINEZ FOR AN ABRASION. ALEVYN PLACED THE LEFT HIP FOR REDNESS. SCATTERED BRUISING, SCABS, AND SCARS NOTED THROUGHOUT. MD STATED TO GIVE PAIN MEDICATIONS AT THIS TIME. RN EXPRESSED UNDERSTANDING. NO FURTHER ORDERS AT THIS TIME.
[2025-08-05] MEDS ORDERED: POTASSIUM CHLORIDE 10 MEQ/100 ML BAG IV SCH (18:30)
--- NOTE | 2025-08-05 19:29 | NUR ---
RECEIVED REPORT ON PT. PT RESTING EYES CLOSED. CALL LIGHT WITH IN REACH.
[2025-08-05 20:10] VITALS: BP 151/76
[2025-08-05 20:13] VITALS: BP 151/76
[2025-08-05] MEDS ORDERED: ACETAMINOPHEN 1,000 MG/100 ML VIAL IV ONE (20:45)
--- NOTE | 2025-08-05 20:45 | NUR ---
MD ON FLOOR. UPDATED ON PT STATUS REGARDING HR AND TEMP. NEW ORDERS RECEIVED.
[2025-08-05] MEDS ORDERED: GABAPENTIN 300 MG CAP PO SCH (21:00)
[2025-08-05] MEDS ORDERED: DONEPEZIL HCL 10 MG TAB PO SCH (21:00)
[2025-08-05] MEDS ORDERED: APIXABAN 5 MG TAB PO SCH (21:00)
[2025-08-05] MEDS ORDERED: HYDROCORTISONE SOD SUCCINATE 100 MG/2 ML VIAL IV SCH (21:00)
[2025-08-05] MEDS ORDERED: POTASSIUM CHLORIDE 100 ML IV ONE (23:12)
--- NOTE | 2025-08-05 23:32 | NUR ---
PT RESTING IN BED WITH EYES CLOSED. CALL LIGHT WITH IN REACH.
[2025-08-06] VITALS (11 sets, daily range): BP systolic 103–155; BP diastolic 58–76
--- NOTE | 2025-08-06 00:40 | NUR ---
PT RESTING WITH EYES CLOSED. CALL LIGHT WITH IN REACH.
--- NOTE | 2025-08-06 03:54 | NUR ---
PT RESTING EYES CLOSED. PULSE 86 AND OXYGEN SAT 94%. CALL LIGHT WITH IN REACH.
[2025-08-06 05:35] LABS: BASOPHILS 0.3 % (0.1-1.2); EOSINOPHILS 0.3 % (0.7-5.8); LYMPHOCYTES 12.3 % (19.3-51.7); MCH 28.7 PG (25.6-32.2); MCHC 32.8 g/dL (32.2-35.5); MCV 87.5 fL (79.4-94.8); MONOCYTES 6.4 % (4.7-12.5); NEUTROPHILS 80.2 % (34.0-71.1); RBC 4.01 M/uL (3.93-5.22)
--- NOTE | 2025-08-06 05:36 | NUR ---
ASSESSMENT COMPLETE. PT RESTING IN BED. CALL LIGHT WITH IN REACH. NO NEEDS AT THIS TIME.
[2025-08-06 06:09] LABS: ALT (SGPT) 21.0 U/L (14-59); AST (SGOT) 21.0 U/L (15-37); GLOMERULAR FILTRATION RATE,EST 103.0 mL/min (>60); PHOSPHORUS, INORGANIC 2.1 mg/dL (2.5-4.9); PROTEIN, TOTAL 6.5 g/dL (6.4-8.2); UREA NITROGEN 11.0 mg/dL (7-18)
--- NOTE | 2025-08-06 07:06 | NUR ---
Pt report received from RNs Jeewll and Livia. Pt is resting supine in bed, eyes closed, breathing regular, even, and non-labored. Side rails up x4, call light in reach. White board updated.
--- NOTE | 2025-08-06 07:41 | NUR ---
UR CLINICAL REVIEW: 2 MN FOR VERSALUS-PER LOGISTICS LOSS PREVENTION MANAGER MEETS INPT CRITERIA FOR UTI/HIP FRACTURE POST FALL WITH NEED FOR IV ABX AND PAIN CONTROL MEDICARE INPT 08/05/25 @ 1229 ORDER MATCHES REG NO AUTH REQUIRED PER MEDICARE GUIDELINES DISCHARGE TO HOME PENDING FURTHER CASE MANAGEMENT/PT EVALUATION
[2025-08-06] MEDS ORDERED: POTASSIUM PHOSPHATE 30 MMOL in DEXTROSE 5% 500 ML IV ONE (08:00)
[2025-08-06] MEDS ORDERED: PANTOPRAZOLE SODIUM 40 MG TABEC PO SCH (09:00)
--- NOTE | 2025-08-06 10:45 | NUR ---
INTO SEE PATIENT. PERSONAL HEALTH INFORMATION REVIEWED WITH PATIENT AND BROTHER THAT SHE LIVES WITH. SISTER IN LAW LIVES THERE ALSO. THE MOBILE HOME IS ADA ACCESSIBLE. PATIENT USES WHEELCHAIR MOSTLY. PATIENT BROTHER IS PRIMARY MAINTENANCE ELECTRICIAN. THEY ARE HOPING TO GO TO SNF AFTER FOR SOME REHAB PENDING THERAPY RECCOMENDATIONS. DOES NOT USE OXYGEN OR CPAP. DENIES DIFFCULTY PAYING UTLITIES OR OBTAINING FOOD.
--- NOTE | 2025-08-06 11:25 | NUR ---
CHART SENT TO T.
[2025-08-06] MEDS ORDERED: PHARMACY RENAL DOSE ADJUSTMENT 1 DOSE MISC PO SCH (12:00)
--- NOTE | 2025-08-06 17:44 | NUR ---
GAVE PATIENT A BED BATH. KENY CAME IN AND HELPED ME CHANGE HER TAPED ATTEND AND WASH HER BACK. CATH CARE AND SKYLAR CARE WAS DONE. NEW GOWN AND SHAMPOOED HER HAIR ALSO WASHED HER FACE. COMBED HER HAIR AND PUT CHAPSTICK ON HER LIPS. PATIENT IS NOW SLEEPING.
--- NOTE | 2025-08-06 17:46 | NUR ---
FED PATIENT HER LUNCH.
--- NOTE | 2025-08-06 18:43 | NUR ---
Pt's brother in with pt at this time.
--- NOTE | 2025-08-06 19:30 | NUR ---
FED PATIENT'S DINNER AND ATE MORE THAN HALF INCLUDING DESSERT. DID ORAL CARE. WASHED HER FACE. BRINK CARE PERFORMED. V/S AND I&O'S COMPLETED.
--- NOTE | 2025-08-06 19:37 | NUR ---
PT SITTING IN BED. PT IS REQUESTING HER DINNER. SINTA IN TO HELP WITH HER DINNER. PT HAS NO ADDITIONAL NEEDS AT THIS TIME.
--- NOTE | 2025-08-06 21:12 | NUR ---
ASSESSMENT COMPLETE. PT WAS ABLE TO SWALLOW HER MEDICATIONS TONIGHT. PT DENIES PAIN AT THIS TIME. CALL LIGHT WITH IN REACH. PT HAS NO FURTHER NEEDS AT THIS TIME.
--- NOTE | 2025-08-06 23:01 | NUR ---
ADMINISTERED CARDIZEM PER ORDER. VITALS TAKEN BEFORE ADMINISTRATION. PT TOLERATED WELL. PT RESTING IN BED LISTENING TO LISTEN. CALL LIGHT WITH IN REACH. PT HAS NO FURTHER NEEDS AT THIS TIME.
[2025-08-07] VITALS (10 sets, daily range): BP systolic 130–153; BP diastolic 64–74
--- NOTE | 2025-08-07 00:35 | NUR ---
ANSWERED IV PUMP BEEPING, NEW BAG HUNG. PT SITTING IN BED LISTENING TO MUSIC ON THE TV. PT DENIES ANY NEEDS. CALL LIGHT WITH IN REACH.
--- NOTE | 2025-08-07 02:31 | NUR ---
PT RESTING EYES CLOSED. PULSE OX 94%, PULSE 83. PT DENIES ANY NEEDS AT THIS TIME. CALL LIGHT WITH IN REACH.
[2025-08-07 05:22] LABS: BASOPHILS 0.3 % (0.1-1.2); EOSINOPHILS 0.9 % (0.7-5.8); LYMPHOCYTES 16.6 % (19.3-51.7); MCH 28.6 PG (25.6-32.2); MCHC 32.6 g/dL (32.2-35.5); MCV 87.7 fL (79.4-94.8); MONOCYTES 5.3 % (4.7-12.5); NEUTROPHILS 76.2 % (34.0-71.1); RBC 3.50 M/uL (3.93-5.22)
--- NOTE | 2025-08-07 05:25 | NUR ---
ASSESSMENT COMPLETE. PT GIVEN WARM BLANKET. NO NEEDS AT THIS TIME. CALL LIGHT WITH IN REACH.
[2025-08-07 05:37] LABS: ALT (SGPT) 26.0 U/L (14-59); AST (SGOT) 23.0 U/L (15-37); GLOMERULAR FILTRATION RATE,EST 108.0 mL/min (>60); PROTEIN, TOTAL 6.0 g/dL (6.4-8.2); UREA NITROGEN 7.0 mg/dL (7-18)
--- NOTE | 2025-08-07 07:15 | NUR ---
VERBAL REPORT RECEIVED FROM MARCELO ANTONIO AND MARCELO LOPEZ. PT RESTS IN BED WITH EYES CLOSED, RESP EVEN AND UNLABOARED.
--- NOTE | 2025-08-07 09:49 | NUR ---
FED PATIENT HER BREAKFAST. DID ORAL CARE AND WASHED HER FACE. ALSO CATH CARE AND SKYLAR CARE.
--- NOTE | 2025-08-07 11:35 | NUR ---
VISITED DURING SPIRITUAL CARE ROUNDS. PT APPEARED TO BE SLEEPING. DID NOT DISTURB. PROVIDED PRAYER.
--- NOTE | 2025-08-07 11:46 | NUR ---
FLUID REMOVED FROM BRINK CATHETER BALLOON, CATHETER REMOVED, TIP INTACT. PUREWICK PUT IN PLACE. PT TOLERATES THIS WELL. EDUCATION PROVIDED TO PT. PT VERBALIZES UNDERSTANDING.
--- NOTE | 2025-08-07 19:45 | NUR ---
PT RESTING IN BED WATCHING TV. PT HAS NO NEEDS AT THIS TIME. CALL LIGHT WITH IN REACH.
--- NOTE | 2025-08-07 21:42 | NUR ---
ASSESSMENT COMPLETE. FAMILY IN ROOM. PT DENIES PAIN AT THIS TIME. PT HAS NO FURTHER NEEDS. CALL LIGHT WITH IN REACH.
--- NOTE | 2025-08-07 22:40 | NUR ---
PT RESTING IN BED WATCHING TV. PULSE OX 95% AND PULSE 74. NO NEEDS AT THIS TIME.
[2025-08-08] VITALS (12 sets, daily range): BP systolic 121–164; BP diastolic 60–72
--- NOTE | 2025-08-08 00:10 | NUR ---
PT RESTING IN BED WATCHING TV. PT DENIES ANY NEEDS AT THIS TIME.
--- NOTE | 2025-08-08 02:03 | NUR ---
PT IS RESTING IN BED WATCHING TV. VITALS COMPLETE. PT DENIES ANY NEEDS AT THIS TIME. CALL LIGHT WITH IN REACH.
--- NOTE | 2025-08-08 04:09 | NUR ---
PT RESTING IN BED WATCHING TV. PT DENIES ANY NEEDS AT THIS TIME. CALL LIGHT WITH IN REACH.
[2025-08-08 05:26] LABS: BASOPHILS 0.5 % (0.1-1.2); EOSINOPHILS 0.6 % (0.7-5.8); LYMPHOCYTES 19.4 % (19.3-51.7); MCH 28.7 PG (25.6-32.2); MCHC 33.3 g/dL (32.2-35.5); MCV 86.2 fL (79.4-94.8); MONOCYTES 5.3 % (4.7-12.5); NEUTROPHILS 73.2 % (34.0-71.1); RBC 4.07 M/uL (3.93-5.22)
[2025-08-08 05:45] LABS: ALT (SGPT) 39.0 U/L (14-59); AST (SGOT) 29.0 U/L (15-37); GLOMERULAR FILTRATION RATE,EST 106.0 mL/min (>60); PROTEIN, TOTAL 6.9 g/dL (6.4-8.2); UREA NITROGEN 5.0 mg/dL (7-18)
--- NOTE | 2025-08-08 05:57 | NUR ---
ASSESSMENT COMPLETE. PT RESTING IN BED. CALL LIGHT WITH IN REACH.
--- NOTE | 2025-08-08 07:09 | NUR ---
REPORT RECEIVED FROM MARCELO ANTONIO AND MARCELO ZAMUDIO.
--- NOTE | 2025-08-08 07:37 | NUR ---
PATIENT IS LYING IN BED WITH EYES CLOSED AND RESPIRATIONS ARE EVEN AND UNLABORED. PATIENT IS ON ROOM AIR WITH THE CPOX AT BEDSIDE. CALL LIGHT AND PERSONAL BELONGINGS ARE WITHIN REACH.
--- NOTE | 2025-08-08 08:32 | NUR ---
PATIENT IS LYING IN BED WITH HOB ELEVATED. PATIENT WITH EYES OPEN AND RESPIRATIONS ARE EVEN AND UNLABORED. PATIENT STATED GOOD MORNING UPON RN ENTERING THE ROOM. SIERRA SANTIZO IS IN THE ROOM AND ASSISTING PATIENT WITH BREAKFAST. NEW CPOX STICKER PROVIDED. PATIENT AND MOLD TOOLING TECHNICIAN STATED NO FURTHER NEEDS AT THIS TIME. CALL LIGHT AND PERSONAL BELONGINGS ARE WITHIN REACH.
--- NOTE | 2025-08-08 09:06 | NUR ---
DISCUSSED WITH PATIENT DC TO [facility] THIS MORNING. VERBALIZES UNDERSTANDING. NO QUESTIONS AT THIS TIME. UPDATED DR. SU OF TRANSPORT ARRIVAL AT 1000.
--- NOTE | 2025-08-08 09:09 | NUR ---
PATIENT IS LYING IN BED WITH HOB ELEVATED. PATIENT WITH EYES OPEN AND RESPIRATIONS ARE EVEN AND UNLABORED. SIERRA SANTIZO IS AT BEDSIDE AND ASSISTING PATIENT WITH BREAKFAST. CPOX AT BEDSIDE. CALL LIGHT AND PERSONAL BELONGINGS ARE WITHIN REACH.
--- NOTE | 2025-08-08 09:47 | NUR ---
PT LAYING IN BED WITH EYES OPEN, ALERT AND TALKATIVE. SIERRA SANTIZO, ASSISTING PT WITH BREAKFAST. PT REQUIRING ASSISTANCE BEING FED AT THIS TIME. PT IS ALERT AND ORIENTED TO SELF ONLY. IV FLUSHED WITH 10 ML NORMAL SALINE. MEDICATIONS ADMINISTERED PER THE EMAR. FULL ASSESSMENT COMPLETE AND DOCUMENTED IN CHART. LUNGS SOUND CLEAR THROUGHOUT, BOWEL TONES ACTIVE. PT DENIES ANY PAIN AT THIS TIME. PT DENIES ANY NUMBNESS OR TINGLING. PT IS ON TELE #7 IN SINUS RYTHM AT THIS TIME, NORMAL S1, S2 ASCULTATED. FRESH ICE WATER PROVIDED. PT DENIES ANY OTHER NEEDS AT THIS TIME. CALL LIGHT AND PERSONAL BELONGINGS ARE WITHIN REACH.
--- NOTE | 2025-08-08 09:49 | NUR ---
CARES BEING PROVIDED BY NURSING STAFF. NOT YET READY FOR DC. DAIGLE AT [facility] UPDATED.
--- NOTE | 2025-08-08 09:54 | NUR ---
VERBAL REPORT FROM [facility] IN LAB - POSITIVE BLOOD CULTURE GPCs IN ANAEROBIC BOTTLE ONLY. DR SU NOTIFIED. NO NEW ORDERS RECEIVED AT THIS TIME.
--- NOTE | 2025-08-08 10:06 | NUR ---
PHYSICAL AND OCCUPATIONAL THERAPY WORKING WITH PT AT THIS TIME.
[2025-08-08] MEDS ORDERED: OXYCODONE HCL 5 MG TAB PO PRN (10:30)
--- NOTE | 2025-08-08 10:31 | NUR ---
VISITED DURING SPIRITUAL CARE ROUNDS. PT CONFIRMED SCIENTOLOGIST PREFERENCE CONGREGATIONAL, ACCEPTED OFFER OF ASSISTANT PRESS OPERATOR VISIT, INDICATED MULTIPLE SPINDLE SCREW MACHINE OPERATOR OF SACRAMENT WOULD BE WELCOME. TOBACCO DRUMMER PROVIDED SUPPORTIVE PRESENCE, FACILITATED CONNECTION WITH FAM COMMUNITY, FACILITATED ADMINISTRATION OF SACRAMENT, PROVIDED PRAYER. PT EXPRESSED GRATITUDE.
--- NOTE | 2025-08-08 11:04 | NUR ---
PT SITTING UP IN BED WITH EYES OPEN. PT IS BEING ASSISTED BY SIERRA SANTIZO WITH EATING. CALL LIGHT AND PERSONAL BELONGINGS ARE WITHIN REACH.
--- NOTE | 2025-08-08 11:37 | NUR ---
DID ORAL CARE. DIDN'T FINISH THE REST OF HER BREAKFAST DO TO SHE WAS WORKING WITH PYSICAL THERAPY AND OCCUPATIONAL THERAPY. WE WILL MAKE IT UP FOR HER LUNCH.
--- NOTE | 2025-08-08 12:09 | NUR ---
PT LAYING IN BED WITH EYES OPEN, TALKING TO SIERRA SANTIZO, IN ROOM. CALL LIGHT AND PERSONAL BELONGINGS WITHIN REACH.
--- NOTE | 2025-08-08 13:36 | NUR ---
PT SITTING UP IN BED EATING LUNCH WITH ASSISTANCE FROM SIERRA SANTIZO. PT DENIES PAIN AT THIS TIME. PT IS ALERT AND ORIENTED TO PERSON, PLACE, AND EVENT BUT NOT TIME. UPON ASSESSMENT, PT'S IV APPEARED TO BE INFILTRATED. IV REMOVED, AND NEW 22 GUAGE IV PLACED IN LEFT HAND BY MARCELO NELSON. CALL LIGHT WITHIN REACH, NO FURTHER NEEDS AT THIS TIME.
--- NOTE | 2025-08-08 14:33 | NUR ---
PATIENT IS LYING IN BED WITH HOB ELEVATED. PATIENT WITH EYES OPEN AND RESPIRATIONS ARE EVEN AND UNLABORED. SIERRA SANTIZO REMAINS IN THE ROOM. CALL LIGHT AND PERSONAL BELONGINGS ARE WITHIN REACH.
--- NOTE | 2025-08-08 15:23 | NUR ---
PT SITTING UP IN BED, VISITOR IN ROOM. 1500 MEDS ADMINISTERED PER THE EMAR. CALL LIGHT AND PERSONAL BELONGINGS WITHIN REACH. NO NEEDS AT THIS TME.
--- NOTE | 2025-08-08 15:40 | NUR ---
FED PATIENT HER LUNCH WE JUST FINISHED AT 1450. FRANCY MARLEY HELPED ME CHANGE PATIENT'S TAPED ATTEND DID SKYLAR CARE AND REPLACED THE PUREWICK AT 1500. NOW SHE IS VISITING HER FRIEND. AROUND 1200 HER BROTHER CAME TO VISIT.
--- NOTE | 2025-08-08 16:17 | NUR ---
PT IN BED WITH HOB ELEVATED. EYES ARE CLOSED AND RR IS EVEN AND UNLABORED. CALL LIGHT AND PERSONAL BELONGINGS ARE WITHIN REACH.
--- NOTE | 2025-08-08 17:23 | NUR ---
SIERRA SANTIZO, IN ROOM ASSISTING PT WITH DINNER.
--- NOTE | 2025-08-08 18:00 | NUR ---
IV INTAKE CLEARED FROM THE PUMP AND DOCUMENTED IN THE CHART. NEW BAG OF MAINTENANCE FLUIDS STARTED AT THIS TIME. PATIENT IS LYING IN BED WITH HOB ELEVATED. SIRERA SANTIZO IS AT BEDSIDE AND ASSISTING PATIENT WITH DINNER. PATIENT STATED NO FURTHER NEEDS AT THIS TIME. CALL LIGHT AND PERSONAL BELONGINGS ARE WITHIN REACH.
--- NOTE | 2025-08-08 18:39 | NUR ---
I FED PATIENT HER DINNER. PATIENT WAS WATCHING THE GAME SHOW NETWORK. NOW PATIENT IS STARTING TO FALL ASLEEP. BED ALARM ON.
--- NOTE | 2025-08-08 19:10 | NUR ---
REPORT RECEIVED FROM BOUCHRA ROBERTSON. pt RESTING IN THE BED WITH EYES CLOSED. BOARD UPDATED. NO OTHER NEEDS AT THIS TIME. CALL LIGHT WITHIN REACH.
--- NOTE | 2025-08-08 20:55 | NUR ---
ASSESSMENT AND VITAL SIGNS DONE. IV ASSESSED, WNL. SCHEDULED MEDS ADMININISTERED. pt DENIES ANY PAIN AT THIS TIME. PURE WICK CANISTER EMPTIED. pt DENIES ANY OTHER NEEDS AT THIS TIME. CALL LIGHT WITHIN REACH.
--- NOTE | 2025-08-08 22:36 | NUR ---
pt resting in the bed with eyes closed. rr even and unlabored. call light within reach.
--- NOTE | 2025-08-09 00:16 | NUR ---
pt RESTING IN THE BED WITH EYES CLOSED. RR EVEN AND UNLABORED. CALL LIGHT WITHIN REACH.
[2025-08-09 01:43] VITALS: BP 170/63
[2025-08-09 01:46] VITALS: BP 170/63
--- NOTE | 2025-08-09 01:54 | NUR ---
VITAL SIGNS DONE. pt C/O 06/07 PAIN. PRN PAIN MEDS ADMINSTERED. pt PURE WICK CANISTER. pt DENIES ANY OTHER NEEDS AT THIS TIME. CALL LIGHT WITHIN REACH.
--- NOTE | 2025-08-09 03:29 | NUR ---
pt RESTING IN THE BED WITH EYES CLOSED. RR EVEN AND UNLABORED. CALL LIGHT WITHIN REACH.
[2025-08-09 05:42] VITALS: BP 152/81
[2025-08-09 05:44] VITALS: BP 152/81
--- NOTE | 2025-08-09 05:49 | NUR ---
IN RM TO DO VITAL SIGNS AND CHANGE pt'S PURE WICK. NEW BAG OF IVF INFUSING PER ORDER. pt DENIES ANY OTHER NEEDS AT THIS TIME. CALL LIGHT WITHIN REACH.
[2025-08-09 05:51] LABS: BASOPHILS 0.6 % (0.1-1.2); EOSINOPHILS 0.9 % (0.7-5.8); LYMPHOCYTES 23.7 % (19.3-51.7); MCH 28.4 PG (25.6-32.2); MCHC 33.0 g/dL (32.2-35.5); MCV 85.8 fL (79.4-94.8); MONOCYTES 5.3 % (4.7-12.5); NEUTROPHILS 66.6 % (34.0-71.1); RBC 4.09 M/uL (3.93-5.22)
[2025-08-09 06:08] LABS: ALT (SGPT) 35.0 U/L (14-59); AST (SGOT) 22.0 U/L (15-37); GLOMERULAR FILTRATION RATE,EST 105.0 mL/min (>60); PROTEIN, TOTAL 7.0 g/dL (6.4-8.2); UREA NITROGEN 16.0 mg/dL (7-18)
--- NOTE | 2025-08-09 07:03 | NUR ---
Pt report received from MARCELO Wallace.
--- NOTE | 2025-08-09 08:22 | NUR ---
CALLED [facility] TO SCHEDULE NONEMERGENT TRANSPORT AT 1030.
--- NOTE | 2025-08-09 08:45 | NUR ---
Spoke with Valdez. Sarah is feeding her. She denies needs. Discussed she will dc to [facility] today. Pt believes she already at [facility]. I let her know EMS will be here around 10:30 to transport her. She denies any other needs. Awaiting orders for dc.
[2025-08-09 08:46] VITALS: BP 144/65
--- NOTE | 2025-08-09 08:54 | NUR ---
PATIENT IS IN HER BED AT THIS TIME, MOLDER PIPE COVERING ASSISTED IN FEEDING THE PATIENT BREAKFAST, EMPTIED HER PUREWICK, GAVE PATIENT A BED BATH, CHARTED VITALS AND I&O'S, CHANGED BREIF, GOT FRESH ICE WATER, CALL LIGHT WITH IN REACH AND NOTHING ELSE NEEDED AT THIS TIME.
[2025-08-09] MEDS ORDERED: SENNOSIDES/DOCUSATE 1 EA TAB PO SCH (09:00)
[2025-08-09 09:03] VITALS: BP 133/62
--- NOTE | 2025-08-09 09:09 | NUR ---
REPORT RECIEVED FROM MARCELO TRAVIS. PATIENT RESTING IN BED. VITAL SIGNS TAKEN AND ARE STABLE. FRESH ICE WATER PROVIDED. MARCELO TRAVIS IN ROOM ADMINISTERING PATIENT MEDICATIONS. CALL LIGHT AND PERSONAL BELONGINGS ARE WITHIN REACH.
[2025-08-09] MEDS ORDERED: CEFUROXIME500 MG PO (09:42)
--- NOTE | 2025-08-09 10:02 | NUR ---
PATIENT WAS IN BED AT THIS TIME, CONTROL PANEL OPERATOR CRUDE UNIT ASSISTED PATIENT IN A FULL BEDBATH, WASHED HER HAIR, PUT LOTION ON, CHANGED HER PUREWICK, GOT A NEW GOWN, BRUSHED HER HAIR AND TEETH. CALL LIGHT WITH IN REACH AND NOTHING ELSE NEEDED AT THIS TIME.
--- NOTE | 2025-08-09 10:03 | NUR ---
BROTHER, LEONORA, IN ROOM WITH PATIENT. INFORMED PATIENT AND BROTHER AMBULANCE IS TAKING HER TO [facility] AT 10:30 THIS AM. LEONORA IS GOING TO TAKE PATIENT'S WHEELCHAIR AND OTHER BELONGINGS HOME. PATIENT DENIES NEEDS. ORDERS FAXED TO [facility].
--- NOTE | 2025-08-09 10:38 | NUR ---
REPORT CALLED TO RADHA SAGE CLARK.
== END 2025-08-09 10:30 | DRG 871 ==
LOC: ED 09:25 → MS 12:42
PROVIDERS: Emergency Medicine; ADMIT Family Medicine; ATTEND Student in an Organized Health Care Education/Training Program
PROC: 3E03329 Introduction of Other Anti-infective into Peripheral Vein, Percutaneous Approach (ICD-10-PCS; principal; 2025-08-05)
PROC: 0T9B70Z Drainage of Bladder with Drainage Device, Via Natural or Artificial Opening (ICD-10-PCS; 2025-08-05)
DX: A41.9 Sepsis, unspecified organism (principal); S72.111A Displaced fracture of greater trochanter of right femur, initial encounter for closed fracture; N39.0 Urinary tract infection, site not specified; F03.94 Unspecified dementia, unspecified severity, with anxiety; F03.93 Unspecified dementia, unspecified severity, with mood disturbance; B96.20 Unspecified Escherichia coli [E. coli] as the cause of diseases classified elsewhere; W06.XXXA Fall from bed, initial encounter; G35 Multiple sclerosis; I48.91 Unspecified atrial fibrillation; I25.10 Atherosclerotic heart disease of native coronary artery without angina pectoris; I10 Essential (primary) hypertension; E78.00 Pure hypercholesterolemia, unspecified; E87.6 Hypokalemia; R79.89 Other specified abnormal findings of blood chemistry; K21.9 Gastro-esophageal reflux disease without esophagitis; E83.39 Other disorders of phosphorus metabolism; Z96.641 Presence of right artificial hip joint; Z79.01 Long term (current) use of anticoagulants; Z88.8 Allergy status to other drugs, medicaments and biological substances; Z99.3 Dependence on wheelchair; Z88.6 Allergy status to analgesic agent; Z88.5 Allergy status to narcotic agent; Z88.1 Allergy status to other antibiotic agents; Z79.51 Long term (current) use of inhaled steroids; Z79.899 Other long term (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; Y92.009 Unspecified place in unspecified non-institutional (private) residence as the place of occurrence of the external cause
CPT/HCPCS: 36415; 70450; 71045; 72125; 72170; 73700; 80053; 81001; 82550; 83605; 83735; 84100; 85025; 85610; 85730; 87040; 87077; 87088; 87186; 94762; 97110; 97163; 97167; 97530; 97535; A9270; G0480; J0131; J0696; J1720; J2270; J3480; J7030; J7060